=== PATIENT | female | born 1945 | race Caucasian/White ===

== ENCOUNTER 2020-12-02 10:08 | Outpatient (REF) | payer MEDICARE, SELFPAY ==
[2020-12-02 12:24] LABS: Alanine Aminotransferase 13 U/L (0-31); Albumin Level 4.1 g/dL (3.5-5.0); Alkaline Phosphatase 60 U/L (39-117); Anion Gap 12 (12-20); Aspartate Amino Transferase 21 U/L (5-31); Bilirubin Total 0.7 mg/dL (0.0-1.0); Blood Urea Nitrogen 20 mg/dL (9-16); Calcium 8.7 mg/dL (8.4-10.2); Carbon Dioxide 28 mmol/L (22-29); Chloride 105 mmol/L (96-108); Cholesterol 167 mg/dL; Estimated Glomerular Filt Rate > 60; Glucose Fasting 109 mg/dL (60-99); HDL Cholesterol 49 mg/dL; LDL Cholesterol Calculated 102 mg/dl; Potassium 4.2 mmol/L (3.3-5.1); Sodium 141 mmol/L (135-145); Total Protein 6.6 g/dL (6.5-8.0); Triglycerides 81 mg/dL
[2020-12-02 13:16] LABS: Estimated Average Glucose 128 mg/dL; Hemoglobin A1c % 6.1 %
== END 2020-12-02 10:09 | disposition home or self-care (01) ==
LOC: HO.MANLR 10:08
PROVIDERS: PCP Internal Medicine; Visit Provider Physician Assistant
DX: E11.9 Type 2 diabetes mellitus without complications (principal)
CPT/HCPCS: 36415; 80053; 80061; 83036

== ENCOUNTER 2021-06-02 11:00 | Outpatient (REF) | payer MEDICARE, SELFPAY ==
[2021-06-02 14:36] LABS: Alanine Aminotransferase 12 U/L (0-31); Albumin Level 4.1 g/dL (3.5-5.0); Alkaline Phosphatase 65 U/L (39-117); Anion Gap 14 (12-20); Aspartate Amino Transferase 19 U/L (5-31); Bilirubin Total 0.6 mg/dL (0.0-1.0); Blood Urea Nitrogen 16 mg/dL (9-16); Calcium 9.4 mg/dL (8.4-10.2); Carbon Dioxide 25 mmol/L (22-29); Chloride 105 mmol/L (96-108); Cholesterol 166 mg/dL; Estimated Average Glucose 123 mg/dL; Estimated Glomerular Filt Rate > 60; Glucose Fasting 117 mg/dL (60-99); HDL Cholesterol 53 mg/dL; Hemoglobin A1c % 5.9 %; LDL Cholesterol Calculated 91 mg/dl; Potassium 4.4 mmol/L (3.3-5.1); Sodium 140 mmol/L (135-145); Total Protein 6.5 g/dL (6.5-8.0); Triglycerides 114 mg/dL
[2021-06-02 14:43] LABS: Creatinine Urine 91.18 mg/dL; Microalbumin Urine < 5.0 mg/L
== END 2021-06-02 11:01 | disposition home or self-care (01) ==
LOC: HO.MANLDS 11:00
PROVIDERS: PCP Physician Assistant; Visit Provider Physician Assistant
DX: E11.9 Type 2 diabetes mellitus without complications (principal); I10 Essential (primary) hypertension
CPT/HCPCS: 36415; 80053; 80061; 82043; 83036

== ENCOUNTER 2021-07-03 09:09 | Outpatient (REF) | payer MEDICARE, SELFPAY ==
--- NOTE | ~2021-07-03 | MM_ITS ---
EXAMINATION: MM SCREENING DIGITAL BREAST TOMOSYNTHESIS, BILATERAL CLINICAL INFORMATION: Screening. Asymptomatic. The lifetime risk of breast cancer based on the Tyrer-Cuzick Model is 3%. COMPARISON: Mammography: 07/30/2019, 07/28/2018, 07/22/2017 TECHNIQUE: Digital breast tomosynthesis is performed in both the craniocaudal and mediolateral oblique views along with computer-aided detection (CAD). Synthesized 2D images are generated from the tomosynthesis. FINDINGS: There are scattered areas of fibroglandular density (ACR BI-RADS breast composition Category b). Fibronodular parenchymal pattern is similar to prior exams. There is no developing density or significant mass or architectural abnormality. Scattered calcifications are again noted, round, vascular, and some ductal secretory. The axilla and skin contours are unremarkable. There are no significant changes. MM/MM tomosynthesis screening BI IMPRESSION: No significant changes from prior exams. ASSESSMENT: BI-RADS 2: Benign RECOMMENDATION: Routine annual mammography screening. This patient's information was entered into a reminder system with a target due date for their next mammogram.
== END 2021-07-03 09:10 | disposition home or self-care (01) ==
LOC: HO.MAMMO 09:09
PROVIDERS: Visit Provider Internal Medicine
DX: Z12.31 Encounter for screening mammogram for malignant neoplasm of breast (principal)
CPT/HCPCS: 77063; 77067

== ENCOUNTER 2021-12-27 11:18 | Outpatient (REF) | payer MEDICARE, SELFPAY ==
[2021-12-27 12:49] LABS: Estimated Average Glucose 123 mg/dL; Hemoglobin A1c % 5.9 %
[2021-12-27 12:53] LABS: Alanine Aminotransferase 14 U/L (0-31); Alkaline Phosphatase 65 U/L (39-117); Anion Gap 10 (12-20); Aspartate Amino Transferase 18 U/L (5-31); Bilirubin Total 0.8 mg/dL (0.0-1.0); Blood Urea Nitrogen 20 mg/dL (9-16); Calcium 9.3 mg/dL (8.4-10.2); Carbon Dioxide 28 mmol/L (22-29); Chloride 104 mmol/L (96-108); Cholesterol 183 mg/dL; Estimated Glomerular Filt Rate > 60; Glucose Fasting 115 mg/dL (60-99); HDL Cholesterol 51 mg/dL; LDL Cholesterol Calculated 110 mg/dl; Sodium 138 mmol/L (135-145); Total Protein 6.5 g/dL (6.5-8.0); Triglycerides 113 mg/dL
== END 2021-12-27 11:19 | disposition home or self-care (01) ==
LOC: HO.MANLDS 11:18
PROVIDERS: PCP Physician Assistant; Visit Provider Physician Assistant
DX: E11.9 Type 2 diabetes mellitus without complications (principal); I10 Essential (primary) hypertension
CPT/HCPCS: 36415; 80053; 80061; 83036

== ENCOUNTER 2022-06-29 10:41 | Outpatient (REF) | payer MEDICARE, SELFPAY ==
[2022-06-29 14:32] LABS: Alanine Aminotransferase 14 U/L (0-31); Albumin Level 4.2 g/dL (3.5-5.0); Alkaline Phosphatase 64 U/L (39-117); Anion Gap 14 (12-20); Aspartate Amino Transferase 20 U/L (5-31); Bilirubin Total 0.5 mg/dL (0.0-1.0); Blood Urea Nitrogen 18 mg/dL (9-16); Calcium 9.5 mg/dL (8.4-10.2); Carbon Dioxide 29 mmol/L (22-29); Chloride 104 mmol/L (96-108); Cholesterol 172 mg/dL; Estimated Average Glucose 126 mg/dL; Estimated Glomerular Filt Rate > 60; Glucose Random 119 mg/dL (60-115); HDL Cholesterol 60 mg/dL; Hemoglobin A1C 147.8116 umol/L; LDL Cholesterol Calculated 97 mg/dl; Sodium 142 mmol/L (135-145); Total Protein 6.6 g/dL (6.5-8.0); Triglycerides 79 mg/dL
== END 2022-06-29 10:42 | disposition home or self-care (01) ==
LOC: HO.MANLDS 10:41
PROVIDERS: Visit Provider Physician Assistant
DX: E11.9 Type 2 diabetes mellitus without complications (principal); I10 Essential (primary) hypertension
CPT/HCPCS: 36415; 80053; 80061; 83036

== ENCOUNTER 2022-07-12 09:25 | Outpatient (REF) | payer MEDICARE, SELFPAY ==
--- NOTE | ~2022-07-12 | MM_ITS ---
EXAMINATION: MM SCREENING DIGITAL BREAST TOMOSYNTHESIS, BILATERAL CLINICAL INFORMATION: Screening. Asymptomatic. The lifetime risk of breast cancer based on the Tyrer-Cuzick Model is 2.2%. COMPARISON: Mammography: July 03, 2021 and studies dating back to February 03, 2014 TECHNIQUE: Digital breast tomosynthesis is performed in both the craniocaudal and mediolateral oblique views along with computer-aided detection (CAD). Synthesized 2D images are generated from the tomosynthesis. FINDINGS: There are scattered areas of fibroglandular density (ACR BI-RADS breast composition Category b). There are no significant masses, abnormal calcifications, or other abnormalities. MM/MM tomosynthesis screening BI IMPRESSION: No significant changes from prior exam. ASSESSMENT: BI-RADS 1: Negative RECOMMENDATION: Routine annual mammography screening. This patient's information was entered into a reminder system with a target due date for their next mammogram.
== END 2022-07-12 09:26 | disposition home or self-care (01) ==
LOC: HO.MAMMO 09:25
PROVIDERS: PCP Internal Medicine; Visit Provider Internal Medicine
DX: Z12.31 Encounter for screening mammogram for malignant neoplasm of breast (principal)
CPT/HCPCS: 77063; 77067

== ENCOUNTER 2023-01-09 10:50 | Outpatient (REF) | payer MEDICARE, SELFPAY ==
[2023-01-09 13:16] LABS: Alanine Aminotransferase 10 U/L (0-31); Albumin Level 4.1 g/dL (3.5-5.0); Alkaline Phosphatase 73 U/L (39-117); Anion Gap 14 (12-20); Aspartate Amino Transferase 17 U/L (5-31); Bilirubin Total 0.9 mg/dL (0.0-1.0); Blood Urea Nitrogen 17 mg/dL (9-16); Carbon Dioxide 25 mmol/L (22-29); Chloride 105 mmol/L (96-108); Cholesterol 166 mg/dL; Estimated Glomerular Filt Rate > 60; Glucose Random 115 mg/dL (60-115); HDL Cholesterol 60 mg/dL; LDL Cholesterol Calculated 89 mg/dl; Potassium 4.4 mmol/L (3.3-5.1); Sodium 140 mmol/L (135-145); Total Protein 6.3 g/dL (6.5-8.0); Triglycerides 86 mg/dL
[2023-01-09 13:22] LABS: Estimated Average Glucose 126 mg/dL
[2023-01-09 13:35] LABS: Creatinine Urine 91.94 mg/dL; Microalbum/Creatinine Ratio Ur 11.9 ug/mg cr
== END 2023-01-09 10:51 | disposition home or self-care (01) ==
LOC: HO.MANLDS 10:50
PROVIDERS: Visit Provider Physician Assistant
DX: E11.9 Type 2 diabetes mellitus without complications (principal); I10 Essential (primary) hypertension
CPT/HCPCS: 36415; 80053; 80061; 82043; 83036

== ENCOUNTER 2023-07-15 11:07 | Outpatient (REF) | payer MEDICARE, SELFPAY ==
[2023-07-15 13:54] LABS: Alanine Aminotransferase 12 U/L (0-31); Albumin Level 3.9 g/dL (3.5-5.0); Alkaline Phosphatase 62 U/L (39-117); Anion Gap 14 (12-20); Aspartate Amino Transferase 18 U/L (5-31); Bilirubin Total 0.7 mg/dL (0.0-1.0); Blood Urea Nitrogen 19 mg/dL (9-16); Calcium 9.5 mg/dL (8.4-10.2); Carbon Dioxide 26 mmol/L (22-29); Chloride 104 mmol/L (96-108); Cholesterol 174 mg/dL (<200); Estimated Glomerular Filt Rate > 60; Glucose Random 113 mg/dL (60-115); HDL Cholesterol 55 mg/dL (>40); LDL Cholesterol Calculated 95 mg/dL (<100); Potassium 3.9 mmol/L (3.3-5.1); Sodium 140 mmol/L (135-145); Total Protein 6.7 g/dL (6.5-8.0); Triglycerides 120 mg/dL (<150)
== END 2023-07-15 11:08 | disposition home or self-care (01) ==
LOC: HO.MANLDS 11:07
PROVIDERS: Visit Provider Physician Assistant
DX: E11.9 Type 2 diabetes mellitus without complications (principal)
CPT/HCPCS: 36415; 80053; 80061

== ENCOUNTER 2024-01-07 11:15 | Outpatient (REF) | payer MEDICARE, SELFPAY ==
[2024-01-07 13:52] LABS: Estimated Average Glucose 131 mg/dL; Hemoglobin A1c % 6.2 % (<6.0)
[2024-01-07 14:07] LABS: Alanine Aminotransferase 11 U/L (0-31); Albumin Level 4.2 g/dL (3.5-5.0); Alkaline Phosphatase 64 U/L (39-117); Anion Gap 12 (12-20); Aspartate Amino Transferase 19 U/L (5-31); Bilirubin Total 0.8 mg/dL (0.0-1.0); Blood Urea Nitrogen 20 mg/dL (9-16); Calcium 9.7 mg/dL (8.4-10.2); Carbon Dioxide 27 mmol/L (22-29); Chloride 104 mmol/L (96-108); Cholesterol 197 mg/dL (<200); Estimated Glomerular Filt Rate > 60; Glucose Random 108 mg/dL (60-115); HDL Cholesterol 55 mg/dL (>40); LDL Cholesterol Calculated 121 mg/dL (<100); Potassium 3.9 mmol/L (3.3-5.1); Sodium 139 mmol/L (135-145); Total Protein 7.1 g/dL (6.5-8.0); Triglycerides 107 mg/dL (<150)
== END 2024-01-07 11:16 | disposition home or self-care (01) ==
LOC: HO.MANLDS 11:15
PROVIDERS: Visit Provider Physician Assistant
DX: E11.9 Type 2 diabetes mellitus without complications (principal); I10 Essential (primary) hypertension
CPT/HCPCS: 36415; 80053; 80061; 82043; 82570; 83036

== ENCOUNTER 2024-03-05 09:35 | Inpatient (IN) | payer MEDICARE, SELFPAY ==
--- NOTE | ~2024-03-05 | US_ITS ---
EXAMINATION: US ABDOMEN LIMITED CLINICAL INFORMATION: Gallbladder mass. COMPARISON: CT chest 03/05/2024. TECHNIQUE: Real-time imaging of the right upper quadrant abdominal viscera. FINDINGS: PANCREAS: Obscured by bowel gas. LIVER: The liver is not enlarged. No discrete liver mass is seen although there is suboptimal visualization. No visible biliary ductal dilatation. GALLBLADDER: Calcified gallstone versus calcified mass in the gallbladder is not well evaluated due to limited visualization. COMMON BILE DUCT: Obscured by bowel gas. RIGHT KIDNEY: Question mild hydronephrosis. No renal calculi or focal parenchymal lesions. The kidney measures 10.6 cm in maximum dimension. FREE FLUID: Moderate. US/US abdomen limited IMPRESSION: Significantly limited evaluation due to bowel gas and ascites. Calcified gallstone versus calcified mass in the gallbladder is not well evaluated. Recommend further evaluation with CT of the abdomen without and with intravenous contrast. Question mild hydronephrosis. Recommend further evaluation with CT of the abdomen and pelvis with intravenous contrast.
--- NOTE | ~2024-03-05 | XR_ITS ---
EXAMINATION: XR CHEST CLINICAL INFORMATION: Weakness COMPARISON: Same-day chest CT TECHNIQUE: 2 views of the chest were obtained. FINDINGS: There are multiple nodular opacities throughout the lungs. The cardiomediastinal silhouette is within normal limits. There are no pleural effusions. Small calcific density adjacent to the right humeral head is consistent with calcific tendinitis. No acute osseous abnormalities. XR/XR chest 2V IMPRESSION: Multiple pulmonary nodules are present. Chest CT was performed today.
--- NOTE | ~2024-03-05 | CT_ITS ---
EXAMINATION: CT CHEST WITHOUT CONTRAST CLINICAL INFORMATION: Multiple pulmonary nodules on chest radiograph COMPARISON: Chest radiograph earlier today TECHNIQUE: Multidetector volumetric CT imaging of the chest was done. Axial MIP volume rendering provided. Sagittal and coronal reformatted images were obtained. This CT examination was performed using dose optimization techniques as appropriate, variously including the following: *Automated exposure control *Adjustment of mA and/or kV according to patient size (this includes techniques or standardized protocols for targeted exams where dose is matched to indication/reason for exam; i.e. extremities or head) *Use of iterative reconstruction technique DLP: 275 mGy-cm FINDINGS: LUNGS: Innumerable pulmonary nodules are seen scattered throughout the lungs ranging in size from under a centimeter to up to 2 cm. Most are noncavitary but certainly a number of lesions are cavitary at one of the largest lesions which demonstrates cavitation is a 2 cm ovoid mass in the superior segment of the left lower lobe (5:183). No consolidations are seen. Central airways are patent. No significant emphysematous changes are noted. MEDIASTINUM: No significant mediastinal lymphadenopathy is seen. There is a large right hilar mass present which measures 3.9 x 1.8 x 2.1 cm (8:43 and 3:24). The lindsey are suboptimally evaluated secondary to lack of IV contrast. CORONARY ARTERY CALCIFICATION: Mild PLEURA: There is no pleural effusion. No pleural mass or thickening. AXILLA: No lymphadenopathy. UPPER ABDOMEN: Moderate ascites is present. The gallbladder is abnormal with irregular calcification near the fundus and some other calcifications which could represent gallstones. No biliary ductal dilatation or visualized liver mass is seen on the noncontrast CT. Stranding is present in the mesentery with some nodular masses seen again (3:51 and 56) which suggest the presence of omental carcinomatosis. Fluid density is seen within the renal pelves bilaterally which I suspect is parapelvic cysts but hydronephrosis cannot be excluded. This OSSEOUS STRUCTURES: No evidence of bony metastatic disease. CT/CT chest wo IV con IMPRESSION: 1. Innumerable pulmonary nodules some of which are cavitary. There is a large right hilar mass. Findings are most consistent with metastatic disease. 2. Abnormal gallbladder with calcifications and possible gallstones. A gallbladder mass cannot be excluded. Ultrasound of the gallbladder may be helpful. A paracentesis could be performed at that time for diagnosis. 3. Moderate ascites with omental carcinomatosis. 4. Fluid density in the renal pelves bilaterally which I suspect is parapelvic cysts but hydronephrosis cannot be excluded. Fleischner guidelines were followed.
--- NOTE | ~2024-03-05 | US_ITS ---
ULTRASOUND PARACENTESIS HISTORY: Ascites. Lung metastases and omental caking on cross-sectional imaging. Diagnostic and therapeutic. Risks and benefits and possible complications were discussed with the patient and consent form was signed. A safe pocket of ascitic fluid was identified using ultrasound guidance, and the overlying skin was marked. The abdomen prepped and draped in sterile fashion. 1% lidocaine was used as a local anesthetic. Using ultrasound guidance, a 5 fr catheter was placed into the ascitic pocket in the right upper quadrant. 1.4 liters of non-clotting, blood tinged fluid was removed passively. The catheter was then removed. A small sample was sent for laboratory analysis. A few technology sales representative images from before and after the examination were obtained. The procedure was performed by Torsten Deleon PA-C and supervised by Dr. [place]. US/US paracentesis abd w/image IMPRESSION: Ultrasound-guided diagnostic and therapeutic paracentesis as described above. No immediate complications
--- NOTE | ~2024-03-05 | CT_ITS ---
EXAMINATION: CT ABDOMEN AND PELVIS WITHOUT AND WITH CONTRAST CLINICAL INFORMATION: Gallbladder mass, possible mild hydronephrosis COMPARISON: Abdominal ultrasound from earlier same day. TECHNIQUE: Multidetector volumetric imaging was performed of the abdomen and pelvis before and after the IV administration of 85 mL of Omnipaque 350 intravenous contrast. Sagittal and coronal reformatted images were obtained on the technologist's workstation. This CT examination was performed using dose optimization techniques as appropriate, variously including the following: *Automated exposure control *Adjustment of mA and/or kV according to patient size (this includes techniques or standardized protocols for targeted exams where dose is matched to indication/reason for exam; i.e. extremities or head) *Use of iterative reconstruction technique DLP: 1800 mGy-cm FINDINGS: LUNG BASES: Redemonstrated, incompletely visualized innumerable, round, randomly distributed bilateral solid pulmonary nodules, better assessed on dedicated CT chest performed previous day. Multivessel coronary artery calcifications present. LIVER AND BILIARY TREE: Unremarkable. 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 No suspicious gallbladder lesions identified. PANCREAS: Unremarkable. SPLEEN: Unremarkable. ADRENAL GLANDS: Unremarkable. KIDNEYS AND URETERS: Mild left greater than right hydroureteronephrosis to the level of the pelvic inlet where the ureters course adjacent to the dominant left adnexal mass. GASTROINTESTINAL TRACT: Small esophageal hiatal hernia. Normal appendix. VASCULAR: Moderate aortoiliac calcific atherosclerosis. Dilated left gonadal vein courses between the left adnexal mass and the uterus. LYMPH NODES: Large right hilar lymph node, incompletely visualized. Enlarged bilateral iliac bifurcation lymph nodes, measuring up to 2.1 cm on the right (series 15, image 564), and 1.9 cm on the left (series 15, image 541). PERITONEUM: Small to moderate simple ascites extensive omental and peritoneal nodularity, for example an irregular, soft tissue attenuation left mid abdominal peritoneal nodule measures 2.3 x 1.2 cm (series 15, image 296) and a left anterior pelvic peritoneal nodule measures 2.3 x 1.2 cm (series 15, image 644). BLADDER: Unremarkable. PELVIC VISCERA: Large, well-circumscribed, heterogeneous attenuation left adnexal mass, measuring 22 x 12 x 12 cm (series 8, image 52; series 15, image 566), which displaces the uterus right anteriorly. Calcified uterine fundal myoma. Right ovarian 2.5 cm simple appearing cystic lesion. Right adnexa otherwise unremarkable. ABDOMINAL AND PELVIC WALL: Unremarkable. OSSEOUS STRUCTURES: Mild multilevel degenerative lumbar spondylosis. CT/CT abdomen pelvis wo/w IV con IMPRESSION: 1. Large, 22 cm heterogeneous attenuation left adnexal mass, highly suspicious for primary ovarian neoplasm, with evidence of omental/peritoneal carcinomatosis, and bilateral pelvic chilo disease. Extensive pulmonary and thoracic chilo disease better assessed on recent prior CT chest. 2. Mild left greater than right hydroureteronephrosis to the level of the pelvic inlet where the ureters course adjacent to the dominant left adnexal mass, likely relates to mass effect given size of pelvic mass, though direct ureteral involvement could appear similar. 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 No suspicious call bladder lesions identified.
[2024-03-05 09:36] VITALS: BP 128/74; PULSE 103; RESP 19; TEMP 36.6; O2SAT 95; BMI 28.3
--- NOTE | 2024-03-05 10:10 | ED.GENADULT ---
HPI - General Adult General Chief complaint: General Medical Stated complaint: Low BP, upper resp symptoms Time Seen by Provider: 03/05/24 10:08 Source: patient Mode of arrival: ambulatory Limitations: no limitations History of Present Illness ED Provider: Dr. Ryan Lopez HPI narrative: 79 year old female has never been here before PMH: HTN, HLd pre diabetes comes into the ER with cough congestion for two weeks which is resolving and now has decreased appetite and generalized weakness. Patient comes into the emergency department for 2 weeks of symptoms. She started with upper respiratory symptoms which gradually evolved into a runny nose urinary frequency weakness decreased appetite and decreased energy. She denies any room spinning or vertigo she denies any disequilibrium she denies any falls denies chest pain cough or shortness of breath she denies any abdominal pain. Related Data Allergies Allergy/AdvReac Type Severity Reaction Status Date / Time Sulfa (Sulfonamide Allergy Unknown Verified 03/05/24 09:44 Antibiotics) Review of Systems Review of Systems: Review of systems: General: Patient denies any fever chills recent illness or falls Musculoskeletal: Denies back pain or body aches or other injuries HEENT: denies headache, runny nose, ear pain Respiratory: denies shortness of breath, cough Cardiovascular: no chest pain or palpitations : denies dysuria, frequency Abdomen: no nausea vomiting denies abdominal pain Extremities: no swelling, no pain Skin: no diaphoresis Yes all other systems are reviewed and are negative PMFSH Social History Social History Smoked in Last 30 Days: No Use of substances other than those prescribed or required for medical reasons: No Advance Directives: Yes Advance Directives Information Provided: Yes Advance Directives on File: No Do you have a plan to hurt others: No Plan Physical Exam ED Vital Signs: Vital Signs - 24 hr 03/05/24 09:36 03/05/24 10:41 03/05/24 12:13 Temperature 98 F 98.2 F 98.2 F Pulse Rate 103 H 91 90 Respiratory Rate 19 18 16 Blood Pressure 128/74 127/63 126/53 L Pulse Oximetry 95 94 95 Oxygen Delivery Method Room Air Room Air Room Air BMI result Body Mass Index 28.3 General: Well-appearing well-nourished in no signs of distress HEENT: Normocephalic atraumatic throat and tongue coated with yellowish coat concerning for thrush Neck: No signs of JVD, no masses no tenderness or lymphadenopathy Cardiovascular: Regular rate and rhythm Respiratory: Clear to auscultation bilaterally Abdomen: Soft nontender no masses Extremities: Normal pedal pulses no signs of edema Skin: Dry warm no rashes Back: No tenderness full ROM Course Course Course Narrative: I explained the elevated calcium as well as the x-ray findings we will send patient for CT chest patient does have a family history of ovarian cancer in her mother she has no abdominal pain or distention. I will give the CT the chest and consult Hematology-Oncology. Reevaluation(s) Reevaluation #1: [id number] Pace who agreed with admission. I spoke with Dr. Marin who agrees with admission. Medications Administered Discontinued Medications Generic Name Dose Route Start Last Admin Trade Name Freq PRN Reason Stop Dose Admin Sodium Chloride 1,000 mls @ 999 mls/hr 03/05/24 10:30 03/05/24 12:41 Ns IV 03/05/24 11:30 Infused .Q1H1M BLANK Infusion Sodium Chloride 1,000 mls @ 999 mls/hr 03/05/24 11:30 03/05/24 12:35 Ns IV 03/05/24 12:30 999 mls/hr .Q1H1M BLANK Administration Pamidronate Disodium 60 mg/ 260 mls @ 130 mls/hr 03/05/24 11:31 03/05/24 12:35 Sodium Chloride IV 03/05/24 13:30 130 mls/hr ONCE ONE Administration Nystatin 500,000 unit 03/05/24 10:22 03/05/24 10:58 Nystatin Oral Susp 500,000 Unit/5 Ml Oral.Susp PO 03/05/24 10:23 500,000 unit ONCE ONE Administration Protocol Medical Decision Making Medical Decision Making [facility] Narrative: Her throat does look like thrush I will give nystatin to swish and swallow Patient is appearing cm generalized weakness very vague in her complaints looks very well we will recheck labs and reassess Differential Diagnosis Differential Diagnoses: The differential diagnosis associated with the presentation includes Vague symptoms generalized weakness electrolyte abnormality dehydration recent cold flu COVID new onset diabetes diabetic ketoacidosis dehydration thrush Admission/Observation Consideration of admission/observation: Escalation of care including admission/observation considered Consult Healthcare Provider Management of the patient was discussed with: Hospitalist and E Merchant Lab Data [facility] Lab Attestation statement: I reviewed the patient's lab results. Lab show calcium that is very elevated I will start the patient on IV bisphosphonate unfortunately were unable to give Reclast here except for the infusion centers I will start with pamidronate I will also give the patient fluids and calcitonin 03/05/24 10:53 03/05/24 10:53 Labs: Lab Results 03/05/24 03/05/24 03/05/24 Range/Units 10:53 11:27 11:28 WBC 12.8 H (4.8-10.8) X10*3/uL RBC 5.07 (4.20-5.50) X10*6/uL Hgb 14.3 (12.0-16.0) g/dl Hct 43.8 (37.0-47.0) % MCV 86.4 (80.0-98.0) fL MCH 28.2 (27.0-33.0) pg MCHC 32.6 (31.0-35.0) g/dl RDW 13.4 (11.0-16.0) % Plt Count 266 (160-400) X10*3/uL MPV 10.8 (9.4-12.3) fL Immature Gran % (Auto) 0.5 H (0.0-0.4) % Neut % (Auto) 80.2 H (45-73) % Lymph % (Auto) 8.5 L (20-40) % [place] % (Auto) 10.0 (2-11) % Eos % (Auto) 0.3 (0-4) % Baso % (Auto) 0.5 (0-2) % Lymph # (Auto) 1.1 L (1.2-4.9) X10*3/uL [place] # (Auto) 1.3 H (0.1-1.2) X10*3/uL Eos # (Auto) 0.0 (0.0-0.4) X10*3/uL Baso # (Auto) 0.1 (0.0-0.2) X10*3/uL Abs Immat Gran (auto) 0.06 H (0.00-0.03) X10*3/uL Absolute Neuts (auto) 10.2 H (2.0-8.3) x10*3/uL Absolute Nucleated RBC 0.000 (0.0-0.012) X10*3/uL Nucleated RBC % (auto) 0.0 (0.0-0.2) /100WBC VBG pH 7.42 (7.32-7.43) VBG pCO2 49 mmHg VBG pO2 34 mmHg VBG HCO3 32 H (22-26) mmol/L VBG O2 Saturation 50.0 % VBG Base Excess 6.7 mmol/L Sodium 136 (135-145) mmol/L Potassium 4.9 D (3.3-5.1) mmol/L Chloride 98 (96-108) mmol/L Carbon Dioxide 29 (22-29) mmol/L Anion Gap 14 (12-20) BUN 24 H (9-16) mg/dL Creatinine 0.97 (0.5-1.4) mg/dL Estim Creat Clear Calc 40.8 Estimated GFR 55 Random Glucose 101 (60-115) mg/dL Calcium 14.9 H* D (8.4-10.2) mg/dL Phosphorus 2.4 L (2.7-4.5) mg/dL Total Bilirubin 1.1 H (0.0-1.0) mg/dL Direct Bilirubin 0.3 (0.0-0.5) mg/dL AST 24 (5-31) U/L ALT 8 (0-31) U/L Alkaline Phosphatase 93 (39-117) U/L Total Protein 7.4 (6.5-8.0) g/dL Albumin 3.9 (3.5-5.0) g/dL Lipase 38 (8-78) U/L 25-OH Vitamin D Total 50.3 (>30) ng/mL Beta-Hydroxybutyrate 1.79 H (0.02-0.27) mmol/L TSH 1.87 (0.32-4.0) uIU/mL PTH Intact 40.9 (8.7-77.1) pg/mL Independent Interpretation I performed an independent interpretation of an: EKG and Plain X-Ray Interpretation: EG is normal but patient does an x-ray that shows multiple pulmonary nodules concerning cancer Critical Care Time Critical Care Time Critical Care Time: Yes Total Critical Care Time: 45 Attestation: Patient treated for hypercalcemia consultation with Hematology Oncology interpretation of x-ray and CT Discharge Plan Discharge Clinical Impression: Candidiasis of mouth, Weakness, Anorexia, Hypercalcemia, Acute dehydration, Multiple pulmonary nodules Patient Disposition: Admitted As Inpatient Print Language: Tamazight
[2024-03-05 10:41] VITALS: BP 127/63; PULSE 91; RESP 18; TEMP 36.8; O2SAT 94
--- NOTE | 2024-03-05 10:45 | PC.NURSE ---
pt is alert and oriented, skin pwd, respirations even and unlabored, ls clear, daughter reports that since February 24 pt has not been feeling well, dry cough taking Mucinex at home with out improvement, extreme general weakness to the point the pt is afraid that she might fall, denies feeling dizzy, denies pain and poor po intake at home-having some nausea and food not tasting right.
[2024-03-05] MEDS: 0.9 % Sodium Chloride 1,000 ML 999 ML IV ×2 (10:58→12:35)
[2024-03-05] MEDS: Nystatin Oral Susp 500,000 UNIT/5 ML ORAL.SUSP 500000 UNIT PO ×3 (10:58→22:37)
[2024-03-05 11:01] LABS: MANUAL DIFF FLAG NO
[2024-03-05 11:18] LABS: Basophils Absolute Auto 0.1 X10*3/uL (0.0-0.2); Basophils Percent Auto 0.5 % (0-2); Eosinophils Percent Auto 0.3 % (0-4); Hematocrit 43.8 % (37.0-47.0); Hemoglobin 14.3 g/dl (12.0-16.0); Imm Gran Abs Auto 0.06 X10*3/uL (0.00-0.03); Imm Gran Pct Auto 0.5 % (0.0-0.4); Lymphocytes Absolute Auto 1.1 X10*3/uL (1.2-4.9); Lymphocytes Percent Auto 8.5 % (20-40); Mean Corpuscular HGB Conc 32.6 g/dl (31.0-35.0); Mean Corpuscular Hemoglobin 28.2 pg (27.0-33.0); Mean Corpuscular Volume 86.4 fL (80.0-98.0); Mean Platelet Volume 10.8 fL (9.4-12.3); Monocytes Absolute Auto 1.3 X10*3/uL (0.1-1.2); Neutrophils Absolute Auto 10.2 x10*3/uL (2.0-8.3); Neutrophils Percent Auto 80.2 % (45-73); Platelet Count 266 X10*3/uL (160-400); Red Blood Count 5.07 X10*6/uL (4.20-5.50); Red Cell Distribution Width 13.4 % (11.0-16.0); White Blood Count 12.8 X10*3/uL (4.8-10.8)
[2024-03-05 11:21] LABS: Beta-Hydroxybutyrate 1.79 mmol/L (0.02-0.27)
[2024-03-05 11:24] LABS: Alanine Aminotransferase 8 U/L (0-31); Albumin Level 3.9 g/dL (3.5-5.0); Alkaline Phosphatase 93 U/L (39-117); Anion Gap 14 (12-20); Aspartate Amino Transferase 24 U/L (5-31); Bilirubin Direct 0.3 mg/dL (0.0-0.5); Bilirubin Total 1.1 mg/dL (0.0-1.0); Blood Urea Nitrogen 24 mg/dL (9-16); Calcium 14.9 mg/dL (8.4-10.2); Carbon Dioxide 29 mmol/L (22-29); Chloride 98 mmol/L (96-108); Creatinine Clr Calc Pharmacy 40.8; Estimated Glomerular Filt Rate 55; Glucose Random 101 mg/dL (60-115); Lipase 38 U/L (8-78); Potassium 4.9 mmol/L (3.3-5.1); Sodium 136 mmol/L (135-145); Total Protein 7.4 g/dL (6.5-8.0)
[2024-03-05 11:34] LABS: Venous Blood Gas Refer to POC result
[2024-03-05 11:35] LABS: VBG Base Excess 6.7 mmol/L; VBG HCO3 32 mmol/L (22-26); VBG pCO2 49 mmHg; VBG pH 7.42 (7.32-7.43); VBG pO2 34 mmHg
[2024-03-05 11:38] LABS: TSH reflex Free T4 1.87 uIU/mL (0.32-4.0)
--- NOTE | 2024-03-05 11:47 | PC.NURSE ---
Pamidronate requesteed from pharmacy for critical [id number]
[2024-03-05 12:09] LABS: Phosphorus 2.4 mg/dL (2.7-4.5)
[2024-03-05 12:13] VITALS: BP 126/53; PULSE 90; RESP 16; TEMP 36.8; O2SAT 95
[2024-03-05 12:27] LABS: Parathyroid Hormone Intact 40.9 pg/mL (8.7-77.1)
[2024-03-05 12:31] LABS: Vitamin D 25-OH Total 50.3 ng/mL (>30)
[2024-03-05] MEDS: Pamidronate Disodium 60 MG in 0.9 % Sodium Chloride 250 ML 130 MG IV (12:35)
--- NOTE | 2024-03-05 15:05 | P.HPHOSP_ITS ---
History of Present Illness Date of Service: 03/05/24 Attending physician on admission: Yana Marin Chief Complaint: Decreased appetite and generalized weakness Pt is an 79-year-old female with a PMH significant for?HTN and HLD who presents to the ED for evaluation of cough, generalized weakness, and anorexia x2 weeks. ?Patient reports symptoms began approximately 2 weeks ago when she developed constant cough that was occasionally productive of whitish sputum. Denies significant SOB or difficulty breathing. No fever or chills. Over the next 2 weeks patient felt progressively weaker and more fatigued. Has not felt like eating or drinking and noticed some weight loss. Initially contacted PCP who prescribed Mucinex, though patient's symptoms did not improve. Patient presents to the emergency room today due to low blood pressure measured at home last night and this morning, as well as respiratory symptoms that have not resolved with more conservative treatment. Patient denies past history of smoking, but exposed to secondhand smoke from father while growing up. No chest pain/pressure, palpitations. No nausea, vomiting, abdominal pain. In the ED pt was tachycardic up to 103 with slightly soft BP 126/53. Labs were significant for leukocytosis of 12.8, calcium of 14.9, phosphorus 2.4, bilirubin 1.1, and beta hydroxybutyrate 1.79. 25 OH vitamin-D WNL. PTH WNL. CXR showed multiple pulmonary nodules. CT?of chest showed innumerable pulmonary nodules some of which are cavitary, as well as a large right hilar mass consistent with metastatic disease. Also found moderate ascites with omental carcinomatosis. Also found fluid density in renal pelvis bilaterally possibly parapelvic cysts the hydro nephrosis can not be excluded. Pt was treated with bisphosphonates, nystatin, and IVF. Pt will be admitted to the hospital for treatment and further evaluation of hypercalcemia in the setting likely metastatic disease. Review of Systems 2 Review of Systems: Cough Generalized weakness, fatigue Anorexia Weight loss Denies fever, chills, nausea, vomiting, abdominal pain No shortness of breath or difficulty breathing No chest pain/pressure, palpitations [facility] Medical History (Updated 03/05/24 @ 16:48 by Malachi Pace MD) HLD (hyperlipidemia) HTN (hypertension) Meds Allergies Allergy/AdvReac Type Severity Reaction Status Date / Time Sulfa (Sulfonamide Allergy Unknown Verified 03/05/24 09:44 Antibiotics) Home Medications ?Medication ?Instructions ?Recorded ?Confirmed ?Last Taken ?Type aspirin 81 mg capsule 81 mg PO BEDTIME 03/05/24 03/05/24 03/02/24 History lisinopril 10 mg tablet 10 mg PO DAILY 03/05/24 03/05/24 03/04/24 History pravastatin 20 mg tablet 20 mg PO DAILY 03/05/24 03/05/24 03/02/24 History Physical Exam 2 Vital Signs and Narrative: Vital Signs: Last Vital Signs Temp 98.2 F 03/05/24 12:13 Pulse 90 03/05/24 12:13 Resp 16 03/05/24 12:13 BP 126/53 L 03/05/24 12:13 Pulse Ox 95 03/05/24 12:13 O2 Del Method Room Air 03/05/24 12:13 BMI result Body Mass Index 28.3 Constitutional: Alert, in no acute distress. Mental Status: Oriented to person, place and time. Eyes: Pupils are equal, round, and reactive to light. Ear, Nose, and Throat: White coating on tongue. Mucous membranes moist. Ears and nose without deformities. Trachea midline. Respiratory: Clear to auscultation bilaterally. No wheezing, rales, or rhonchi. Cardiovascular: S1, S2 regular. No murmurs, rubs, or gallops. Gastrointestinal: Abdomen soft, non-tender, non-distended. Normal bowel sounds. Neurologic: Cranial nerves II-XII are grossly intact bilaterally. No focal neurological deficits. Moves all extremities spontaneously. Global weakness noted. Skin: Warm, dry. Extremities: No edema. Psychiatric: Normal mood and affect. Results Labs 03/05/24 10:53 03/05/24 10:53 Labs: Laboratory Results - last 24 hr 03/05/24 03/05/24 03/05/24 10:53 11:27 11:28 MCV 86.4 MCH 28.2 MCHC 32.6 RDW 13.4 Plt Count 266 MPV 10.8 Immature Gran % (Auto) 0.5 H Neut % (Auto) 80.2 H Lymph % (Auto) 8.5 L [place] % (Auto) 10.0 Eos % (Auto) 0.3 Baso % (Auto) 0.5 Lymph # (Auto) 1.1 L [place] # (Auto) 1.3 H Eos # (Auto) 0.0 Baso # (Auto) 0.1 Abs Immat Gran (auto) 0.06 H Absolute Neuts (auto) 10.2 H Absolute Nucleated RBC 0.000 Nucleated RBC % (auto) 0.0 VBG pH 7.42 VBG pCO2 49 VBG pO2 34 VBG HCO3 32 H VBG O2 Saturation 50.0 VBG Base Excess 6.7 Anion Gap 14 Estim Creat Clear Calc 40.8 Estimated GFR 55 Random Glucose 101 Calcium 14.9 H* D Phosphorus 2.4 L Total Bilirubin 1.1 H Direct Bilirubin 0.3 AST 24 ALT 8 Alkaline Phosphatase 93 Total Protein 7.4 Albumin 3.9 Lipase 38 25-OH Vitamin D Total 50.3 Beta-Hydroxybutyrate 1.79 H TSH 1.87 PTH Intact 40.9 Imaging Radiologist's Impressions: Impressions Chest X-Ray 03/05/24 11:12 IMPRESSION: Multiple pulmonary nodules are present. Chest CT was performed today. Chest CT 03/05/24 12:37 IMPRESSION: 1. Innumerable pulmonary nodules some of which are cavitary. There is a large right hilar mass. Findings are most consistent with metastatic disease. 2. Abnormal gallbladder with calcifications and possible gallstones. A gallbladder mass cannot be excluded. Ultrasound of the gallbladder may be helpful. A paracentesis could be performed at that time for diagnosis. 3. Moderate ascites with omental carcinomatosis. 4. Fluid density in the renal pelves bilaterally which I suspect is parapelvic cysts but hydronephrosis cannot be excluded. Fleischner guidelines were followed. Assessment and Plan (1) Multiple pulmonary nodules: Status: Acute (2) Hypercalcemia: Status: Acute (3) Candidiasis of mouth: Status: Acute Plan Pt is an 79-year-old female with a PMH significant for?HTN and HLD who presents to the ED for evaluation of cough, generalized weakness, and anorexia x2 weeks. Pt will be admitted to the hospital for treatment and further evaluation of hypercalcemia in the setting likely metastatic disease. Pulmonary nodules CT of chest found a 1 pulmonary nodules with some cavitary, right hilar mass, and omental carcinomatosis concerning for metastatic disease Denies history of smoking, though exposed to secondhand smoke at home when younger Oncology consult Hypercalcemia Patient's calcium 14.9 at time of presentation PTH WNL, TSH WNL, 25-OH vitamin D WNL Likely secondary to likely metastatic disease seen on CT Patient given bisphosphonates in the ED Will treat with intranasal calcitonin daily Oncology consult Will hold on additional bisphosphonates pending oncology input Monitor on telemetry Oral candidiasis Patient with white film over tongue concerning for oral candidiasis In the setting of likely metastatic disease Treat with nystatin swish and swallow 500,000 units p.o. q.i.d. x7 days, started 03/05/2024 HTN BP has been soft, hold lisinopril HLD Continue statin Full Code Attending:?Dr. Guzman DVT Prophylaxis: Lovenox Pt will require a hospitalization of at least two nights for treatment and further evaluation of?hypercalcemia in the setting of likely metastatic disease. Patient will require close monitoring of cardiac function, treatment with bisphosphonates, and specialist consultation with Oncology. Quality Stroke Does the patient have a stroke diagnosis?: No VTE Prior VTE?: No VTE Risk Level:: Medical - moderate - high VTE Device Contraindication: Treatment Not Indicated VTE Drug Contraindication: N/A - Med Ordered
--- NOTE | 2024-03-05 15:08 | PHA.MEDREC ---
Pharmacy Consult ? Medication Reconciliation Pharmacy has completed the medication reconciliation. Patient was able to confirm medications and when she last took. Daughter was at bedside.
--- NOTE | 2024-03-05 16:43 | P.CNHO_ITS ---
Subjective - Subjective Chief complaint: Consult for: Pulmonary nodules. Hypercalcemia. Gallbladder mass. Patient: new to practice Consult date: 03/05/24 Requesting Physician: Arnaldo. Primary Care Provider: Suhas Mcintosh MD Family Provider: Arnaldo Medical Summary: DIAGNOSIS: 1. PULMONARY NODULES. HILAR MASS. 2. HYPERCALCEMIA. 3. GALLBLADDER MASS. 4. OMENTAL CARCINOMATOSIS. HPI - Consult Narrative Reason for consult: Consult for: Pulmonary nodules, hilar mass. Gallbladder mass. Narrative: Heavenly Hartman is a 79 year old unfortunate lady, who presented with loss of appetite and generalized weakness. In the ED pt was tachycardic up to 103 with a BP of 126/53. DATA BASE: Labs were significant for leukocytosis of 12.8, calcium of 14.9, phosphorus 2.4, bilirubin 1.1, and beta hydroxybutyrate 1.79. 25 OH vitamin-D WNL. PTH WNL. CXR showed multiple pulmonary nodules. CT?of chest showed: Innumerable pulmonary nodules some of which are cavitary, as well as a large right hilar mass consistent with metastatic disease. Also found moderate ascites with omental carcinomatosis. Fluid density in renal pelvis bilaterally possibly parapelvic cysts the hydro nephrosis can not be excluded. Pt was given IVF, Calcitonin and Pamidronate, a bisphosphonates, for the hypercalcemia. PMFSH significant for?HTN, HLD, and prediabetes. FAMILY HISTORY: Mom of Ovarian Cancer. SOCIAL HISTORY: She worked at [employer]. She did waitressing. She is . Has 2 kids. Denies smoking. Drinks infrequently. ROS: She has been rather fatigued lately. No fever/chills. Has lost her apetite for past couple of months. Has lost an unknown amount of weight. No SANDY. Has been dizzy. Has had cough and congestion, recently. C/O abdominal pain. Has nausea. Had a bout with vomiting, a couple of weeks ago. Was constipated a month ago. Took a laxative and had a good bowel cleanout. No dysuria/hematuria. Has arthritis of her knees. Has generalized weakness. Has felt depressed. Has felt pruritis. Review of Systems - Constitutional Reports system reviewed and no additional complaints, except as documented, Reports anorexia, Reports fatigue, Reports lack of energy, Reports malaise, Reports poor appetite, Reports weakness, Reports weight loss - Eyes Reports system reviewed and no additional complaints, except as documented - ENT Reports system reviewed and no additional complaints, except as documented - Cardiovascular Reports system reviewed and no additional complaints, except as documented - Respiratory Reports no additional respiratory complaints - Gastrointestinal Reports system reviewed and no additional complaints, except as documented - Genitourinary Reports no additional female genitourinary complaints - Musculoskeletal Reports system reviewed and no additional complaints, except as documented - Integumentary/Breasts Skin/Breast: Reports no additional skin complaints - Neurologic Reports system reviewed and no additional complaints, except as documented - Psychiatric Reports system reviewed and no additional complaints, except as documented - Endocrine Reports no additional endocrine complaints - Hematologic/Lymphatic Reports system reviewed and no additional complaints, except as documented - Allergic/Immunologic Reports system reviewed and no additional complaints, except as documented Oncology Screenings - ECOG Performance Status ECOG Performance Status: 2 [facility] Medical History: Medical History (Last Reviewed 03/10/24 @ 13:35 by Concha Jeronimo) HLD (hyperlipidemia) HTN (hypertension) Functional capacity: bed bound Patient : No Family History: Family History (Last Updated 03/10/24 @ 13:35 by Concha Jeronimo) Mother Ovarian cancer Social History: Social History (Last Updated 03/10/24 @ 13:35 by Concha Jeronimo) Living Situation History: Household Members: Family Housing: House Do you presently have visiting nurse or other home services: No Tobacco History: Patient Tobacco Use Status: Never used Tobacco Advance Directives: Advance Directives Date on File: 03/06/24 Occupation Assessmet: service: No Home Medications and Allergies Current Medications: Current Medications Acetaminophen (Acetaminophen 325 Mg Tablet) 650 mg PO Q6H PRN PRN Reason: Pain, Mild (Pain Scale 1-3) Aspirin (Aspirin Enteric Coated 81 Mg Tablet.Dr) 81 mg PO BEDTIME BLANK Benzonatate (Benzonatate 100 Mg Capsule) 100 mg PO TID PRN PRN Reason: Cough Calcitonin [place] (Calcitonin,[place],Synth Nasal 3.7 Ml Bottle) 1 spray NOSTRILALT DAILY BLANK Docusate Sodium (Docusate Sodium 100 Mg Capsule) 100 mg PO DAILY PRN PRN Reason: Constipation Enoxaparin Sodium (Enoxaparin Sodium 40 Mg/0.4 Ml Syringe) 40 mg SUBCUT Q24H BLANK Melatonin (Melatonin 3 Mg Tablet) 6 mg PO BEDTIME PRN PRN Reason: Insomnia Ondansetron HCl (Ondansetron Hcl 4 Mg/2 Ml Vial) 4 mg IVPUSH Q8H PRN PRN Reason: Nausea and Vomiting Pravastatin Sodium (Pravastatin Sodium 20 Mg Tablet) 20 mg PO DAILY [facility] Sodium Chloride (0.9 % Sodium Chloride Flush 3 Ml Syringe) 3 ml IVFLUSH QSHIFT [facility] Home Medications ?Medication ?Instructions ?Recorded ?Confirmed ?Type aspirin 81 mg capsule 81 mg PO BEDTIME 03/05/24 03/10/24 History pravastatin 20 mg tablet 20 mg PO DAILY 03/05/24 03/10/24 History Allergies Allergy/AdvReac Type Severity Reaction Status Date / Time Sulfa (Sulfonamide Allergy Unknown Verified 03/13/24 10:54 Antibiotics) Physical Exam Vital signs: Vital Signs Temp 98.2 F 03/05/24 12:13 Pulse 90 03/05/24 12:13 Resp 16 03/05/24 12:13 BP 126/53 L 03/05/24 12:13 Pulse Ox 95 03/05/24 12:13 O2 Del Method Room Air 03/05/24 12:13 Intake & Output 03/04/24 03/05/24 03/05/24 18:59 06:59 18:59 Intake Total 2260 / 2260 Balance 2260 / 2260 Intake: Intake, IV Amount 2260 / 2260 0.9 % Sodium Chloride 1,000 ml 2000 / 2000 @ 999 mls/hr IV .Q1H1M [facility] Rx#: [id number] Pamidronate Disodium 60 mg In 0 260 / 260 .9 % Sodium Chloride 250 ml @ 130 mls/hr IV ONCE ONE Rx#: [id number] Other: Weight 68.039 kg Weight 68.039 kg - Constitutional Present: moderate distress - Routine HEENT Exam Head: Present: normocephalic Eye: Present: normal appearance ENT: Present: mucous membranes moist - Routine Neck Exam Present: supple - Routine Abdominal Exam Present: distended, firm, tenderness - Routine Extremities Exam Present: nontender - Routine Skin Exam Present: intact, normal turgor Hem/Onc Consult Result - Labs CBC & Chem 7: 03/07/24 06:08 03/07/24 06:08 Labs: Short CBC 03/05/24 Range/Units 10:53 WBC 12.8 H (4.8-10.8) X10*3/uL Hgb 14.3 (12.0-16.0) g/dl Hct 43.8 (37.0-47.0) % Plt Count 266 (160-400) X10*3/uL BMP 03/05/24 10:53 Sodium 136 Potassium 4.9 D Chloride 98 Carbon Dioxide 29 BUN 24 H Creatinine 0.97 Calcium 14.9 H* D Liver Function 03/05/24 Range/Units 10:53 Total Bilirubin 1.1 H (0.0-1.0) mg/dL Direct Bilirubin 0.3 (0.0-0.5) mg/dL AST 24 (5-31) U/L ALT 8 (0-31) U/L Alkaline Phosphatase 93 (39-117) U/L Albumin 3.9 (3.5-5.0) g/dL Assessment and Plan Patient Active problem list reviewed?: Yes (1) Multiple pulmonary nodules Status: Acute Assessment and plan: This is an unfortunate 79-year-old lady who presented with generalized weakness and loss of appetite. DATABASE: CBC: WNL. CMP: Lytes WNL, BUN 24, DRYER FEEDER 0.97. Clifford 15. A lb 3.9. LFTs: 1./23/05. CEA: 144. CT scan of the chest revealed: 1. Innumerable pulmonary nodules some of which are cavitary. There is a large right hilar mass. Findings are most consistent with metastatic disease. 2. Abnormal gallbladder with calcifications and possible gallstones. A gallbladder mass cannot be excluded. Ultrasound of the gallbladder may be helpful. A paracentesis could be performed at that time for diagnosis. 3. Moderate ascites with omental carcinomatosis. 4. Fluid density in the renal pelves bilaterally which I suspect is parapelvic cysts but hydronephrosis cannot be excluded. 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 PLAN: Patient has already received pamidronate for the hypercalcemia. Will proceed with ultrasound of the abdomen to look for the gallbladder mass. Can do a paracentesis at the same time. This can be both diagnostic and therapeutic. If that is non diagnostic, will obtain biopsy of right hilar mass. Meanwhile check baseline tumor markers: CA 125: 92 and CA 19-9: <3. Further plan will depend upon the pathological diagnosis. Thank you, CC: Suhas Mcintosh. - Time Spent With Patient Time Spent with Patient (in minutes): 30
[2024-03-05] MEDS: Enoxaparin Sodium 40 MG/0.4 ML SYRINGE SUBCUT (16:58)
[2024-03-05] MEDS: 0.9 % Sodium Chloride Flush 3 ML SYRINGE IVFLUSH ×2 (16:59→22:37)
[2024-03-05 17:23] VITALS: BP 127/98; PULSE 88; RESP 16; TEMP 37; O2SAT 95
[2024-03-05 20:00] VITALS: BP 119/57; PULSE 85; RESP 18; TEMP 37; O2SAT 96
[2024-03-05] MEDS: Aspirin Enteric Coated 81 MG TABLET.DR PO (22:37)
[2024-03-06] VITALS (9 sets, daily range): BP systolic 110–135; BP diastolic 57–69; PULSE 71–85; RESP 18; TEMP 36.6–37.2; O2SAT 92–95
[2024-03-06 00:51] LABS: Appearance Urine Clear; Color Urine Yellow; Glucose Urine UA Negative (Negative); Leukocyte Esterase Urine Trace (Negative); Nitrite Urine Negative (Negative); PH 5.5 (5.0-9.0); UMIC TRIGGER UACC YES; Urine Blood Negative (Negative); Urine Ketones 15 mg/dL (Negative); Urine Protein Negative (Neg-Trace)
[2024-03-06 00:56] LABS: Bacteria Urine None Seen (None Seen); Hyaline Casts Urine 0-2 /LPF (0-2); RBC Urine 0-2 /HPF (0-2); WBC Urine 0-5 /HPF (0-5)
[2024-03-06 06:25] LABS: Hematocrit 38.5 % (37.0-47.0); Hemoglobin 12.6 g/dl (12.0-16.0); Mean Corpuscular HGB Conc 32.7 g/dl (31.0-35.0); Mean Corpuscular Hemoglobin 28.2 pg (27.0-33.0); Mean Corpuscular Volume 86.1 fL (80.0-98.0); Platelet Count 238 X10*3/uL (160-400); Red Blood Count 4.47 X10*6/uL (4.20-5.50); Red Cell Distribution Width 13.3 % (11.0-16.0); White Blood Count 10.6 X10*3/uL (4.8-10.8)
[2024-03-06 06:30] LABS: Anion Gap 12 (12-20); Blood Urea Nitrogen 19 mg/dL (9-16); Calcium 12.8 mg/dL (8.4-10.2); Carbon Dioxide 25 mmol/L (22-29); Chloride 105 mmol/L (96-108); Creatinine Clr Calc Pharmacy 54.9; Estimated Glomerular Filt Rate > 60; Glucose Random 84 mg/dL (60-115); Potassium 3.9 mmol/L (3.3-5.1); Sodium 138 mmol/L (135-145)
--- NOTE | 2024-03-06 07:01 | PC.NURSE ---
Patient arrived to the unit around 2100 with daughter present. Vitals obtained and stable.Admission assessment done, patient is A/O x3 speech is clear, she is stand by assist oob d/t weakness. Patient lung sounds are clear, abdomen is round semi- firm hypoactive bowel sounds . Patient denies pain and neuro deficits at this time. No edema noted. U/A sent to the lab. Patient has a productive cough in which she coughed up dark brown sputum, MD made aware . Patient informed that she has ultrasound 03/06. Patient states that she has a poor appetite and lost weight, she has poor po intake. No issues with her skin noted at this time . She takes medication whole with no complications. Call tracey present at this time, daughter at the bedside . Please see shift assessment for more details.
[2024-03-06] MEDS: Lidocaine HCl 1 % MPF 5 ML VIAL SUBCUT (10:39)
[2024-03-06 10:58] LABS: MN% 96.7 %; PMN% 3.3 %; RBC Peritoneal Fluid 0.105 X10*6/uL; WBC Peritoneal Fluid 0.677 X10*3/uL
--- NOTE | 2024-03-06 11:16 | MHC.CM.PN ---
IMM 03/06/24 Female 79 DX Hypercalcemia. She lives with family. She is independent with all functional mobility, NO AD. A PT eval was performed. PT recommends Home with services. Pt preferences for [facility] were obtained. The referral has been sent to [facility] at pt's request. [facility] Spouse will transport. A copy of her HCP has been requested.
--- NOTE | 2024-03-06 11:33 | HO.PM.IMPN ---
Subjective Subjective Date of Service: 03/06/24 Interval History: f/u on hypercalcemia, in setting of pulmonoary nodule concerning for malignancy she is feeling better tday, calcium level is down to 12.8 from 14.9 yesterday after IVF and Pamidronate Physical Exam Vital Signs: Vital Signs: Last Vital Signs Temp 97.9 F 03/06/24 11:12 Pulse 75 03/06/24 11:12 Resp 18 03/06/24 11:12 BP 117/59 L 03/06/24 11:12 Pulse Ox 95 03/06/24 11:12 O2 Del Method Room Air 03/06/24 11:12 BMI result Body Mass Index 28.3 General: AO X 3, no acute distress Resp: CTA bilateral CVS: S1,S2,RRR GI: +BS, NT, no distention Skin: No rash Neuro: motor grossly intact Psych: appropriate affect Objective Data Active Medications Acetaminophen (Acetaminophen 325 Mg Tablet) 650 mg PO Q6H PRN PRN Reason: Pain, Mild (Pain Scale 1-3) Aspirin (Aspirin Enteric Coated 81 Mg Tablet.Dr) 81 mg PO BEDTIME [facility] Last Admin: 03/05/24 22:37 Dose: 81 mg Documented By: RAOUL Benzonatate (Benzonatate 100 Mg Capsule) 100 mg PO TID PRN PRN Reason: Cough Calcitonin Veteran (Calcitonin,Veteran,Synth Nasal 3.7 Ml Bottle) 1 spray NOSTRILALT DAILY [facility] Last Admin: 03/06/24 11:14 Dose: Not Given Documented By: ADRIANNA Non-Admin Reason: Not In Room Docusate Sodium (Docusate Sodium 100 Mg Capsule) 100 mg PO DAILY PRN PRN Reason: Constipation Enoxaparin Sodium (Enoxaparin Sodium 40 Mg/0.4 Ml Syringe) 40 mg SUBCUT Q24H [facility] Last Admin: 03/05/24 16:58 Dose: 40 mg Documented By: LUIS ANGEL Melatonin (Melatonin 3 Mg Tablet) 6 mg PO BEDTIME PRN PRN Reason: Insomnia Nystatin (Nystatin Oral Susp 500,000 Unit/5 Ml Oral.Susp) 500,000 unit PO QID [facility]; Protocol Last Admin: 03/06/24 11:14 Dose: Not Given Documented By: ADRIANNA Non-Admin Reason: Not In Room Ondansetron HCl (Ondansetron Hcl 4 Mg/2 Ml Vial) 4 mg IVPUSH Q8H PRN PRN Reason: Nausea and Vomiting Pravastatin Sodium (Pravastatin Sodium 20 Mg Tablet) 20 mg PO DAILY [facility] Last Admin: 03/06/24 11:15 Dose: Not Given Documented By: ADRIANNA Non-Admin Reason: Not In Room Sodium Chloride (0.9 % Sodium Chloride Flush 3 Ml Syringe) 3 ml IVFLUSH QSHIFT [facility] Last Admin: 03/06/24 11:14 Dose: Not Given Documented By: ADRIANNA Non-Admin Reason: Not In Room Labs 03/06/24 05:47 03/06/24 05:47 Labs: Laboratory Results - last 24 hr 03/05/24 03/05/24 03/05/24 10:53 11:27 11:28 MCV MCH MCHC RDW Plt Count MPV Absolute Nucleated RBC Nucleated RBC % (auto) VBG pH 7.42 VBG pCO2 49 VBG pO2 34 VBG HCO3 32 H VBG O2 Saturation 50.0 VBG Base Excess 6.7 Anion Gap Estim Creat Clear Calc Estimated GFR Random Glucose Calcium Phosphorus 2.4 L Carcinoembryonic Ag 144.00 25-OH Vitamin D Total 50.3 TSH 1.87 PTH Intact 40.9 Urine Color Urine Appearance Urine pH Ur Specific [place] Urine Protein Urine Glucose (UA) Urine Ketones Urine Blood Urine Nitrite Ur Leukocyte Esterase Urine RBC Urine WBC Ur Squamous Epith Cells Urine Bacteria Hyaline Casts Peritoneal WBC Peritoneal RBC 03/06/24 03/06/24 03/06/24 00:30 05:47 10:00 MCV 86.1 MCH 28.2 MCHC 32.7 RDW 13.3 Plt Count 238 MPV 11.0 Absolute Nucleated RBC 0.000 Nucleated RBC % (auto) 0.0 VBG pH VBG pCO2 VBG pO2 VBG HCO3 VBG O2 Saturation VBG Base Excess Anion Gap 12 Estim Creat Clear Calc 54.9 Estimated GFR > 60 Random Glucose 84 Calcium 12.8 H* D Phosphorus Carcinoembryonic Ag 25-OH Vitamin D Total TSH PTH Intact Urine Color Yellow Urine Appearance Clear Urine pH 5.5 Ur Specific [place] 1.020 Urine Protein Negative Urine Glucose (UA) Negative Urine Ketones 15 Urine Blood Negative Urine Nitrite Negative Ur Leukocyte Esterase Trace H Urine RBC 0-2 Urine WBC 0-5 Ur Squamous Epith Cells 3-5 Urine Bacteria None Seen Hyaline Casts 0-2 Peritoneal WBC 0.677 Peritoneal RBC 0.105 Assessment and Plan (1) Multiple pulmonary nodules: Status: Acute (2) Hypercalcemia: Status: Acute (3) Acute dehydration: Status: Acute (4) Anorexia: Status: Acute (5) Weakness: Status: Acute Plan Pt is an 79-year-old female with a PMH significant for?HTN and HLD who presents to the ED for evaluation of cough, generalized weakness, and anorexia x2 weeks. Pt will be admitted to the hospital for treatment and further evaluation of hypercalcemia in the setting likely metastatic disease. Pulmonary nodules--concerning for mets, liver vs [employer] further testing with markers, US with paracentesis Oncology following Hypercalcemia--related to above and again pointing to malignancy PTH WNL, TSH WNL, 25-OH vitamin D WNL treatment with IVF, Pamidronate now level 12.8 from 14.9, likely to go down further Oral candidiasis--Nystatin swish and swallow 500,000 units p.o. q.i.d. x7 days, started 03/05/2024 HTN BP has been soft, hold lisinopril HLD Continue statin weakness related to above, feels better, and did with PT Full Code DVT Prophylaxis: Lovenox Pt will require a hospitalization of at least two nights for treatment and further evaluation of?hypercalcemia in the setting of likely metastatic disease. Patient will require close monitoring of cardiac function, treatment with bisphosphonates, and specialist consultation with Onco Quality Stroke Does the patient have a stroke diagnosis?: No VTE Prior VTE?: No VTE Risk Level:: Medical - moderate - high VTE Device Contraindication: Treatment Not Indicated VTE Drug Contraindication: N/A - Med Ordered
[2024-03-06 11:45] LABS: BF Shift QC OK YES; Lymphocyte Peritoneal Fl 37 %; Man Diluent Bkgrd OK YES; Monocytes Peritoneal Fl 4 %; Neutrophils Peritoneal Fluid 5 %; Other Peritioneal Fl 54 %
[2024-03-06] MEDS: 0.9 % Sodium Chloride 1,000 ML 125 ML IVCONT (12:53)
[2024-03-06] MEDS: Nystatin Oral Susp 500,000 UNIT/5 ML ORAL.SUSP 500000 UNIT PO ×3 (12:53→22:02)
--- NOTE | 2024-03-06 15:25 | PM.PROC ---
Brief Operative Note Date of procedure: 03/06/24 Pre-op diagnosis: ascites, lung metastases Procedure: US paracentesis 1.4 L non-clotting blood tinged fluid removed and sent for analysis. No immediate complications. Anesthesia: local Condition: stable Disposition: floor
[2024-03-06] MEDS: Enoxaparin Sodium 40 MG/0.4 ML SYRINGE SUBCUT (17:36)
[2024-03-06] MEDS: iohexoL 350 MG/ML 100 ML INFUS..BTL IV (19:15)
[2024-03-06] MEDS: Aspirin Enteric Coated 81 MG TABLET.DR PO (22:03)
[2024-03-06] MEDS: Pravastatin Sodium 20 MG TABLET PO (22:03)
[2024-03-07] MEDS: 0.9 % Sodium Chloride 1,000 ML 125 ML IVCONT (01:38)
[2024-03-07 03:05] VITALS: BP 126/58; PULSE 65; RESP 18; TEMP 36.5; O2SAT 91
[2024-03-07 06:35] LABS: Hematocrit 39.1 % (37.0-47.0); Hemoglobin 12.8 g/dl (12.0-16.0); Mean Corpuscular HGB Conc 32.7 g/dl (31.0-35.0); Mean Corpuscular Hemoglobin 28.3 pg (27.0-33.0); Mean Corpuscular Volume 86.5 fL (80.0-98.0); Mean Platelet Volume 10.4 fL (9.4-12.3); Platelet Count 199 X10*3/uL (160-400); Red Blood Count 4.52 X10*6/uL (4.20-5.50); Red Cell Distribution Width 13.4 % (11.0-16.0); White Blood Count 8.4 X10*3/uL (4.8-10.8)
[2024-03-07 07:04] LABS: Anion Gap 13 (12-20); Blood Urea Nitrogen 16 mg/dL (9-16); Calcium 11.4 mg/dL (8.4-10.2); Carbon Dioxide 22 mmol/L (22-29); Chloride 105 mmol/L (96-108); Creatinine Clr Calc Pharmacy 54.2; Estimated Glomerular Filt Rate > 60; Glucose Random 79 mg/dL (60-115); Potassium 3.8 mmol/L (3.3-5.1); Sodium 136 mmol/L (135-145)
[2024-03-07 07:33] VITALS: BP 125/61; PULSE 59; RESP 17; TEMP 36.4; O2SAT 94
[2024-03-07] MEDS: 0.9 % Sodium Chloride Flush 3 ML SYRINGE IVFLUSH (08:26)
[2024-03-07] MEDS: Nystatin Oral Susp 500,000 UNIT/5 ML ORAL.SUSP 500000 UNIT PO (08:28)
--- NOTE | 2024-03-07 09:28 | PM.DS ---
DS: Providers Provider Date of Service: 03/07/24 Date of admission: 03/05/24 15:53 Primary care physician: Suhas Mcintosh MD Consults: 03/05/24 16:08 Consult to Hematology / Oncology Routine Consulting Provider: Jackie Merida Reason for consultation: CT of chest suspicious for metastatic disease DS: Diagnosis Discharge Diagnosis (1) Multiple pulmonary nodules: Status: Acute (2) Hypercalcemia: Status: Acute (3) Acute dehydration: Status: Acute (4) Anorexia: Status: Acute (5) Weakness: Status: Acute DS: Summary Hospital Course Hospital Course: admission hpi Chief Complaint: Decreased appetite and generalized weakness Pt is an 79-year-old female with a PMH significant for?HTN and HLD who presents to the ED for evaluation of cough, generalized weakness, and anorexia x2 weeks. ?Patient reports symptoms began approximately 2 weeks ago when she developed constant cough that was occasionally productive of whitish sputum. Denies significant SOB or difficulty breathing. No fever or chills. Over the next 2 weeks patient felt progressively weaker and more fatigued. Has not felt like eating or drinking and noticed some weight loss. Initially contacted PCP who prescribed Mucinex, though patient's symptoms did not improve. Patient presents to the emergency room today due to low blood pressure measured at home last night and this morning, as well as respiratory symptoms that have not resolved with more conservative treatment. Patient denies past history of smoking, but exposed to secondhand smoke from father while growing up. No chest pain/pressure, palpitations. No nausea, vomiting, abdominal pain. In the ED pt was tachycardic up to 103 with slightly soft BP 126/53. Labs were significant for leukocytosis of 12.8, calcium of 14.9, phosphorus 2.4, bilirubin 1.1, and beta hydroxybutyrate 1.79. 25 OH vitamin-D WNL. PTH WNL. CXR showed multiple pulmonary nodules. CT?of chest showed innumerable pulmonary nodules some of which are cavitary, as well as a large right hilar mass consistent with metastatic disease. Also found moderate ascites with omental carcinomatosis. Also found fluid density in renal pelvis bilaterally possibly parapelvic cysts the hydro nephrosis can not be excluded. Pt was treated with bisphosphonates, nystatin, and IVF. Pt will be admitted to the hospital for treatment and further evaluation of hypercalcemia in the setting likely metastatic disease. Hospital hospice: The patient presented with the symptoms described and further evaluation revealed hypercalcemia with a level of 14.9 mg/dL. A CT scan of the chest showed numerous pulmonary nodules, some of which are cavitary, along with a large right hilar mass. These findings are highly indicative of metastatic disease. An abdominal ultrasound indicated the presence of either a calcified gallstone or a calcified mass in the gallbladder. A CT scan of the abdomen and pelvis: show 1. Large, 22 cm heterogeneous attenuation left adnexal mass, highly suspicious for primary ovarian neoplasm, with evidence of omental/peritoneal carcinomatosis, and bilateral pelvic chilo disease. Extensive pulmonary and thoracic chilo disease better assessed on recent prior CT chest. 2. Mild left greater than right hydroureteronephrosis to the level of the pelvic inlet where the ureters course adjacent to the dominant left adnexal mass, likely relates to mass effect given size of pelvic mass, though direct ureteral involvement could appear similar. 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 No suspicious call bladder lesions identified. The hypercalcemia was managed with intravenous fluids and Pamidronate, reducing the level to 11.4 mg/dL. The patient has oral thrush, currently being treated with Nystatin swish and swallow. For her anorexia, Megace will be prescribed. Follow-up with oncology on an outpatient basis is necessary for further evaluation and treatment. CA 19-9 and CA 125 levels are pending.. To follow up with oncology for further evaluation and managment Final diagnoses: Hypercalecemia pulmonary nodules anorexia Dehydration Time Attestation Discharge Coordination Time (in mins): 40 Quality: Safe Use of Opioids Does Pt have an Active Cancer Diagnosis on the Problem List?: No Quality: Stroke Does the patient have a stroke diagnosis?: No Physical Exam Vital Signs: Vital Signs: Last Vital Signs Temp 97.5 F 03/07/24 07:33 Pulse 59 03/07/24 07:33 Resp 17 03/07/24 07:33 BP 125/61 03/07/24 07:33 Pulse Ox 94 03/07/24 07:33 O2 Del Method Room Air 03/07/24 07:33 BMI result Body Mass Index 28.3 DS: Data Data Completed and Pending Pending studies at discharge: Pending at discharge 03/06/24 09:01 Cytology [PTH] Routine Labs on day of discharge: Laboratory Results - last 24 hr 03/06/24 03/07/24 10:00 06:08 WBC 8.4 RBC 4.52 Hgb 12.8 Hct 39.1 MCV 86.5 MCH 28.3 MCHC 32.7 RDW 13.4 Plt Count 199 MPV 10.4 Absolute Nucleated RBC 0.000 Nucleated RBC % (auto) 0.0 Sodium 136 Potassium 3.8 Chloride 105 Carbon Dioxide 22 Anion Gap 13 BUN 16 Creatinine 0.73 Estim Creat Clear Calc 54.2 Estimated GFR > 60 Random Glucose 79 Calcium 11.4 H D Peritoneal WBC 0.677 Peritoneal RBC 0.105 Periton Neutrophils 5 Periton Lymphocytes 37 Peritoneal Monocytes 4 Peritoneal Other Cells 54 Discharge Plan Discharge Anticipated Discharge Date/Time: 03/07/24 09:23 Patient Disposition: Home Health Service Discharge Diagnosis: Hypercalcemia, Pulmonoary nodules, dehydration, anorexia Referrals: [facility] [Outside] Suhas Mcintosh MD [Primary Care Provider] - 1 Week Jackie Merida MD [Physician] - 1 Week (Call Saturday for follow up aapointment) Discharge Medications: New megestrol 400 mg/10 mL (10 mL) Suspension 400 mg PO BID Qty: 180 0RF nystatin 100,000 unit/mL Suspension 500,000 unit PO QID Qty: 200 0RF Continued pravastatin 20 mg tablet 20 mg PO DAILY aspirin 81 mg Capsule 81 mg PO BEDTIME Discontinued lisinopril 10 mg tablet 10 mg PO DAILY No Action clotrimazole 10 mg Mario 10 mg MUCOUS MEMBRANE 5XD Qty: 50 0RF ondansetron 8 mg Tablet,Disintegrating 8 mg PO Q8H Qty: 60 4RF Discharge Orders: Discharge Order (Routine); Ordered 03/07/24 Ordered By: Pedro Guzman Diet: Advance to usual diet Activity on Discharge: As tolerated Stand Alone Forms: Patient Portal Discharge page Print Language: Occitan Care Plan Goals: recovery from hypercalcemia, full evaluation of lung nodules and apropriate treatment Health Concerns: lung nodules hypercalcemia (high calcium level) anorexia dehdyration thrush Plan of Treatment: Drink Plenty of fluid Stop taking Lisinopril take Megace to help with your apetite Follow up with Dr. Pace to discusses results and further treatment Assessment: See above Discharge Date/Time: 03/07/24 13:50
--- NOTE | 2024-03-07 10:34 | P.F2F_ITS ---
Service Date Service Date: 03/07/24 Encounter Date of encounter: 03/07/24 Reasons for Services Signs and symptoms assessed: weaknesss Reason for physical therapy: therapeutic exercises, gait/transfer training and energy conservation Homebound: Leaving the home is medically contraindicated at this time without the asist of a device and/or another person due th the listed conditions above and below. Reason homebound: fall risk related to blood pressure changes Homebound supporting statement: Homebound dueo weakness related hypercalcemia and concern for malignancy Certification: Based on the above findings, I certify that this patient is confined to the home and needs intermittent nursing home care, physical therapy and/or speech therapy, or continues to need occupational therapy. The patient is under my c are, and I have initiated the establishment of the plan of care. The patient will be followed by a physician who will periodically review the plan of care. Time Spent With Patient Time: Total time managing care of this patient today ____ minutes.
--- NOTE | 2024-03-07 10:47 | MHC.CM.PN ---
PT WILL DC HOME TODAY WITH [facility] TO TRANSPORT
[2024-03-07 11:49] VITALS: BP 138/65; PULSE 77; RESP 18; TEMP 36.6; O2SAT 94
[2024-03-07] MEDS: Megestrol Acetate 400 MG/10 ML ORAL.SUSP PO (11:55)
--- NOTE | 2024-03-07 12:02 | PM.HEMONCPN ---
Medical Summary - Medical Summary Date of Service: 03/07/24 Chief complaint: advanced cancer Primary Care Provider: Suhas Mcintosh MD Medical Summary: DIAGNOSIS: 1. PULMONARY NODULES. HILAR MASS. 2. HYPERCALCEMIA. 3. GALLBLADDER MASS. 4. OMENTAL CARCINOMATOSIS. She feels tired. A tissue diagnosis is pending. Her calcium is dropping towrdsnormal. Ct of the abdomen and pelvis is done but not read showing large pelvic mass with ascite and adenopathy. A right hilar mass is also seen. Interval History Interval history: Heavenly Hartman is a 79 year old unfortunate lady, who presented with loss of appetite and generalized weakness. In the ED pt was tachycardic up to 103 with a BP of 126/53. DATA BASE: Labs were significant for leukocytosis of 12.8, calcium of 14.9, phosphorus 2.4, bilirubin 1.1, and beta hydroxybutyrate 1.79. 25 OH vitamin-D WNL. PTH WNL. CXR showed multiple pulmonary nodules. CT?of chest showed: Innumerable pulmonary nodules some of which are cavitary, as well as a large right hilar mass consistent with metastatic disease. Also found moderate ascites with omental carcinomatosis. Fluid density in renal pelvis bilaterally possibly parapelvic cysts the hydro nephrosis can not be excluded. Pt was given IVF, Calcitonin and Pamidronate, a bisphosphonates, for the hypercalcemia. PMFSH significant for?HTN, HLD, and prediabetes. FAMILY HISTORY: Mom of Ovarian Cancer. SOCIAL HISTORY: She worked at [employer]. She did waitressing. She is . Has 2 kids. Denies smoking. Drinks infrequently. ROS: She has been rather fatigued lately. No fever/chills. Has lost her apetite for past couple of months. Has lost an unknown amount of weight. No SANDY. Has been dizzy. Has had cough and congestion, recently. C/O abdominal pain. Has nausea. Had a bout with vomiting, a couple of weeks ago. Was constipated a month ago. Took a laxative and had a good bowel cleanout. No dysuria/hematuria. Has arthritis of her knees. Has generalized weakness. Has felt depressed. Has felt pruritis. Review of Systems - Constitutional Reports anorexia - Cardiovascular Reports shortness of breath - Respiratory Reports dyspnea on exertion - Gastrointestinal Reports abdominal pain, Reports belching, Reports vomiting - Genitourinary Reports other - Musculoskeletal Reports numbness - Neurologic Reports system reviewed and no additional complaints, except as documented, Reports weakness PMFSH Medical History: Medical History (Last Reviewed 03/06/24 @ 08:18 by Alia Brown PT) HLD (hyperlipidemia) HTN (hypertension) Functional capacity: bed bound Social History: Social History Living Situation History: Household Members: Family Housing: House Do you presently have visiting nurse or other home services: No Tobacco History: Patient Tobacco Use Status: Never used Tobacco Advance Directives: Advance Directives Date on File: 03/06/24 Occupation Assessmet: service: No Home Medications and Allergies Current Medications: Current Medications Acetaminophen (Acetaminophen 325 Mg Tablet) 650 mg PO Q6H PRN PRN Reason: Pain, Mild (Pain Scale 1-3) Aspirin (Aspirin Enteric Coated 81 Mg Tablet.Dr) 81 mg PO BEDTIME [facility] Last Admin: 03/06/24 22:03 Dose: 81 mg Benzonatate (Benzonatate 100 Mg Capsule) 100 mg PO TID PRN PRN Reason: Cough Calcitonin [place] (Calcitonin,[place],Synth Nasal 3.7 Ml Bottle) 1 spray NOSTRILALT DAILY [facility] Last Admin: 03/07/24 08:31 Dose: Not Given Docusate Sodium (Docusate Sodium 100 Mg Capsule) 100 mg PO DAILY PRN PRN Reason: Constipation Enoxaparin Sodium (Enoxaparin Sodium 40 Mg/0.4 Ml Syringe) 40 mg SUBCUT Q24H [facility] Last Admin: 03/06/24 17:36 Dose: 40 mg Megestrol Acetate (Megestrol Acetate 400 Mg/10 Ml Oral.Susp) 400 mg PO BID [facility] Last Admin: 03/07/24 11:55 Dose: 400 mg Melatonin (Melatonin 3 Mg Tablet) 6 mg PO BEDTIME PRN PRN Reason: Insomnia Nystatin (Nystatin Oral Susp 500,000 Unit/5 Ml Oral.Susp) 500,000 unit PO QID [facility]; Protocol Last Admin: 03/07/24 08:28 Dose: 500,000 unit Ondansetron HCl (Ondansetron Hcl 4 Mg/2 Ml Vial) 4 mg IVPUSH Q8H PRN PRN Reason: Nausea and Vomiting Pravastatin Sodium (Pravastatin Sodium 20 Mg Tablet) 20 mg PO BEDTIME [facility] Last Admin: 03/06/24 22:03 Dose: 20 mg Sodium Chloride (0.9 % Sodium Chloride Flush 3 Ml Syringe) 3 ml IVFLUSH QSHIFT [facility] Last Admin: 03/07/24 08:26 Dose: 3 ml Home Medications ?Medication ?Instructions ?Recorded ?Confirmed ?Type aspirin 81 mg capsule 81 mg PO BEDTIME 03/05/24 03/05/24 History pravastatin 20 mg tablet 20 mg PO DAILY 03/05/24 03/05/24 History Allergies Allergy/AdvReac Type Severity Reaction Status Date / Time Sulfa (Sulfonamide Allergy Unknown Verified 03/05/24 09:44 Antibiotics) Exam Vital signs: Vital Signs Temp 97.8 F 03/07/24 11:49 Pulse 77 03/07/24 11:49 Resp 18 03/07/24 11:49 BP 138/65 03/07/24 11:49 Pulse Ox 94 03/07/24 11:49 O2 Del Method Room Air 03/07/24 11:49 Intake & Output 03/06/24 03/07/24 03/07/24 18:59 06:59 18:59 Intake Total 527.5 / 1240.0 712.5 / 1240.0 847.917 / 847.917 Output Total 2 / 2 Balance 527.5 / 1238.0 710.5 / 1238.0 847.917 / 847.917 Urine Output (Average ml/kg/hr) 0.00 0.00 Intake: Intake, Oral Amount 240 / 240 Intake, IV Amount 287.5 / 1000.0 712.5 / 1000.0 847.917 / 847.917 0.9 % Sodium Chloride 1,000 ml 287.5 / 1000.0 712.5 / 1000.0 847.917 / 847.917 @ 125 mls/hr IVCONT .Q8H [facility] Rx #:[id number] Output: Output, Urine Amount 2 / 2 Other: Number of Unmeasured Voids 2 Urine Bathroom Bedside Commode Urine Color Yellow Weight 68.039 kg BMI result Body Mass Index 28.3 - Constitutional Present: no acute distress, moderate distress - Routine HEENT Exam Head: Present: atraumatic, normocephalic ENT: Present: mucous membranes moist - Routine Neck Exam Present: full ROM - Routine Chest/Breast/Axilla Exam Breast: Present: Normal Exam - Routine Respiratory Exam Present: wheezes - Routine Cardiovascular Exam Cardiovascular: Present: RRR - Routine Abdominal Exam Present: distended, firm, tenderness - Routine Extremities Exam Present: nontender - Routine Skin Exam Present: intact, normal turgor Data - Labs CBC & Chem 7: 03/07/24 06:08 03/07/24 06:08 Labs: Laboratory Last Values WBC 8.4 X10*3/uL (4.8-10.8) 03/07/24 06:08 RBC 4.52 X10*6/uL (4.20-5.50) 03/07/24 06:08 Hgb 12.8 g/dl (12.0-16.0) 03/07/24 06:08 Hct 39.1 % (37.0-47.0) 03/07/24 06:08 MCV 86.5 fL (80.0-98.0) 03/07/24 06:08 MCH 28.3 pg (27.0-33.0) 03/07/24 06:08 MCHC 32.7 g/dl (31.0-35.0) 03/07/24 06:08 RDW 13.4 % (11.0-16.0) 03/07/24 06:08 Plt Count 199 X10*3/uL (160-400) 03/07/24 06:08 MPV 10.4 fL (9.4-12.3) 03/07/24 06:08 Immature Gran % (Auto) 0.5 % (0.0-0.4) H 03/05/24 10:53 Neut % (Auto) 80.2 % (45-73) H 03/05/24 10:53 Lymph % (Auto) 8.5 % (20-40) L 03/05/24 10:53 Gem % (Auto) 10.0 % (2-11) 03/05/24 10:53 Eos % (Auto) 0.3 % (0-4) 03/05/24 10:53 Baso % (Auto) 0.5 % (0-2) 03/05/24 10:53 Lymph # (Auto) 1.1 X10*3/uL (1.2-4.9) L 03/05/24 10:53 Gem # (Auto) 1.3 X10*3/uL (0.1-1.2) H 03/05/24 10:53 Eos # (Auto) 0.0 X10*3/uL (0.0-0.4) 03/05/24 10:53 Baso # (Auto) 0.1 X10*3/uL (0.0-0.2) 03/05/24 10:53 Abs Immat Gran (auto) 0.06 X10*3/uL (0.00-0.03) H 03/05/24 10:53 Absolute Neuts (auto) 10.2 x10*3/uL (2.0-8.3) H 03/05/24 10:53 Absolute Nucleated RBC 0.000 X10*3/uL (0.0-0.012) 03/07/24 06:08 Nucleated RBC % (auto) 0.0 /100WBC (0.0-0.2) 03/07/24 06:08 VBG pH 7.42 (7.32-7.43) 03/05/24 11:28 VBG pCO2 49 mmHg 03/05/24 11:28 VBG pO2 34 mmHg 03/05/24 11:28 VBG HCO3 32 mmol/L (22-26) H 03/05/24 11:28 VBG O2 Saturation 50.0 % 03/05/24 11:28 VBG Base Excess 6.7 mmol/L 03/05/24 11:28 Sodium 136 mmol/L (135-145) 03/07/24 06:08 Potassium 3.8 mmol/L (3.3-5.1) 03/07/24 06:08 Chloride 105 mmol/L (96-108) 03/07/24 06:08 Carbon Dioxide 22 mmol/L (22-29) 03/07/24 06:08 Anion Gap 13 (12-20) 03/07/24 06:08 BUN 16 mg/dL (9-16) 03/07/24 06:08 Creatinine 0.73 mg/dL (0.5-1.4) 03/07/24 06:08 Estim Creat Clear Calc 54.2 03/07/24 06:08 Estimated GFR > 60 03/07/24 06:08 Random Glucose 79 mg/dL (60-115) 03/07/24 06:08 Calcium 11.4 mg/dL (8.4-10.2) H D 03/07/24 06:08 Phosphorus 2.4 mg/dL (2.7-4.5) L 03/05/24 10:53 Total Bilirubin 1.1 mg/dL (0.0-1.0) H 03/05/24 10:53 Direct Bilirubin 0.3 mg/dL (0.0-0.5) 03/05/24 10:53 AST 24 U/L (5-31) 03/05/24 10:53 ALT 8 U/L (0-31) 03/05/24 10:53 Alkaline Phosphatase 93 U/L (39-117) 03/05/24 10:53 Total Protein 7.4 g/dL (6.5-8.0) 03/05/24 10:53 Albumin 3.9 g/dL (3.5-5.0) 03/05/24 10:53 Lipase 38 U/L (8-78) 03/05/24 10:53 Carcinoembryonic Ag 144.00 ng/mL 03/05/24 10:53 25-OH Vitamin D Total 50.3 ng/mL (>30) 03/05/24 10:53 Beta-Hydroxybutyrate 1.79 mmol/L (0.02-0.27) H 03/05/24 10:53 TSH 1.87 uIU/mL (0.32-4.0) 03/05/24 10:53 PTH Intact 40.9 pg/mL (8.7-77.1) 03/05/24 11:27 Urine Color Yellow 03/06/24 00:30 Urine Appearance Clear 03/06/24 00:30 Urine pH 5.5 (5.0-9.0) 03/06/24 00:30 Ur Specific Cherry Log 1.020 (1.005-1.025) 03/06/24 00:30 Urine Protein Negative mg/dL (Neg-Trace) 03/06/24 00:30 Urine Glucose (UA) Negative mg/dL (Negative) 03/06/24 00:30 Urine Ketones 15 mg/dL (Negative) 03/06/24 00:30 Urine Blood Negative (Negative) 03/06/24 00:30 Urine Nitrite Negative (Negative) 03/06/24 00:30 Ur Leukocyte Esterase Trace (Negative) H 03/06/24 00:30 Urine RBC 0-2 /HPF (0-2) 03/06/24 00:30 Urine WBC 0-5 /HPF (0-5) 03/06/24 00:30 Ur Squamous Epith Cells 3-5 /HPF (0-2) 03/06/24 00:30 Urine Bacteria None Seen (None Seen) 03/06/24 00:30 Hyaline Casts 0-2 /LPF (0-2) 03/06/24 00:30 Peritoneal WBC 0.677 X10*3/uL 03/06/24 10:00 Peritoneal RBC 0.105 X10*6/uL 03/06/24 10:00 Periton Neutrophils 5 % 03/06/24 10:00 Periton Lymphocytes 37 % 03/06/24 10:00 Peritoneal Monocytes 4 % 03/06/24 10:00 Peritoneal Other Cells 54 % 03/06/24 10:00 - Imaging Radiologist's impression: ITS Impressions Chest X-Ray 03/05/24 11:12 IMPRESSION: Multiple pulmonary nodules are present. Chest CT was performed today. Chest CT 03/05/24 12:37 IMPRESSION: 1. Innumerable pulmonary nodules some of which are cavitary. There is a large right hilar mass. Findings are most consistent with metastatic disease. 2. Abnormal gallbladder with calcifications and possible gallstones. A gallbladder mass cannot be excluded. Ultrasound of the gallbladder may be helpful. A paracentesis could be performed at that time for diagnosis. 3. Moderate ascites with omental carcinomatosis. 4. Fluid density in the renal pelves bilaterally which I suspect is parapelvic cysts but hydronephrosis cannot be excluded. Fleischner guidelines were followed. Abdomen Ultrasound 03/06/24 09:44 IMPRESSION: Significantly limited evaluation due to bowel gas and ascites. Calcified gallstone versus calcified mass in the gallbladder is not well evaluated. Recommend further evaluation with CT of the abdomen without and with intravenous contrast. Question mild hydronephrosis. Recommend further evaluation with CT of the abdomen and pelvis with intravenous contrast. Paracentesis Ultrasound 03/06/24 10:15 IMPRESSION: Ultrasound-guided diagnostic and therapeutic paracentesis as described above. No immediate complications Abdomen/Pelvis CT 03/06/24 19:29 IMPRESSION: 1. Large, 22 cm heterogeneous attenuation left adnexal mass, highly suspicious for primary ovarian neoplasm, with evidence of omental/peritoneal carcinomatosis, and bilateral pelvic chilo disease. Extensive pulmonary and thoracic chilo disease better assessed on recent prior CT chest. 2. Mild left greater than right hydroureteronephrosis to the level of the pelvic inlet where the ureters course adjacent to the dominant left adnexal mass, likely relates to mass effect given size of pelvic mass, though direct ureteral involvement could appear similar. 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 No suspicious call bladder lesions identified. Assessment and Plan Patient Active problem list reviewed?: Yes (1) Multiple pulmonary nodules Status: Acute Assessment and plan: This is an unfortunate 79-year-old lady who presented with generalized weakness and loss of appetite. DATABASE: CBC: WNL. 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 Clifford 15. A lb 3.9. LFTs: 1./24/8. CEA: 144. CT scan of the chest revealed: 1. Innumerable pulmonary nodules some of which are cavitary. There is a large right hilar mass. Findings are most consistent with metastatic disease. 2. Abnormal gallbladder with calcifications and possible gallstones. A gallbladder mass cannot be excluded. Ultrasound of the gallbladder may be helpful. A paracentesis could be performed at that time for diagnosis. 3. Moderate ascites with omental carcinomatosis. 4. Fluid density in the renal pelves bilaterally which I suspect is parapelvic cysts but hydronephrosis cannot be excluded. Concern is underlying hepatobiliary versus web offset press feeder malignancy, with carcinomatosis and pulmonary metastases. PLAN: Patient has already received pamidronate for the hypercalcemia. Will proceed with ultrasound of the abdomen to look for the gallbladder mass. Can do a paracentesis at the same time. This can be both diagnostic and therapeutic. Meanwhile check baseline tumor markers: CA 125 and CA 19-9. For the plan will depend upon the pathological diagnosis. Thank you, CC: Suhas Mcintosh. - Time Spent With Patient Time Spent with Patient (in minutes): 30
[2024-03-09 07:23] LABS: Total Protein Peritoneal Fluid 4.4
[2024-03-09 07:27] LABS: Glucose Peritoneal Fluid 89
[2024-03-09 12:29] LABS: CA-125 92 U/mL (<35)
[2024-03-10 08:53] LABS: Carbohydrate Antigen 19-9 <3 U/mL (<34)
== END 2024-03-07 13:50 | disposition home health service (06) | DRG 755 ==
LOC: HO.ED 13:44 → HO.EDOVER 16:17 → HO.IMC 18:06
PROVIDERS: Internal Medicine Medical Oncology; Admitting Provider Student in an Organized Health Care Education/Training Program; Emergency Provider Student in an Organized Health Care Education/Training Program; PCP Internal Medicine; Visit Provider Internal Medicine
DX: C56.2 Malignant neoplasm of left ovary (principal); B37.0 Candidal stomatitis; C77.5 Secondary and unspecified malignant neoplasm of intrapelvic lymph nodes; C78.02 Secondary malignant neoplasm of left lung; C78.01 Secondary malignant neoplasm of right lung; C78.6 Secondary malignant neoplasm of retroperitoneum and peritoneum; I10 Essential (primary) hypertension; R73.03 Prediabetes; E86.0 Dehydration; E83.52 Hypercalcemia; E78.5 Hyperlipidemia, unspecified; Z77.22 Contact with and (suspected) exposure to environmental tobacco smoke (acute) (chronic); Z79.82 Long term (current) use of aspirin; Z79.899 Other long term (current) drug therapy
CPT/HCPCS: 36415; 49083; 71046; 71250; 74178; 76705; 80048; 80076; 81001; 82010; 82306; 82378; 82803; 82945; 83690; 83970; 84100; 84157; 84443; 85025; 85027; 86301; 86304; 87070; 87073; 87205; 88112; 88305; 88341; 88342; 89051; 97162; 99285; J1650; J2430; Q9967

== ENCOUNTER 2024-03-05 15:53 | Outpatient (BNV) | payer MEDICARE, SELFPAY | END 2024-03-06 08:00 | PROVIDERS: Admitting Provider Student in an Organized Health Care Education/Training Program; Emergency Provider Student in an Organized Health Care Education/Training Program; PCP Internal Medicine; Visit Provider Physician Assistant Surgical | DX: R18.8 Other ascites (principal) | CPT/HCPCS: 49083 ==

== ENCOUNTER → 2024-03-05 15:53 | Outpatient (BNV) | payer MEDICARE, SELFPAY | PROVIDERS: Admitting Provider Student in an Organized Health Care Education/Training Program; Emergency Provider Student in an Organized Health Care Education/Training Program; PCP Internal Medicine; Visit Provider Student in an Organized Health Care Education/Training Program | DX: R91.8 Other nonspecific abnormal finding of lung field (principal); E83.52 Hypercalcemia; E86.0 Dehydration; R63.0 Anorexia; R53.1 Weakness | CPT/HCPCS: 99223; 99232; 99239; G0180 ==

== ENCOUNTER → 2024-03-05 15:53 | Outpatient (BNV) | payer MEDICARE, SELFPAY | PROVIDERS: Admitting Provider Student in an Organized Health Care Education/Training Program; Emergency Provider Student in an Organized Health Care Education/Training Program; PCP Internal Medicine; Visit Provider Internal Medicine Medical Oncology | DX: R91.8 Other nonspecific abnormal finding of lung field (principal) | CPT/HCPCS: 99222 ==

== ENCOUNTER → 2024-03-10 13:40 | Outpatient (BNV) | payer MEDICARE, SELFPAY | PROVIDERS: Visit Provider Internal Medicine Medical Oncology | DX: R18.0 Malignant ascites (principal); L27.0 Generalized skin eruption due to drugs and medicaments taken internally | CPT/HCPCS: 99213; 99214 ==

== ENCOUNTER 2024-03-13 10:49 | Outpatient (AMB) | payer MEDICARE, SELFPAY ==
--- NOTE | 2024-03-13 10:50 | A.OFFVIS_ITS ---
Vital Signs 03/13/24 10:52 Height 5 ft 2 in Weight 149 lb 14.629 oz BMI 27.4 Intake Visit Reasons: New Patient - Pulmonary Nodules Visual Display Manager Required: No Allergies Sulfa (Sulfonamide Antibiotics) Allergy (Verified 03/13/24 10:54) Unknown HPI Comments Details: This is a pulmonary evaluation. The pt is an 79-year-old female with a PMH significant for?HTN and HLD who presents to the ED for evaluation of cough, generalized weakness, and anorexia x2 weeks. ?Patient reports symptoms began approximately 2 weeks ago when she developed constant cough that was occasionally productive of whitish sputum. Denies significant SOB or difficulty breathing. No fever or chills. Over the next 2 weeks patient felt progressively weaker and more fatigued. She went to emergency room due to low blood pressure measured at home last night and this morning, as well as respiratory symptoms that have not resolved with more conservative treatment. In the ED, CXR showed multiple pulmonary nodules. CT?of chest personally reviewed by me, showed innumerable pulmonary nodules some of which are cavitary, as well as a large right hilar mass consistent with metastatic disease. Also found moderate ascites with omental carcinomatosis. She underwent a paracenthesis which was undiagnostic. [facility] Medical History (Updated 03/10/24 @ 13:53 by Malachi Pace MD) HLD (hyperlipidemia) HTN (hypertension) Family History (Updated 03/10/24 @ 13:35 by Concha Jeronimo) Mother Ovarian cancer Social History (Updated 03/10/24 @ 13:35 by Concha Jeronimo) Household Members: Family Housing: House Do you presently have visiting nurse or other home services: No Comment: daughter at bedside Patient Tobacco Use Status: Never used Tobacco Advance Directives Date on File: 03/06/24 service: No Review of Systems Const Reports fatigue and Reports weakness Eyes Reports no additional complaints ENT Reports nasal congestion Card Denies chest pain and Reports dyspnea on exertion Resp Reports dyspnea on exertion and Reports wheezing GI Reports bloating Musc Reports myalgias Skin/Breast Denies rash Neuro Reports weakness Endo Reports fatigue Aller/Immun Reports wheezing Physical Exam Vital Signs: BMI result Body Mass Index 27.4 Const General: cooperative and alert Orientation/consciousness: patient oriented x3 Resp Effort & Inspection: normal respiratory effort and able to speak in complete sentences Neuro General: patient oriented x3 Assessment & Plan Assessment & Plan (1) Multiple pulmonary nodules: Code(s): R91.8 - Other nonspecific abnormal finding of lung field Category: Medical Plan Likely metastatic disease I spoke to the patient is she is agreeable to a CT guided biopsy. I spoke to Radiology and we both agreed that her right sided lesions would more appropriate for biopsy. hold aspirin Coding Level of Care Code Tele New Pt Level 5 (31518) Diagnoses Multiple pulmonary nodules R91.8 Time Spent (min) 45
[2024-03-13 10:52] VITALS: BMI 27.4
== END 2024-03-13 11:29 | disposition home or self-care (01) ==
LOC: HO.HPS 10:49
PROVIDERS: PCP Internal Medicine; Referring Provider Internal Medicine; Visit Provider Hospitalist
DX: R91.8 Other nonspecific abnormal finding of lung field (principal)
CPT/HCPCS: 99443

== ENCOUNTER → 2024-03-13 10:49 | Outpatient (BNVA) | payer MEDICARE, SELFPAY | PROVIDERS: PCP Internal Medicine; Referring Provider Internal Medicine; Visit Provider Hospitalist ==

== ENCOUNTER 2024-03-24 06:12 | Day surgery (SDC) | payer MEDICARE, SELFPAY ==
[2024-03-24] VITALS (8 sets, daily range): BP systolic 106–137; BP diastolic 59–82; PULSE 96–107; RESP 16–17; TEMP 36.1–36.8; O2SAT 94–97; BMI 21.2
--- NOTE | ~2024-03-24 | XR_ITS ---
EXAMINATION: XR CHEST CLINICAL INFORMATION: Status post left lung biopsy. COMPARISON: 03/26/2024. TECHNIQUE: Frontal view of the chest was obtained. FINDINGS: Lung volumes are low. There is no gross pneumothorax. Heart size is normal. Redemonstration of innumerable pulmonary nodules, better characterized on chest CT scan. Levoscoliosis of the thoracic spine with multilevel degenerative changes. No gross pleural effusion. XR/XR chest 1V IMPRESSION: 1. Redemonstration of innumerable pulmonary nodules, better characterized on chest CT scan. 2. No gross pneumothorax.
--- NOTE | ~2024-03-24 | CT_ITS ---
79-year-old female with a large pelvic mass and innumerable bilateral lung nodules. Oncology requests a lung biopsy. PROCEDURES: 1. Limited preprocedure CT of the chest. Permanent images saved in PACS. 2. CT-guided biopsy of the left lung nodule. 3. Limited postprocedure CT of the chest. Permanent images saved in PACS. CLINICIANS: Torsten Deleon PA-C MEDICATIONS: -Versed 0.5 mg, Fentanyl 25 mcg, and lidocaine 1% 10 mL SQ -Antibiotics: None -For additional details, please see nursing flowsheet. COMPLICATIONS: None ESTIMATED BLOOD LOSS: < 5 ml CONTRAST: None SPECIMENS: 5 x 20 g cores were sent for pathology MODERATE SEDATION TIME: 24 min PROCEDURE NOTE: The procedure, risks, benefits, and alternatives were carefully explained to the patient and written informed consent was obtained. The patient was placed supine on the CT table. A timeout was performed. A limited CT of the chest was performed to localize a lung nodule and choose appropriate needle entry and trajectory. The pulmonary CT demonstrated an accessible left pleural-based lung nodule. The patient was prepped and draped in usual sterile fashion. The skin and deeper soft tissues were anesthetized with lidocaine. Under CT guidance, a19 gague trocar needle was advanced to the left lung nodule. A 20 gauge biopsy device was inserted through the trocar needle and advanced into the mass. A total of 5 cores were performed. The specimens were placed in formalin and sent to pathology. A total of 5 mL of nonclotted blood was obtained from the patient's IV by the nursing staff. A blood patch was then administered through the trocar needle. The needle was removed. A dry dressing was applied and secured with Tegaderm. A limited postprocedure CT of the chest was performed, which did not demonstrate any pneumothorax or hemothorax. There were no immediate complications. The patient was stable after the procedure and was transferred to the post anesthesia care unit. The procedure was done under moderate sedation with a dedicated nurse for monitoring of vital signs. CT/CT biopsy lung LT Impression: CT-guided left lung nodule biopsy This procedure was performed by Torsten Deleon PA-C and supervised by Dr. Madrigal.
--- NOTE | ~2024-03-24 | XR_ITS ---
EXAMINATION: XR CHEST CLINICAL INFORMATION: Status post left lung biopsy. COMPARISON: 03/26/2024. TECHNIQUE: Frontal view of the chest was obtained. FINDINGS: Lung volumes are low. There is no gross pneumothorax. Heart size is normal. Redemonstration of innumerable pulmonary nodules, better characterized on chest CT scan. Levoscoliosis of the thoracic spine with multilevel degenerative changes. No gross pleural effusion. XR/XR chest 1V IMPRESSION: 1. Redemonstration of innumerable pulmonary nodules, better characterized on chest CT scan. 2. No gross pneumothorax.
[2024-03-24 07:57] LABS: INTERNATIONAL NORM RATIO 1.5 (0.9-1.1); Prothrombin Time 18.2 SEC (11.1-13.3)
--- NOTE | 2024-03-24 08:06 | MHC.SHP ---
Pre-Procedural Eval Section A - 24 Hr Update-Section A only Date of Service: 03/24/24 Section B - Complete if H&P > 30 days Chief Complaint: multiple pulm nodules Details of Present Illness: 79 y/o female with multiple lung nodules concerning for metastases. Unknown primary. Relevant Family History (Specify if Yes): No Relevant Social History: None Present Medications: see Short Stay Collaborative assessment Medical History: No relevant PMH History of Previous Operations: No relevant previous surgery Allergies: Allergies Allergy/AdvReac Type Severity Reaction Status Date / Time clotrimazole Allergy Intermediate Rash Verified 03/17/24 11:27 Sulfa (Sulfonamide Allergy Unknown Verified 03/13/24 10:54 Antibiotics) Review of Systems Sugical H&P ROS: Negative: Constitution, Cardiovascular and Respiratory Exam Surgical H&P Exam: Normal: Heart, Normal: Lungs, Normal: Skin and Normal: Neurological, Not Evaluated: HEENT and Significant Findings: Abdomen (protuberant) Plan CT right lung nodule biopsy Time Spent With Patient Time: Total time managing care of this patient today ____ minutes.
== END 2024-03-24 11:44 | disposition home or self-care (01) ==
LOC: HO.SSS 06:14
PROVIDERS: Physician Assistant Surgical; Radiology Vascular & Interventional Radiology; PCP Internal Medicine; Visit Provider Hospitalist
DX: R91.8 Other nonspecific abnormal finding of lung field (principal); C34.92 Malignant neoplasm of unspecified part of left bronchus or lung; I10 Essential (primary) hypertension; E78.5 Hyperlipidemia, unspecified; C78.6 Secondary malignant neoplasm of retroperitoneum and peritoneum; R18.8 Other ascites; R53.83 Other fatigue; R63.0 Anorexia; Z68.27 Body mass index [BMI] 27.0-27.9, adult; R03.1 Nonspecific low blood-pressure reading; R05.3 Chronic cough; Z79.899 Other long term (current) drug therapy; Z88.2 Allergy status to sulfonamides
CPT/HCPCS: 32408; 36415; 71045; 85610; 85730; 88305; 88341; 88342; 99152; J2250; J2310; J3010

== ENCOUNTER → 2024-03-24 07:40 | Outpatient (BNV) | payer MEDICARE, SELFPAY | PROVIDERS: PCP Internal Medicine; Visit Provider Physician Assistant Surgical | DX: R91.8 Other nonspecific abnormal finding of lung field (principal) | CPT/HCPCS: 32408; 99152 ==

== ENCOUNTER 2024-03-26 16:34 | Inpatient (IN) | payer MEDICARE, SELFPAY ==
--- NOTE | ~2024-03-26 | CT_ITS ---
EXAMINATION: CT ANGIOGRAM OF THE CHEST WITH AND WITHOUT CONTRAST (CT PULMONARY ANGIOGRAM FOR PE) CLINICAL INFORMATION: Reason for Exam hypoxia, tachycardia COMPARISON: CT chest 03/05/2024 TECHNIQUE: Prior to contrast administration, noncontrast localization images were obtained. Subsequently, multidetector volumetric imaging was performed from the thoracic inlet to below the diaphragms following the administration of 65 mL Omnipaque 350 intravenous contrast. No contrast reaction reported Sagittal, coronal, and MIP oblique sagittal reformatted images were obtained on the CT workstation, uploaded to PACS, and reviewed. This CT examination was performed using dose optimization techniques as appropriate, variously including the following: *Automated exposure control *Adjustment of mA and/or kV according to patient size (this includes techniques or standardized protocols for targeted exams where dose is matched to indication/reason for exam; i.e. extremities or head) *Use of iterative reconstruction technique Total exam dose-length product 352 mGy-cm FINDINGS: QUALITY OF STUDY/CONTRAST BOLUS: Satisfactory. PULMONARY ARTERIES: There are moderate-sized predominantly lower lobe pulmonary emboli present. LUNGS: Innumerable pulmonary nodules are again seen scattered throughout the lungs ranging in size from under a centimeter to up to 2.6 cm. The largest lesion has increased in size from 2.0 cm at which time it was cavitary to a more solid-appearing lesion measuring 2.6 cm on the current study with the tiny foci of air within it (6:121 compare prior 5:183). Another lesion in the superior segment of the right lobe of the liver which was abutting the fissure has increased in size from 1.8 cm to 2.4 cm and is no longer cavitary (6:134 compare prior 5:174). No consolidations are seen. Central airways are patent. No significant emphysematous changes are noted. MEDIASTINUM: No significant mediastinal lymphadenopathy is seen. Dense seen is a large right hilar mass more difficult to compare as the prior study was without contrast but it does appear increased in size going from 2.2 cm to 2.8 cm (4:19 compare prior 3:24). An enlarged lymph node at the base of the neck on the left appears about the same measuring 1.2 cm (4:2). CORONARY ARTERY CALCIFICATION: Mild PLEURA: There is a new trace right side pleural effusion. No pleural mass or thickening. AXILLA: No lymphadenopathy. UPPER ABDOMEN: Again seen is ascites which has increased in volume since the prior study. OSSEOUS STRUCTURES: No evidence of bony metastatic disease. CT/CT angio chest PE protocol IMPRESSION: 1. Moderate-sized bilateral pulmonary emboli. 2. Innumerable pulmonary nodules are again seen with some of the larger nodules increasing in size. 3. Right hilar mass appears to have increased in size. 4. New trace right-sided pleural effusion. 5. Increasing ascites. VTE: positive. Fleischner guidelines were followed.
--- NOTE | ~2024-03-26 | XR_ITS ---
EXAMINATION: XR ABDOMEN KUB CLINICAL INDICATION: Abdominal distention and constipation COMPARISON: CT abdomen 03/23/2024 TECHNIQUE: AP view of the abdomen. FINDINGS: No dilated loops of bowel to suggest obstruction. Mild fecal loading. Coarsely calcified focus in the right lower abdomen corresponding to previously identified right adnexal lesion. Degenerative changes of the thoracolumbar lumbosacral spine. Soft tissues are unremarkable. XR/XR KUB IMPRESSION: 1. No dilated loops of bowel to suggest obstruction. 2. Mild fecal loading. 3. Coarsely calcified focus in the right lower abdomen corresponding to previously identified right adnexal lesion.
--- NOTE | ~2024-03-26 | XR_ITS ---
EXAMINATION: XR CHEST CLINICAL INFORMATION: Weakness recent left-sided lung biopsy COMPARISON: CT biopsy from 03/24/2024 TECHNIQUE: Frontal view of the chest was obtained. FINDINGS: Bilateral low lung volumes. Redemonstration of innumerable pulmonary nodules bilaterally, better evaluated on prior cross-sectional imaging. No pneumothorax. Trachea is midline. Cardiac mediastinal silhouette is not enlarged. Aorta demonstrates atherosclerotic calcifications. No large pleural effusion. Slight levocurvature of the thoracolumbar spine with multilevel degenerative changes. Degenerative arthropathy of the bilateral glenohumeral joints. Soft tissues are unremarkable. XR/XR chest 1V IMPRESSION: 1. Bilateral low lung volumes. 2. Redemonstration of innumerable pulmonary nodules bilaterally, better evaluated on prior cross-sectional imaging.
[2024-03-26 16:56] VITALS: BP 129/78; BP 130/80; PULSE 107; PULSE 130; RESP 18; TEMP 36.7; O2SAT 96; BMI 23.8
[2024-03-26 17:02] VITALS: BP 129/78; PULSE 109; RESP 21; TEMP 36.7; O2SAT 95
--- NOTE | 2024-03-26 17:03 | ED_ITS ---
HPI - General Adult General Chief complaint: Weakness Stated complaint: weakness,unable to eat Time Seen by Provider: 03/26/24 17:03 History of Present Illness ED Provider: Sherly SALEH narrative: The patient is an 79-year-old woman who was recently hospitalized for hypercalcemia and dehydration. She was found to have a left adnexal mass and also lung nodules. Apparently a paracentesis was none diagnosis. She was discharged and 2 days ago had an outpatient biopsy of a lung nodule concerning for a metastatic lesion. The biopsy was done 2 days ago as an outpatient. The patient has been living at home with her . She has been quite frail recently despite her recent hospitalization. Apparently she has been quite active and independent until January of this year. She has had a marked decline in her functional status over the last month. Today her was helping her back from the bathroom when she stopped walking. She was holding onto his hands. She said that she felt very weak. She crumpled to the ground and ended up wedged between 2 pieces of furniture. She was not injured in going down. Her could not help her stand up and so called 911 and she was brought to the hospital. Related Data Home Medications ?Medication ?Instructions ?Recorded ?Confirmed No Known Home Meds 03/26/24 03/26/24 Allergies Allergy/AdvReac Type Severity Reaction Status Date / Time clotrimazole Allergy Intermediate Rash Verified 03/26/24 17:00 Sulfa (Sulfonamide Allergy Unknown Verified 03/26/24 17:00 Antibiotics) Review of Systems 2 Review of Systems: Yes all other systems are reviewed and are negative [facility] Past Medical History Medical History (Updated 03/26/24 @ 20:17 by Garcia Dubois MD) Anorexia HLD (hyperlipidemia) HTN (hypertension) Family History Family History (Updated 03/10/24 @ 13:35 by Concha Jeronimo) Mother Ovarian cancer Social History Social History (Updated 03/10/24 @ 13:35 by Concha Jeronimo) Household Members: Family Housing: House Do you presently have visiting nurse or other home services: No Comment: daughter at bedside Patient Tobacco Use Status: Never used Tobacco Smoked in Last 30 Days: No Use of substances other than those prescribed or required for medical reasons: No Advance Directives: Yes Advance Directives on File: Yes Advance Directives Date on File: 06/27/24 Do you have a plan to hurt others: No Plan service: No Physical Exam ED Vital Signs: Vital Signs - 24 hr 03/26/24 16:56 03/26/24 17:02 03/26/24 18:09 Temperature 98.0 F 98.0 F Pulse Rate 107 H 109 H 98 Respiratory Rate 18 21 H 17 Blood Pressure 129/78 129/78 122/70 Pulse Oximetry 96 95 94 Oxygen Delivery Method Room Air Room Air Room Air BMI result Body Mass Index 23.8 Const Other: The patient is awake and alert. She looks quite frail. Her voice is quiet and her mouth seems dry. HENMT Other: Face is symmetrical. Mucous membranes seem dry. Eyes Other: Pupils are round equal, conjunctivae are clear, extraocular movements are intact Neck Neck: Yes no JVD Resp Effort & Inspection: normal respiratory effort Auscultation: clear to auscultation bilaterally Cardio Rate: regular rate Rhythm: regular rhythm Heart sounds: S1 normal heart sound present and S2 normal heart sound present GI Other: The patient's abdomen is protuberant but nontender. Skin Other: Skin is pale and dry Neuro Other: The patient is awake and alert. Speech is quiet but clear. Face is symmetrical. She moves her extremities symmetrically but weakly. Extrem Other: No peripheral edema. Medications Administered Discontinued Medications Generic Name Dose Route Start Last Admin Trade Name Freq PRN Reason Stop Dose Admin Sodium Chloride 1,000 mls @ 999 mls/hr 03/26/24 17:30 03/26/24 19:38 Ns IV 03/26/24 18:30 Infused .Q1H1M BLANK Infusion Sodium Chloride 1,000 mls @ 999 mls/hr 03/26/24 19:29 03/26/24 22:14 Ns IV 03/26/24 20:29 999 mls/hr .Q1H1M STA Administration Medical Decision Making Medical Decision Making MDM Narrative: The patient is an 79-year-old woman who has recently been found to have a significant cancer process at work but her specific diagnosis has not yet been established. She presents today with significant dehydration with hypercalcemia. She was given IV fluids. She will be admitted to the hospitalist service. Lab Data 03/26/24 17:48 03/26/24 17:48 Labs: Lab Results 03/26/24 03/26/24 Range/Units 17:48 20:48 WBC 24.7 H (4.8-10.8) X10*3/uL RBC 5.11 (4.20-5.50) X10*6/uL Hgb 14.1 (12.0-16.0) g/dl Hct 42.9 (37.0-47.0) % MCV 84.0 (80.0-98.0) fL MCH 27.6 (27.0-33.0) pg MCHC 32.9 (31.0-35.0) g/dl RDW 14.0 (11.0-16.0) % Plt Count 333 (160-400) X10*3/uL MPV 10.2 (9.4-12.3) fL Immature Gran % (Auto) 1.3 H (0.0-0.4) % Neut % (Auto) 89.0 H (45-73) % Lymph % (Auto) 3.6 L (20-40) % [place] % (Auto) 5.7 (2-11) % Eos % (Auto) 0.0 (0-4) % Baso % (Auto) 0.4 (0-2) % Lymph # (Auto) 0.9 L (1.2-4.9) X10*3/uL [place] # (Auto) 1.4 H (0.1-1.2) X10*3/uL Eos # (Auto) 0.0 (0.0-0.4) X10*3/uL Baso # (Auto) 0.1 (0.0-0.2) X10*3/uL Abs Immat Gran (auto) 0.31 H (0.00-0.03) X10*3/uL Absolute Neuts (auto) 22.0 H (2.0-8.3) x10*3/uL Absolute Nucleated RBC 0.000 (0.0-0.012) X10*3/uL Nucleated RBC % (auto) 0.0 (0.0-0.2) /100WBC Smear Tech's Comments VERIFIED Sodium 138 (135-145) mmol/L Potassium 4.2 (3.3-5.1) mmol/L Chloride 102 (96-108) mmol/L Carbon Dioxide 22 (22-29) mmol/L Anion Gap 18 (12-20) BUN 34 H (9-16) mg/dL Creatinine 0.90 (0.5-1.4) mg/dL Estim Creat Clear Calc 39.4 Estimated GFR > 60 Random Glucose 121 H (60-115) mg/dL Calcium 13.4 H* D 12.1 H D (8.4-10.2) mg/dL Magnesium 1.7 (1.6-2.6) mg/dL Total Bilirubin 0.7 (0.0-1.0) mg/dL Direct Bilirubin 0.3 (0.0-0.5) mg/dL AST 24 (5-31) U/L ALT 14 (0-31) U/L Alkaline Phosphatase 140 H (39-117) U/L Total Protein 6.7 (6.5-8.0) g/dL Albumin 3.1 L (3.5-5.0) g/dL Influenza Type A (PCR) NEGATIVE (Negative) Influenza Type B (PCR) NEGATIVE (Negative) RSV RNA Qual (PCR) NEGATIVE (Negative) SARS-CoV-2 RNA (RT-PCR) NEGATIVE (Negative) Discharge Plan Discharge Clinical Impression: Hypercalcemia, Dehydration Patient Disposition: Admitted As Inpatient
--- NOTE | 2024-03-26 17:05 | PC.NURSE ---
Pt. on ice grinder at this time.
--- NOTE | 2024-03-26 17:18 | ECG_ITS ---
Test Reason : FALL Blood Pressure : / mmHG Vent. Rate : 104 BPM Atrial Rate : 104 BPM P-R Int : 146 ms QRS Dur : 126 ms QT Int : 350 ms P-R-T Axes : 051 -60 083 degrees QTc Int : 460 ms Sinus tachycardia Right bundle branch block Left anterior fascicular block Bifascicular block Left ventricular hypertrophy with repolarization abnormality ( R in aVL ) Abnormal ECG No previous ECGs available Referred By: Garcia Dubois Electronically Signed By:LIZZETTE WEISS MD
[2024-03-26 18:07] LABS: Basophils Absolute Auto 0.1 X10*3/uL (0.0-0.2); Basophils Percent Auto 0.4 % (0-2); Hematocrit 42.9 % (37.0-47.0); Hemoglobin 14.1 g/dl (12.0-16.0); Imm Gran Abs Auto 0.31 X10*3/uL (0.00-0.03); Imm Gran Pct Auto 1.3 % (0.0-0.4); Lymphocytes Absolute Auto 0.9 X10*3/uL (1.2-4.9); Lymphocytes Percent Auto 3.6 % (20-40); MANUAL DIFF FLAG SCAN; Mean Corpuscular HGB Conc 32.9 g/dl (31.0-35.0); Mean Corpuscular Hemoglobin 27.6 pg (27.0-33.0); Mean Platelet Volume 10.2 fL (9.4-12.3); Monocytes Absolute Auto 1.4 X10*3/uL (0.1-1.2); Monocytes Percent Auto 5.7 % (2-11); Platelet Count 333 X10*3/uL (160-400); Red Blood Count 5.11 X10*6/uL (4.20-5.50); SCAN SMEAR FLAG 1; White Blood Count 24.7 X10*3/uL (4.8-10.8)
[2024-03-26 18:09] VITALS: BP 122/70; PULSE 98; RESP 17; O2SAT 94
[2024-03-26 18:13] LABS: Alanine Aminotransferase 14 U/L (0-31); Albumin Level 3.1 g/dL (3.5-5.0); Alkaline Phosphatase 140 U/L (39-117); Anion Gap 18 (12-20); Aspartate Amino Transferase 24 U/L (5-31); Bilirubin Direct 0.3 mg/dL (0.0-0.5); Bilirubin Total 0.7 mg/dL (0.0-1.0); Blood Urea Nitrogen 34 mg/dL (9-16); Calcium 13.4 mg/dL (8.4-10.2); Carbon Dioxide 22 mmol/L (22-29); Chloride 102 mmol/L (96-108); Creatinine Clr Calc Pharmacy 39.4; Estimated Glomerular Filt Rate > 60; Glucose Random 121 mg/dL (60-115); Magnesium 1.7 mg/dL (1.6-2.6); Potassium 4.2 mmol/L (3.3-5.1); Sodium 138 mmol/L (135-145); Total Protein 6.7 g/dL (6.5-8.0)
[2024-03-26 18:29] LABS: SLIDE REVIEW VERIFIED
[2024-03-26] MEDS: 0.9 % Sodium Chloride 1,000 ML 999 ML IV ×2 (18:37→22:14)
[2024-03-26 18:41] LABS: Influenza A PCR NEGATIVE (Negative); Influenza B PCR NEGATIVE (Negative); Resp Syncy Virus RNA Qual PCR NEGATIVE (Negative); SARS COV2 PCR INHOUSE NEGATIVE (Negative)
--- NOTE | 2024-03-26 20:14 | ECG_ITS ---
Test Reason : REPEAT WEAKNESS Blood Pressure : / mmHG Vent. Rate : 125 BPM Atrial Rate : 125 BPM P-R Int : 176 ms QRS Dur : 124 ms QT Int : 334 ms P-R-T Axes : 000 -61 088 degrees QTc Int : 482 ms Sinus tachycardia Right bundle branch block Left anterior fascicular block Bifascicular block Left ventricular hypertrophy with repolarization abnormality ( R in aVL ) Abnormal ECG When compared with ECG of 26-MAR-2024 17:34, No significant change was found Referred By: Garcia Dubois Electronically Signed By:LIZZETTE WEISS MD
--- NOTE | 2024-03-26 21:01 | P.HPHOSP_ITS ---
History of Present Illness Date of Service: 03/26/24 Attending physician on admission: Gurmeet Martino Chief Complaint: Genearlized weakness Pt is an 79-year-old female with a PMH significant for?HTN and HLD who presents to the ED for evaluation of worsening generalized weakness and inability to walk since this morning. Patient was recently admitted to the hospital on 03/05-03/07 for hypercalcemia of 14.9 after presenting with loss of appetite and generalized weakness. Workup at that time showed large 22 cm heterogeneous attenuation left adnexal mass, highly suspicious for primary ovarian neoplasm, with evidence of metastasis to omentum/peritoneum, numerous pulmonary nodules, and large right hilar mass. Pt underwent CT-guided lung biopsy two days ago in short term stay surgery. Since then daughter reports pt has seemingly been progressively weak, though she has not been eating or drinking much the past few weeks. Earlier this morning pt was being helped to the bathroom by her when she found herself weak and unable to move. lowered her to the floor but then could not stand her up again so called EMS for assistance. Pt's only complaint is of generalized weakness. Denies lightheadedness or dizziness. No chest pain/pressure or palpitations. Denies abdominal pain. No N/V/D. Denies changes to bowel or bladder habits. No SOB or difficulty breathing. In the ED pt was tachycardic up to 130s and tachypnic to 21. Labs were significant for leukocytosis of 24.7, BUN 34, calcium 13.4, and albumin 3.1. CXR showed redemonstration of innumerable pulmonary nodules bilaterally. Initial EKG demonstrated sinus tachycardia with RBBB and left anterior fascicular block without evidence of significant ischemia. Pt was treated with 1L IVF. Pt will be admitted to the hospital for treatment and further evaluation of hypercalcemia and generalized weakness in the setting of likely metastatic ovarian cancer. Review of Systems 2 Review of Systems: Generalized weakness Reduced p.o. intake Chronic SOB around baseline Denies chest pain/pressure, palpitations No fever, chills, N/V/D, or abdominal pain [facility] Medical History Anorexia HLD (hyperlipidemia) HTN (hypertension) Family History Mother Ovarian cancer Social History Household Members: Family Housing: House Do you presently have visiting nurse or other home services: No Comment: daughter at bedside Patient Tobacco Use Status: Never used Tobacco Smoked in Last 30 Days: No Use of substances other than those prescribed or required for medical reasons: No Advance Directives: Yes Advance Directives on File: Yes Advance Directives Date on File: 03/26/24 Do you have a plan to hurt others: No Plan service: No Meds Allergies Allergy/AdvReac Type Severity Reaction Status Date / Time clotrimazole Allergy Intermediate Rash Verified 03/26/24 17:00 Sulfa (Sulfonamide Allergy Unknown Verified 03/26/24 17:00 Antibiotics) Home Medications ?Medication ?Instructions ?Recorded ?Confirmed ?Last Taken ?Type No Known Home Meds 03/26/24 03/26/24 Unknown History Physical Exam 2 Vital Signs and Narrative: Vital Signs: Last Vital Signs Temp 98.0 F 03/26/24 17:02 Pulse 98 03/26/24 18:09 Resp 17 03/26/24 18:09 BP 122/70 03/26/24 18:09 Pulse Ox 94 03/26/24 18:09 O2 Del Method Room Air 03/26/24 18:09 BMI result Body Mass Index 23.8 General: AOx3, no acute distress Resp: CTA bilaterally CVS: S1, S2, regular rhythm, tachycardic GI: +BS, NT, mildly distended Skin: Warm, dry Neuro: Cranial nerves II-XII grossly intact bilaterally. Motor grossly intact bilaterally. Global weakness noted, especially in lower legs bilaterally Extremities: No edema Psych: Appropriate affect Results Labs 03/26/24 17:48 03/26/24 17:48 Labs: Laboratory Results - last 24 hr 03/26/24 17:48 MCV 84.0 MCH 27.6 MCHC 32.9 RDW 14.0 Plt Count 333 MPV 10.2 Immature Gran % (Auto) 1.3 H Neut % (Auto) 89.0 H Lymph % (Auto) 3.6 L [place] % (Auto) 5.7 Eos % (Auto) 0.0 Baso % (Auto) 0.4 Lymph # (Auto) 0.9 L [place] # (Auto) 1.4 H Eos # (Auto) 0.0 Baso # (Auto) 0.1 Abs Immat Gran (auto) 0.31 H Absolute Neuts (auto) 22.0 H Absolute Nucleated RBC 0.000 Nucleated RBC % (auto) 0.0 Smear Tech's Comments VERIFIED Anion Gap 18 Estim Creat Clear Calc 39.4 Estimated GFR > 60 Random Glucose 121 H Calcium 13.4 H* D Magnesium 1.7 Total Bilirubin 0.7 Direct Bilirubin 0.3 AST 24 ALT 14 Alkaline Phosphatase 140 H Total Protein 6.7 Albumin 3.1 L Influenza Type A (PCR) NEGATIVE Influenza Type B (PCR) NEGATIVE RSV RNA Qual (PCR) NEGATIVE SARS-CoV-2 RNA (RT-PCR) NEGATIVE Imaging Radiologist's Impressions: Impressions Chest X-Ray 03/26/24 17:27 IMPRESSION: 1. Bilateral low lung volumes. 2. Redemonstration of innumerable pulmonary nodules bilaterally, better evaluated on prior cross-sectional imaging. Assessment and Plan (1) Hypercalcemia: Status: Acute Plan Pt is an 79-year-old female with a PMH significant for?HTN and HLD who presents to the ED for evaluation of worsening generalized weakness and inability to walk since this morning. Pt will be admitted to the hospital for treatment and further evaluation of hypercalcemia and generalized weakness in the setting of likely metastatic ovarian cancer. Hypercalcemia Corrected calcium Likely secondary to primary ovarian carcinoma with metastasis to liver and lungs Pt given 1L IVF in the ED Will give additional 1L IVF and place on maintenance fluids Hold on bisphosphonates until oncology input Oncology consult Follow BMP Monitor on telemetry Leukocytosis Likely secondary to metastatic disease No evidence of acute infection, no evidence of sepsis No indication for antibiotics at this time Generalized weakness In the setting of above Pt with reduced p.o. intake Nutrition consult PT evaluation HTN Pt apparently no longer taking previous home meds HLD Pt apparently no longer taking previous home meds Full Code Attending:?Dr. Payan DVT Prophylaxis: Lovenox Pt will require a hospitalization of at least two nights for treatment and further evaluation of hypercalcemia and generalized weakness in the setting of likely metastatic ovarian cancer. Quality Stroke Does the patient have a stroke diagnosis?: No VTE Prior VTE?: No VTE Risk Level:: Medical - moderate - high VTE Device Contraindication: Treatment Not Indicated VTE Drug Contraindication: N/A - Med Ordered
[2024-03-26 21:03] LABS: Calcium 12.1 mg/dL (8.4-10.2)
[2024-03-26 21:40] VITALS: BP 132/77; PULSE 100; RESP 18; TEMP 36.6; O2SAT 96
--- NOTE | 2024-03-26 21:59 | PHA.MEDREC ---
Pharmacy Consult ? Medication Reconciliation Pharmacy has completed the medication reconciliation. Confrimed medications with patient and patients daughter at bedside. Her daughter and patient stated that she was no longer taking any at home medications since before her first hospitalization earlier this month. When she was here in the beginning of the month I did her med rec and her daughter confirmed meds originally on her list that she was taking. But according to the daughter those have been since stopped due to her not feeling well and nauseated more recently.
[2024-03-27] VITALS (9 sets, daily range): BP systolic 118–143; BP diastolic 56–81; PULSE 54–102; RESP 16–24; TEMP 36.2–37.2; O2SAT 92–99; BMI 23.8
[2024-03-27] MEDS: Enoxaparin Sodium 40 MG/0.4 ML SYRINGE SUBCUT ×2 (01:30→22:41)
[2024-03-27] MEDS: 0.9 % Sodium Chloride 1,000 ML 100 ML IVCONT ×3 (01:32→22:42)
[2024-03-27] MEDS: 0.9 % Sodium Chloride Flush 3 ML SYRINGE IVFLUSH (01:40)
[2024-03-27 06:29] LABS: Hematocrit 42.6 % (37.0-47.0); Hemoglobin 13.7 g/dl (12.0-16.0); Mean Corpuscular HGB Conc 32.2 g/dl (31.0-35.0); Mean Corpuscular Hemoglobin 27.4 pg (27.0-33.0); Mean Corpuscular Volume 85.2 fL (80.0-98.0); Mean Platelet Volume 10.4 fL (9.4-12.3); Platelet Count 282 X10*3/uL (160-400); Red Cell Distribution Width 14.3 % (11.0-16.0); White Blood Count 22.5 X10*3/uL (4.8-10.8)
[2024-03-27 06:55] LABS: Anion Gap 18 (12-20); Blood Urea Nitrogen 30 mg/dL (9-16); Calcium 12.5 mg/dL (8.4-10.2); Carbon Dioxide 18 mmol/L (22-29); Chloride 108 mmol/L (96-108); Creatinine Clr Calc Pharmacy 46.1; Estimated Glomerular Filt Rate > 60; Glucose Random 97 mg/dL (60-115); Potassium 3.9 mmol/L (3.3-5.1); Sodium 140 mmol/L (135-145)
--- NOTE | 2024-03-27 08:46 | P.CNHO_ITS ---
Subjective - Subjective Chief complaint: Consult for: Generalized weakness Patient: known to practice within the last 3 years Consult date: 03/27/24 Requesting Physician: David. 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 HYPERCALCEMIA. HPI - Consult Narrative Reason for consult: Consult for: Lung metastases, ovarian cancer. Narrative: Heavenly Hartman is a 79 year old lady, who presented to the ED for evaluation of worsening generalized weakness and inability to walk since yesterday morning. Patient was recently admitted to the hospital on 03/05-03/07 for hypercalcemia of 14.9 after presenting with loss of appetite and generalized weakness. Workup at that time showed a large, 22 cm heterogeneous attenuation left adnexal mass, highly suspicious for primary ovarian neoplasm, with evidence of metastasis to omentum/peritoneum, numerous pulmonary nodules, and large right hilar mass. Pt underwent CT-guided lung biopsy two days ago. Since then shet has seemingly been progressively weak, though she has not been eating or drinking much the past few weeks. Yesterday morning pt was being helped to the bathroom by her when he found her to be weak and unable to move. lowered her to the floor but then could not stand her up again so called EMS for assistance. Pt's only complaint is of generalized weakness. Denies lightheadedness or dizziness. No chest pain/pressure or palpitations. Denies abdominal pain. No N/V/D. Denies changes to bowel or bladder habits. No SOB or difficulty breathing. In the ED pt was tachycardic up to 130s and tachypnic to 21. Labs were significant for leukocytosis of 24.7, BUN 34, calcium 13.4, and albumin 3.1. CXR showed redemonstration of innumerable pulmonary nodules bilaterally. Initial EKG demonstrated sinus tachycardia with RBBB and left anterior fascicular block without evidence of significant ischemia. Pt was treated with 1L IVF. Pt was admitted to the hospital for treatment and further evaluation of hypercalcemia and generalized weakness in the setting of likely metastatic ovarian cancer. Review of Systems: She is not doing too well. She has been rather fatigued lately. No fever/chills. She has lost her apetite. She does not have a good taste. Has lost more weight. No SANDY. Has been dizzy. Has had cough and congestion, recently. C/O abdominal pain. Has nausea. Had a bout with vomiting, today, while trying to drink the Nystatin for oral thrush. She has been rather constipated. No dysuria/hematuria. Has arthritis of her knees. Has generalized weakness. Has felt depressed. Has felt pruritis. 2 Review of Systems: Generalized weakness Reduced p.o. intake Chronic SOB around baseline Denies chest pain/pressure, palpitations No fever, chills, N/V/D, or abdominal pain [facility] Medical History: HTN and HLD Anorexia HLD (hyperlipidemia) HTN (hypertension) Family History: Mother Ovarian cancer Mom of Ovarian Cancer. Social History: She worked at [employer]. She did [employer]. She is . Has 2 kids. Denies smoking. Drinks infrequently. Household Members: Family Housing: House Do you presently have visiting nurse or other home services: No Comment: daughter at bedside Patient Tobacco Use Status: Never used Tobacco [facility] Medical History: Medical History (Last Reviewed 03/27/24 @ 02:42 by NICOLASA Thorpe) Anorexia HLD (hyperlipidemia) HTN (hypertension) Family History: Family History (Last Reviewed 03/27/24 @ 02:42 by NICOLASA Thorpe) Mother Ovarian cancer Surgical History: Surgical History (Last Updated 03/27/24 @ 08:34 by Dena Fall PA-C) History of lung biopsy Social History: Social History (Last Reviewed 03/27/24 @ 02:42 by NICOLASA Thorpe) Living Situation History: Household Members: Family Housing: House Do you presently have visiting nurse or other home services: No Tobacco History: Patient Tobacco Use Status: Never used Tobacco Advance Directives: Advance Directives Date on File: 03/26/24 Occupation Assessmet: service: No Home Medications and Allergies Current Medications: Current Medications Acetaminophen (Acetaminophen 325 Mg Tablet) 650 mg PO Q6H PRN PRN Reason: Pain, Mild (Pain Scale 1-3), fever or headache Benzonatate (Benzonatate 100 Mg Capsule) 100 mg PO TID PRN PRN Reason: Cough Calcium Carbonate (Calcium Carbonate 750 Mg Tab.Chew) 750 mg PO Q4H PRN PRN Reason: Heartburn Enoxaparin Sodium (Enoxaparin Sodium 40 Mg/0.4 Ml Syringe) 40 mg SUBCUT Q24H [facility] Last Admin: 03/27/24 01:30 Dose: 40 mg Sodium Chloride (Ns) 1,000 mls @ 100 mls/hr IVCONT .Q10H [facility] Last Admin: 03/27/24 01:32 Dose: 100 mls/hr Melatonin (Melatonin 3 Mg Tablet) 6 mg PO BEDTIME PRN PRN Reason: Insomnia Ondansetron HCl (Ondansetron Hcl 4 Mg/2 Ml Vial) 4 mg IVPUSH Q8H PRN PRN Reason: Nausea and Vomiting Polyethylene Glycol (Polyethylene Glycol 3350 17 Gm Powd.Pack) 17 gm PO DAILY PRN PRN Reason: Constipation Sodium Chloride (0.9 % Sodium Chloride Flush 3 Ml Syringe) 3 ml IVFLUSH QSHIFT [facility] Last Admin: 03/27/24 08:41 Dose: Not Given Allergies Allergy/AdvReac Type Severity Reaction Status Date / Time clotrimazole Allergy Intermediate Rash Verified 03/26/24 17:00 Sulfa (Sulfonamide Allergy Unknown Verified 03/26/24 17:00 Antibiotics) Physical Exam Vital signs: Vital Signs Temp 97.7 F 03/27/24 06:51 Pulse 99 03/27/24 06:51 Resp 18 03/27/24 06:51 BP 138/80 03/27/24 06:51 Pulse Ox 99 03/27/24 06:51 O2 Del Method Room Air 03/27/24 06:51 Intake & Output 03/26/24 03/27/24 03/27/24 18:59 06:59 18:59 Intake Total 1999 Balance 1999 Intake: Intake, IV Amount 1999 0.9 % Sodium Chloride 1,000 ml 1999 @ 999 mls/hr IV .Q1H1M ST[facility] Rx#: [id number] Other: Weight 58.967 kg Weight 58.967 kg - Constitutional Present: moderate distress - Routine HEENT Exam Head: Present: normal inspection, normocephalic Eye: Present: normal appearance ENT: Present: mucous membranes moist - Routine Neck Exam Present: supple Hem/Onc Consult Result - Labs CBC & Chem 7: 03/27/24 05:55 03/30/24 06:18 Labs: Short CBC 03/26/24 03/27/24 Range/Units 17:48 05:55 WBC 24.7 H 22.5 H (4.8-10.8) X10*3/uL Hgb 14.1 13.7 (12.0-16.0) g/dl Hct 42.9 42.6 (37.0-47.0) % Plt Count 333 282 (160-400) X10*3/uL BMP 03/26/24 03/26/24 03/27/24 17:48 20:48 05:55 Sodium 138 140 Potassium 4.2 3.9 Chloride 102 108 Carbon Dioxide 22 18 L BUN 34 H 30 H Creatinine 0.90 0.77 Calcium 13.4 H* D 12.1 H D 12.5 H* Liver Function 03/26/24 Range/Units 17:48 Total Bilirubin 0.7 (0.0-1.0) mg/dL Direct Bilirubin 0.3 (0.0-0.5) mg/dL AST 24 (5-31) U/L ALT 14 (0-31) U/L Alkaline Phosphatase 140 H (39-117) U/L Albumin 3.1 L (3.5-5.0) g/dL Assessment and Plan Patient Active problem list reviewed?: Yes (1) Malignant ascites Status: Acute Assessment and plan: 79-year-old lady, she was in house back on March 09. She was noted to have hypercalcemia. Patient received pamidronate. CT scan of the chest revealed: 1. Innumerable pulmonary nodules some of which are cavitary. There is a large right hilar mass. Findings are most consistent with metastatic disease. 2. Abnormal gallbladder with calcifications and possible gallstones. A gallbladder mass cannot be excluded. Ultrasound of the gallbladder may be helpful. A paracentesis could be performed at that time for diagnosis. 3. Moderate ascites with omental carcinomatosis. 4. Fluid density in the renal pelves bilaterally which I suspect is parapelvic cysts but hydronephrosis cannot be excluded. Ultrasound of the abdomen from 03/06 revealed: Significantly limited evaluation due to bowel gas and ascites. Calcified gallstone versus calcified mass in the gallbladder is not well evaluated. Recommend further evaluation with CT of the abdomen without and with intravenous contrast. Question mild hydronephrosis. CT scan of the abdomen from 03/07 revealed: 1. Large, 22 cm heterogeneous attenuation left adnexal mass, highly suspicious for primary ovarian neoplasm, with evidence of omental/peritoneal carcinomatosis, and bilateral pelvic chilo disease. Extensive pulmonary and thoracic chilo disease better assessed on recent prior CT chest. 2. Mild left greater than right hydroureteronephrosis to the level of the pelvic inlet where the ureters course adjacent to the dominant left adnexal mass, likely relates to mass effect given size of pelvic mass, though direct ureteral involvement could appear similar. 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 No suspicious gall bladder lesions identified. Meanwhile baseline tumor markers: CEA: 144, CA 125: 92. and CA 19-9: <3. 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 She had a diagnostic paracentesis. Cytology appeared to be nondiagnostic. She underwent biopsy of the lung nodule on 03/24. Preliminary results: Poorly-differentiated adenocarcinoma. Further molecular testing is in progress. She now presents with generalized weakness and failure to thrive. Calcium is up to 13.4. I shared the results with her, her and daughter. They need time to process information. PLAN: For now she will receive Zometa for hypercalcemia. Will request PT, for reconditioning. She was prescribed Zofran for nausea. Switched over to Diflucan for oral yeast infection. She has been started on Megace. She will try Ensure supplements. Further plan will depend upon the final pathological diagnosis. For now they are considering all options. Would like an informational visit from hospice. Will set that up upon Saturday. Thanks, CC: Dr. Hernandez. Dr. Mcintosh. - Time Spent With Patient Time Spent with Patient (in minutes): 25
--- NOTE | 2024-03-27 10:42 | P.PNIM_ITS ---
Subjective Subjective Date of Service: 03/27/24 Interval History: seen and examined son is bedside pt reports feeling improved compared to yesterday but still weak Physical Exam 2 Vital Signs: Vital Signs: Last Vital Signs Temp 97.9 F 03/27/24 08:00 Pulse 102 H 03/27/24 08:00 Resp 18 03/27/24 08:00 BP 136/81 03/27/24 08:00 Pulse Ox 92 03/27/24 08:00 O2 Del Method Room Air 03/27/24 08:00 BMI result Body Mass Index 23.8 Const: Other: General - frail appearing Cardiovascular - regular rate and rhythm, S1-S2 Lungs - normal respiratory effort, clear to auscultation bilaterally, no wheezing Abdomen - soft, nontender, no rebound or guarding Extremities - no edema bilaterally Neuro - awake and alert, no focal deficits Objective Data Active Medications Acetaminophen (Acetaminophen 325 Mg Tablet) 650 mg PO Q6H PRN PRN Reason: Pain, Mild (Pain Scale 1-3), fever or headache Benzonatate (Benzonatate 100 Mg Capsule) 100 mg PO TID PRN PRN Reason: Cough Calcium Carbonate (Calcium Carbonate 750 Mg Tab.Chew) 750 mg PO Q4H PRN PRN Reason: Heartburn Enoxaparin Sodium (Enoxaparin Sodium 40 Mg/0.4 Ml Syringe) 40 mg SUBCUT Q24H [facility] Last Admin: 03/27/24 01:30 Dose: 40 mg Documented By: MARJORIE Sodium Chloride (Ns) 1,000 mls @ 100 mls/hr IVCONT .Q10H [facility] Last Admin: 03/27/24 01:32 Dose: 100 mls/hr Documented By: MARJORIE Melatonin (Melatonin 3 Mg Tablet) 6 mg PO BEDTIME PRN PRN Reason: Insomnia Ondansetron HCl (Ondansetron Hcl 4 Mg/2 Ml Vial) 4 mg IVPUSH Q8H PRN PRN Reason: Nausea and Vomiting Polyethylene Glycol (Polyethylene Glycol 3350 17 Gm Powd.Pack) 17 gm PO DAILY PRN PRN Reason: Constipation Sodium Chloride (0.9 % Sodium Chloride Flush 3 Ml Syringe) 3 ml IVFLUSH QSHIFT [facility] Last Admin: 03/27/24 09:40 Dose: Not Given Documented By: KENY Non-Admin Reason: No Access Labs 03/27/24 05:55 06/28/24 05:55 Labs: Laboratory Results - last 24 hr 03/26/24 03/26/24 03/27/24 17:48 20:48 05:55 MCV 84.0 85.2 MCH 27.6 27.4 MCHC 32.9 32.2 RDW 14.0 14.3 Plt Count 333 282 MPV 10.2 10.4 Immature Gran % (Auto) 1.3 H Neut % (Auto) 89.0 H Lymph % (Auto) 3.6 L [place] % (Auto) 5.7 Eos % (Auto) 0.0 Baso % (Auto) 0.4 Lymph # (Auto) 0.9 L [place] # (Auto) 1.4 H Eos # (Auto) 0.0 Baso # (Auto) 0.1 Abs Immat Gran (auto) 0.31 H Absolute Neuts (auto) 22.0 H Absolute Nucleated RBC 0.000 0.000 Nucleated RBC % (auto) 0.0 0.0 Smear Tech's Comments VERIFIED Anion Gap 18 18 Estim Creat Clear Calc 39.4 46.1 Estimated GFR > 60 > 60 Random Glucose 121 H 97 Calcium 13.4 H* D 12.1 H D 12.5 H* Magnesium 1.7 Total Bilirubin 0.7 Direct Bilirubin 0.3 AST 24 ALT 14 Alkaline Phosphatase 140 H Total Protein 6.7 Albumin 3.1 L Influenza Type A (PCR) NEGATIVE Influenza Type B (PCR) NEGATIVE RSV RNA Qual (PCR) NEGATIVE SARS-CoV-2 RNA (RT-PCR) NEGATIVE Assessment and Plan (1) Hypercalcemia: Status: Acute Plan Pt is an 79-year-old female with a PMH significant for?HTN and HLD who presents to the ED for evaluation of worsening generalized weakness and inability to walk since this morning. Pt will be admitted to the hospital for treatment and further evaluation of hypercalcemia and generalized weakness in the setting of likely metastatic ovarian cancer. 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 Pace -- will give zometa x 1 now Leukocytosis likely reactive No evidence of acute infection, no evidence of sepsis No indication for antibiotics at this time Generalized weakness In the setting of above Pt with reduced p.o. intake Nutrition consult PT evaluation HTN Pt apparently no longer taking previous home meds HLD Pt apparently no longer taking previous home meds Full Code DVT pptx -- lovenox Requires on going hospitalizatoin for treatment of hypercalcemia Quality Stroke Does the patient have a stroke diagnosis?: No VTE Prior VTE?: No VTE Risk Level:: Medical - moderate - high VTE Device Contraindication: Treatment Not Indicated VTE Drug Contraindication: N/A - Med Ordered
--- NOTE | 2024-03-27 12:20 | MHC.CLN ---
RE: CONSULT PT IS MODERATELY MALNOURISHED-NONSEVERE MALNUTRITION IN THE CONTEXT OF ACUTE ILLNESS PT WITH MILDLY DEPLETED SUBCUTANEOUS FAT AND MUSCLE MASS WITH 13% SIGNIFICANT WT LOSS X 3 WEEKS WITH POOR PO X 3 WEEKS. PT'S PREVIOUS WT 03/05/24 68KG-FAMILY REPORTS PT WITH POOR APPETITE X A FEW WEEKS DIET RX: REGULAR-APPROPRIATE RECOMMEND D/C ENSURE CLEAR TID RECOMMEND START ENSURE TID TO PROVIDE 1050KCALS, 60G PROTEIN IN ADDITION, WILL ADD MAGIC CUP WITH MEAL TRAYS TO PROVIDE 870KCALS, 27G PROTEIN MD CAN CONSIDER APPETITE STIMULANT SECONDARY TO DX CA MONITOR PO INTAKE AND ENCOURAGE SUPPLEMENTS DAILY WTS R/T DX MALNUTRITION SEE ALSO FULL CLINICAL NUTRITION ASSESSMENT
--- NOTE | 2024-03-27 12:48 | MHC.CM.PN ---
Addendum entered by Marixa Bowers 03/27/24 13:12: Pt was DC'd from this hosp on 03/07/24, referred to [facility], pt then cancelled this service once she was at home. Original Note: IMM 03/27/24, Pt lives with family, no home health services. She has a walker and shower chair for DME. HCP is on file and confirmed, names Yaneth. PCP is confirmed: Dr. Mcintosh. Transportation home at DC via family. DCP: home with services. CM to follow for DC needs.
[2024-03-28] VITALS (7 sets, daily range): BP systolic 133–147; BP diastolic 60–88; PULSE 91–100; RESP 16–18; TEMP 36.1–36.4; O2SAT 94–99; BMI 30.4
[2024-03-28 06:47] LABS: Alanine Aminotransferase 13 U/L (0-31); Albumin Level 2.7 g/dL (3.5-5.0); Alkaline Phosphatase 126 U/L (39-117); Anion Gap 13 (12-20); Aspartate Amino Transferase 24 U/L (5-31); Bilirubin Total 0.6 mg/dL (0.0-1.0); Blood Urea Nitrogen 27 mg/dL (9-16); Calcium 12.5 mg/dL (8.4-10.2); Carbon Dioxide 20 mmol/L (22-29); Chloride 111 mmol/L (96-108); Creatinine Clr Calc Pharmacy 50.7; Estimated Glomerular Filt Rate > 60; Glucose Random 96 mg/dL (60-115); Potassium 3.7 mmol/L (3.3-5.1); Sodium 140 mmol/L (135-145); Total Protein 5.8 g/dL (6.5-8.0)
--- NOTE | 2024-03-28 07:39 | HO.PM.IMPN ---
Subjective Subjective Date of Service: 03/28/24 Interval History: seen in follow up for malignant hypercalcemia interval history pt weak, not tolerating much po, denies pain to me, but son reports was complaining of generalized discomfort Review of Systems Review of Systems: Yes all other systems are reviewed and are negative Physical Exam Vital Signs: Vital Signs: Last Vital Signs Temp 97 F 03/28/24 04:00 Pulse 92 03/28/24 04:00 Resp 16 03/28/24 04:00 BP 138/60 03/28/24 04:00 Pulse Ox 95 03/28/24 04:00 O2 Del Method Room Air 03/28/24 04:00 BMI result Body Mass Index 30.4 Constitutional - Awake and Alert, No apparent distress Eyes - PERRLA, EOMI Cardiovascular - S1S2, RRR, No edema Respiratory - Normal lung expansion, Normal respiratory effort, No respiratory distress, CTA bilaterally Gastrointestinal - softly distended, nttp, +BS; No rebound or guarding Extremities - no calf tenderness bilaterally, no swelling Skin - Warm/Dry Neurological - Alert & oriented to self only Objective Data Active Medications Acetaminophen (Acetaminophen 325 Mg Tablet) 650 mg PO Q6H PRN PRN Reason: Pain, Mild (Pain Scale 1-3), fever or headache Benzonatate (Benzonatate 100 Mg Capsule) 100 mg PO TID PRN PRN Reason: Cough Enoxaparin Sodium (Enoxaparin Sodium 40 Mg/0.4 Ml Syringe) 40 mg SUBCUT Q24H [facility] Last Admin: 03/27/24 22:41 Dose: 40 mg Documented By: TONO Sodium Chloride (Ns) 1,000 mls @ 100 mls/hr IVCONT .Q10H [facility] Last Infusion: 03/28/24 07:23 Dose: 0 mls/hr Documented By: HANG Melatonin (Melatonin 3 Mg Tablet) 6 mg PO BEDTIME PRN PRN Reason: Insomnia Ondansetron HCl (Ondansetron Hcl 4 Mg/2 Ml Vial) 4 mg IVPUSH Q8H PRN PRN Reason: Nausea and Vomiting Polyethylene Glycol (Polyethylene Glycol 3350 17 Gm Powd.Pack) 17 gm PO DAILY PRN PRN Reason: Constipation Sodium Chloride (0.9 % Sodium Chloride Flush 3 Ml Syringe) 3 ml IVFLUSH QSHIFT [facility] Last Admin: 03/27/24 23:59 Dose: Not Given Documented By: WALKER Non-Admin Reason: IV Running Labs 03/27/24 05:55 03/28/24 06:06 Labs: Laboratory Results - last 24 hr 03/28/24 03/28/24 03/28/24 06:06 06:06 06:06 Hold Purple Top SEE NOTE Anion Gap 13 Cancelled Estim Creat Clear Calc 50.7 Cancelled Estimated GFR > 60 Random Glucose Calcium Total Bilirubin AST ALT Alkaline Phosphatase Total Protein Albumin 03/28/24 03/28/24 03/28/24 06:06 06:06 06:06 Hold Purple Top Anion Gap Estim Creat Clear Calc Estimated GFR Cancelled Random Glucose 96 Cancelled Calcium 12.5 H* Cancelled Total Bilirubin 0.6 AST 24 ALT 13 Alkaline Phosphatase 126 H Total Protein 5.8 L Albumin 2.7 L Assessment and Plan (1) Hypercalcemia: Status: Acute Plan Pt is an 79-year-old female with a PMH significant for?HTN and HLD who presents to the ED for evaluation of worsening generalized weakness and inability to walk since this morning. Pt will be admitted to the hospital for treatment and further evaluation of hypercalcemia and generalized weakness in the setting of likely metastatic ovarian cancer. 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 Pace -- will give zometa x 1 now ca stable, continue tele, continue ivf follow lytes Leukocytosis likely reactive No evidence of acute infection, no evidence of sepsis No indication for antibiotics at this time Generalized weakness In the setting of above Pt with reduced p.o. intake Nutrition consult PT recommending home with services HTN Pt apparently no longer taking previous home meds, monitor bp HLD Pt apparently no longer taking previous home meds Code status changed to DNR/DNI DVT pptx -- lovenox Requires on going hospitalizatoin for treatment of hypercalcemia, hospice discussion pending for saturday Quality Stroke Does the patient have a stroke diagnosis?: No VTE Prior VTE?: No VTE Risk Level:: Medical - moderate - high VTE Device Contraindication: Treatment Not Indicated VTE Drug Contraindication: N/A - Med Ordered
[2024-03-28] MEDS: 0.9 % Sodium Chloride 1,000 ML 100 ML IVCONT (13:12)
--- NOTE | 2024-03-28 13:39 | PM.HEMONCPN ---
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 HYPERCALCEMIA. She remains jose alfredo lethargic. The calcium is sill elevated. She appears not to be drinking fluids. Interval History Interval history: Heavenly Hartman is a 79 year old lady, who presented to the ED for evaluation of worsening generalized weakness and inability to walk since yesterday morning. Patient was recently admitted to the hospital on 03/05-03/07 for hypercalcemia of 14.9 after presenting with loss of appetite and generalized weakness. Workup at that time showed a large, 22 cm heterogeneous attenuation left adnexal mass, highly suspicious for primary ovarian neoplasm, with evidence of metastasis to omentum/peritoneum, numerous pulmonary nodules, and large right hilar mass. Pt underwent CT-guided lung biopsy two days ago. Since then shet has seemingly been progressively weak, though she has not been eating or drinking much the past few weeks. Yesterday morning pt was being helped to the bathroom by her when he found her to be weak and unable to move. lowered her to the floor but then could not stand her up again so called EMS for assistance. Pt's only complaint is of generalized weakness. Denies lightheadedness or dizziness. No chest pain/pressure or palpitations. Denies abdominal pain. No N/V/D. Denies changes to bowel or bladder habits. No SOB or difficulty breathing. In the ED pt was tachycardic up to 130s and tachypnic to 21. Labs were significant for leukocytosis of 24.7, BUN 34, calcium 13.4, and albumin 3.1. CXR showed redemonstration of innumerable pulmonary nodules bilaterally. Initial EKG demonstrated sinus tachycardia with RBBB and left anterior fascicular block without evidence of significant ischemia. Pt was treated with 1L IVF. Pt was admitted to the hospital for treatment and further evaluation of hypercalcemia and generalized weakness in the setting of likely metastatic ovarian cancer. Review of Systems: She is not doing too well. She has been rather fatigued lately. No fever/chills. She has lost her apetite. She does not have a good taste. Has lost more weight. No SANDY. Has been dizzy. Has had cough and congestion, recently. C/O abdominal pain. Has nausea. Had a bout with vomiting, today, while trying to drink the Nystatin for oral thrush. She has been rather constipated. No dysuria/hematuria. Has arthritis of her knees. Has generalized weakness. Has felt depressed. Has felt pruritis. Review of Systems: Generalized weakness Reduced p.o. intake Chronic SOB around baseline Denies chest pain/pressure, palpitations No fever, chills, N/V/D, or abdominal pain [facility] Medical History: HTN and HLD Anorexia HLD (hyperlipidemia) HTN (hypertension) Family History: Mother Ovarian cancer Mom of Ovarian Cancer. Social History: She worked at [email or web address] She did [employer]. She is . Has 2 kids. Denies smoking. Drinks infrequently. Household Members: Family Housing: House Do you presently have visiting nurse or other home services: No Comment: daughter at bedside Patient Tobacco Use Status: Never used Tobacco Review of Systems - Constitutional Reports anorexia - Eyes Reports other - Cardiovascular Reports fast heart rate - Respiratory Reports dyspnea - Gastrointestinal Reports bloating, Denies constant urge to pass stool - Genitourinary Reports painful urination - Musculoskeletal Reports numbness - Neurologic Reports system reviewed and no additional complaints, except as documented [facility] Medical History: Medical History (Last Reviewed 03/27/24 @ 02:42 by NICOLASA Thorpe) Anorexia HLD (hyperlipidemia) HTN (hypertension) Family History: Family History (Last Reviewed 03/27/24 @ 02:42 by NICOLASA Thorpe) Mother Ovarian cancer Surgical History: Surgical History (Last Updated 03/27/24 @ 08:34 by Dena Fall PA-C) History of lung biopsy Social History: Social History (Last Reviewed 03/27/24 @ 02:42 by NIOCLASA Thorpe) Living Situation History: Household Members: Family Housing: House Do you presently have visiting nurse or other home services: No Alcohol History Details: 1. How often do you have a drink containing alcohol?: a. Never AUDIT-C Alcohol total score: 0 Currently Displaying Signs/Symptoms of Alcohol Withdrawal: No Tobacco History: Patient Tobacco Use Status: Never used Tobacco Smoked in Last 30 Days: No Substance Use History: Use of substances other than those prescribed or required for medical reasons: No Currently Displaying Signs/Symptoms of Drug Intoxication Withdrawal: No Advance Directives: Advance Directives: Yes Advance Directives on File: Yes Advance Directives Date on File: 03/26/24 Homicidal Assessment: Do you have a plan to hurt others: No Plan Occupation Assessmet: service: No Home Medications and Allergies Current Medications: Current Medications Acetaminophen (Acetaminophen 325 Mg Tablet) 650 mg PO Q6H PRN PRN Reason: Pain, Mild (Pain Scale 1-3), fever or headache Benzonatate (Benzonatate 100 Mg Capsule) 100 mg PO TID PRN PRN Reason: Cough Enoxaparin Sodium (Enoxaparin Sodium 40 Mg/0.4 Ml Syringe) 40 mg SUBCUT Q24H [facility] Last Admin: 03/27/24 22:41 Dose: 40 mg Sodium Chloride (Ns) 1,000 mls @ 100 mls/hr IVCONT .Q10H [facility] Last Admin: 03/28/24 13:12 Dose: 100 mls/hr Melatonin (Melatonin 3 Mg Tablet) 6 mg PO BEDTIME PRN PRN Reason: Insomnia Ondansetron HCl (Ondansetron Hcl 4 Mg/2 Ml Vial) 4 mg IVPUSH Q8H PRN PRN Reason: Nausea and Vomiting Polyethylene Glycol (Polyethylene Glycol 3350 17 Gm Powd.Pack) 17 gm PO DAILY PRN PRN Reason: Constipation Senna (Senna Aynor Extract Oral Syrup 15 Ml Syrup) 7.5 ml PO BEDTIME [facility] Sodium Chloride (0.9 % Sodium Chloride Flush 3 Ml Syringe) 3 ml IVFLUSH QSHIFT [facility] Last Admin: 03/28/24 08:29 Dose: Not Given Home Medications ?Medication ?Instructions ?Recorded ?Confirmed ?Type No Known Home Meds 03/26/24 03/26/24 History Allergies Allergy/AdvReac Type Severity Reaction Status Date / Time clotrimazole Allergy Intermediate Rash Verified 03/26/24 17:00 Sulfa (Sulfonamide Allergy Unknown Verified 03/26/24 17:00 Antibiotics) Exam Vital signs: Vital Signs Temp 97.4 F 03/28/24 12:00 Pulse 95 03/28/24 12:00 Resp 18 03/28/24 12:00 BP 147/88 H 03/28/24 12:00 Pulse Ox 96 03/28/24 12:00 O2 Del Method Room Air 03/28/24 12:00 Intake & Output 03/27/24 03/28/24 03/28/24 18:59 06:59 18:59 Intake Total 1330 / 2396.667 1066.667 / 2396.667 1118.333 / 1118.333 Output Total 300 / 300 Balance 1330 / 2096.667 766.667 / 2096.667 1118.333 / 1118.333 Urine Output (Average ml/kg/hr) 0.33 0.33 Intake: Intake, Oral Amount 240 / 340 100 / 340 250 / 250 Intake, IV Amount 1090 / 6.667 966.667 / 2056.667 868.333 / 868.333 Zoledronic AC/Mannitol/0.9NACL 100 / 100 4 mg In 100 ml @ 200 mls/hr IV ONCE ONE Rx#:[id number] 0.9 % Sodium Chloride 1,000 ml 990 / 6.667 966.667 / 1956.667 868.333 / 868.333 @ 100 mls/hr IVCONT .Q10H BLANK Rx#:[id number] Output: Output, Urine Amount 300 / 300 Other: Meal Refused Yes No NPO No Breakfast % Eaten bites Lunch % Eaten 0% Eating (Feeding) Ability 1:1 Feed Urine Color Yellow Weight 58.967 kg 75.3 kg Nolan Weight in Grams 86664 Weight 75.3 kg BMI result Body Mass Index 30.4 - Constitutional Present: no acute distress, moderate distress - Routine HEENT Exam Head: Present: normal inspection, normocephalic ENT: Present: normal oropharynx - Routine Neck Exam Present: full ROM - Routine Respiratory Exam Present: decreased breath sounds - Routine Cardiovascular Exam Cardiovascular: Present: RRR - Routine Abdominal Exam Present: diminished bowel sounds Data - Labs CBC & Chem 7: 03/27/24 05:55 03/28/24 06:06 Labs: Laboratory Last Values WBC 22.5 X10*3/uL (4.8-10.8) H 03/27/24 05:55 RBC 5.00 X10*6/uL (4.20-5.50) 03/27/24 05:55 Hgb 13.7 g/dl (12.0-16.0) 03/27/24 05:55 Hct 42.6 % (37.0-47.0) 03/27/24 05:55 MCV 85.2 fL (80.0-98.0) 03/27/24 05:55 MCH 27.4 pg (27.0-33.0) 03/27/24 05:55 MCHC 32.2 g/dl (31.0-35.0) 03/27/24 05:55 RDW 14.3 % (11.0-16.0) 03/27/24 05:55 Plt Count 282 X10*3/uL (160-400) 03/27/24 05:55 MPV 10.4 fL (9.4-12.3) 03/27/24 05:55 Immature Gran % (Auto) 1.3 % (0.0-0.4) H 03/26/24 17:48 Neut % (Auto) 89.0 % (45-73) H 03/26/24 17:48 Lymph % (Auto) 3.6 % (20-40) L 03/26/24 17:48 Sebastian % (Auto) 5.7 % (2-11) 03/26/24 17:48 Eos % (Auto) 0.0 % (0-4) 03/26/24 17:48 Baso % (Auto) 0.4 % (0-2) 03/26/24 17:48 Lymph # (Auto) 0.9 X10*3/uL (1.2-4.9) L 03/26/24 17:48 Sebastian # (Auto) 1.4 X10*3/uL (0.1-1.2) H 03/26/24 17:48 Eos # (Auto) 0.0 X10*3/uL (0.0-0.4) 03/26/24 17:48 Baso # (Auto) 0.1 X10*3/uL (0.0-0.2) 03/26/24 17:48 Abs Immat Gran (auto) 0.31 X10*3/uL (0.00-0.03) H 03/26/24 17:48 Absolute Neuts (auto) 22.0 x10*3/uL (2.0-8.3) H 03/26/24 17:48 Absolute Nucleated RBC 0.000 X10*3/uL (0.0-0.012) 03/27/24 05:55 Nucleated RBC % (auto) 0.0 /100WBC (0.0-0.2) 03/27/24 05:55 Smear Tech's Comments VERIFIED 03/26/24 17:48 Hold Purple Top SEE NOTE 03/28/24 06:06 Sodium 140 mmol/L (135-145) 03/28/24 06:06 Sodium Cancelled 03/28/24 06:06 Potassium 3.7 mmol/L (3.3-5.1) 03/28/24 06:06 Potassium Cancelled 03/28/24 06:06 Chloride 111 mmol/L (96-108) H 03/28/24 06:06 Chloride Cancelled 03/28/24 06:06 Carbon Dioxide 20 mmol/L (22-29) L 03/28/24 06:06 Carbon Dioxide Cancelled 03/28/24 06:06 Anion Gap 13 (12-20) 03/28/24 06:06 Anion Gap Cancelled 03/28/24 06:06 BUN 27 mg/dL (9-16) H 03/28/24 06:06 BUN Cancelled 03/28/24 06:06 Creatinine 0.70 mg/dL (0.5-1.4) 03/28/24 06:06 Creatinine Cancelled 03/28/24 06:06 Estim Creat Clear Calc 50.7 03/28/24 06:06 Estim Creat Clear Calc Cancelled 03/28/24 06:06 Estimated GFR > 60 03/28/24 06:06 Estimated GFR Cancelled 03/28/24 06:06 Random Glucose 96 mg/dL (60-115) 03/28/24 06:06 Random Glucose Cancelled 03/28/24 06:06 Calcium 12.5 mg/dL (8.4-10.2) H* 03/28/24 06:06 Calcium Cancelled 03/28/24 06:06 Magnesium 1.7 mg/dL (1.6-2.6) 03/26/24 17:48 Total Bilirubin 0.6 mg/dL (0.0-1.0) 03/28/24 06:06 Direct Bilirubin 0.3 mg/dL (0.0-0.5) 03/26/24 17:48 AST 24 U/L (5-31) 03/28/24 06:06 ALT 13 U/L (0-31) 03/28/24 06:06 Alkaline Phosphatase 126 U/L (39-117) H 03/28/24 06:06 Total Protein 5.8 g/dL (6.5-8.0) L 03/28/24 06:06 Albumin 2.7 g/dL (3.5-5.0) L 03/28/24 06:06 Influenza Type A (PCR) NEGATIVE (Negative) 03/26/24 17:48 Influenza Type B (PCR) NEGATIVE (Negative) 03/26/24 17:48 RSV RNA Qual (PCR) NEGATIVE (Negative) 03/26/24 17:48 SARS-CoV-2 RNA (RT-PCR) NEGATIVE (Negative) 03/26/24 17:48 - Imaging Radiologist's impression: ITS Impressions Chest X-Ray 03/26/24 17:27 IMPRESSION: 1. Bilateral low lung volumes. 2. Redemonstration of innumerable pulmonary nodules bilaterally, better evaluated on prior cross-sectional imaging. KUB X-Ray 03/28/24 10:40 IMPRESSION: 1. No dilated loops of bowel to suggest obstruction. 2. Mild fecal loading. 3. Coarsely calcified focus in the right lower abdomen corresponding to previously identified right adnexal lesion. Assessment and Plan Patient Active problem list reviewed?: Yes (1) Malignant ascites Status: Acute Assessment and plan: 79-year-old lady, she was in house back on March 09. She was noted to have hypercalcemia. Patient received pamidronate. CT scan of the chest revealed: 1. Innumerable pulmonary nodules some of which are cavitary. There is a large right hilar mass. Findings are most consistent with metastatic disease. 2. Abnormal gallbladder with calcifications and possible gallstones. A gallbladder mass cannot be excluded. Ultrasound of the gallbladder may be helpful. A paracentesis could be performed at that time for diagnosis. 3. Moderate ascites with omental carcinomatosis. 4. Fluid density in the renal pelves bilaterally which I suspect is parapelvic cysts but hydronephrosis cannot be excluded. Ultrasound of the abdomen from 03/06 revealed: Significantly limited evaluation due to bowel gas and ascites. Calcified gallstone versus calcified mass in the gallbladder is not well evaluated. Recommend further evaluation with CT of the abdomen without and with intravenous contrast. Question mild hydronephrosis. CT scan of the abdomen from 03/07 revealed: 1. Large, 22 cm heterogeneous attenuation left adnexal mass, highly suspicious for primary ovarian neoplasm, with evidence of omental/peritoneal carcinomatosis, and bilateral pelvic chilo disease. Extensive pulmonary and thoracic chilo disease better assessed on recent prior CT chest. 2. Mild left greater than right hydroureteronephrosis to the level of the pelvic inlet where the ureters course adjacent to the dominant left adnexal mass, likely relates to mass effect given size of pelvic mass, though direct ureteral involvement could appear similar. 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 No suspicious gall bladder lesions identified. Meanwhile baseline tumor markers: CEA: 144, CA 125: 92. and CA 19-9: <3. Concern is underlying [employer]gr[employer] In[employer] malignancy, with carcinomatosis and pulmonary metastases. She had a diagnostic paracentesis. Cytology appeared to be nondiagnostic. She underwent biopsy of the lung nodule on 03/24. Preliminary results: Poorly-differentiated adenocarcinoma. Further molecular testing is in progress. She now presents with generalized weakness and failure to thrive. Calcium is up to 13.4. I shared the results with her, her and daughter. They need time to process information. PLAN: For now she will receive Zometa for hypercalcemia. Will request PT, for reconditioning. She was prescribed Zofran for nausea. Switched over to Diflucan for oral yeast infection. She has been started on Megace. She will try Ensure supplements. Further plan will depend upon the final pathological diagnosis. For now they are considering all options. Would like an informational visit from hospice. Will set that up upon Saturday. Thanks, CC: Dr. Hernandez. Dr. Mcintosh. - Time Spent With Patient Time Spent with Patient (in minutes): 20
[2024-03-28] MEDS: Hydrocortisone 2.5 % Rectal Cr 30 GM TUBE 1 APPL PR ×2 (16:32→21:18)
[2024-03-28] MEDS: Sennosides/Docusate Sodium TABLET 1 TAB PO (16:32)
[2024-03-28] MEDS: Enoxaparin Sodium 40 MG/0.4 ML SYRINGE SUBCUT (21:14)
[2024-03-28] MEDS: 0.9 % Sodium Chloride Flush 3 ML SYRINGE IVFLUSH (22:41)
[2024-03-29] VITALS: BP 160/80; PULSE 78; RESP 16; TEMP 36.6; O2SAT 94
[2024-03-29 04:00] VITALS: BP 162/80; PULSE 105; RESP 16; TEMP 36.1; O2SAT 93
[2024-03-29 06:00] VITALS: BMI 31.7
[2024-03-29 06:47] LABS: Anion Gap 15 (12-20); Blood Urea Nitrogen 24 mg/dL (9-16); Calcium 12.3 mg/dL (8.4-10.2); Carbon Dioxide 19 mmol/L (22-29); Chloride 112 mmol/L (96-108); Creatinine Clr Calc Pharmacy 62.6; Estimated Glomerular Filt Rate > 60; Glucose Random 102 mg/dL (60-115); Potassium 3.5 mmol/L (3.3-5.1); Sodium 142 mmol/L (135-145)
[2024-03-29 08:00] VITALS: BP 146/85; PULSE 100; RESP 20; TEMP 36.4; O2SAT 92
[2024-03-29] MEDS: Sennosides/Docusate Sodium TABLET 1 TAB PO ×2 (09:49→20:30)
[2024-03-29] MEDS: 0.9 % Sodium Chloride 1,000 ML 100 ML IVCONT ×2 (09:50→20:29)
[2024-03-29] MEDS: Hydrocortisone 2.5 % Rectal Cr 30 GM TUBE 1 APPL PR ×2 (09:50→20:31)
[2024-03-29 11:29] VITALS: BP 158/81; PULSE 99; RESP 20; TEMP 36.5; O2SAT 93
--- NOTE | 2024-03-29 11:52 | PM.HEMONCPN ---
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 HYPERCALCEMIA. She remains very lethargic. The calcium is still elevated at 12.3. She appears not to be drinking fluids. Her daughter Yaneth was a bedside and is trying to decide on aggressive palliative care. She is waiting to see how strong her mother is when the calcium normalizes. Interval History Interval history: Heavenly Hartman is a 79 year old lady, who presented to the ED for evaluation of worsening generalized weakness and inability to walk since yesterday morning. Patient was recently admitted to the hospital on 03/05-03/07 for hypercalcemia of 14.9 after presenting with loss of appetite and generalized weakness. Workup at that time showed a large, 22 cm heterogeneous attenuation left adnexal mass, highly suspicious for primary ovarian neoplasm, with evidence of metastasis to omentum/peritoneum, numerous pulmonary nodules, and large right hilar mass. Pt underwent CT-guided lung biopsy two days ago. Since then shet has seemingly been progressively weak, though she has not been eating or drinking much the past few weeks. Yesterday morning pt was being helped to the bathroom by her when he found her to be weak and unable to move. lowered her to the floor but then could not stand her up again so called EMS for assistance. Pt's only complaint is of generalized weakness. Denies lightheadedness or dizziness. No chest pain/pressure or palpitations. Denies abdominal pain. No N/V/D. Denies changes to bowel or bladder habits. No SOB or difficulty breathing. In the ED pt was tachycardic up to 130s and tachypnic to 21. Labs were significant for leukocytosis of 24.7, BUN 34, calcium 13.4, and albumin 3.1. CXR showed redemonstration of innumerable pulmonary nodules bilaterally. Initial EKG demonstrated sinus tachycardia with RBBB and left anterior fascicular block without evidence of significant ischemia. Pt was treated with 1L IVF. Pt was admitted to the hospital for treatment and further evaluation of hypercalcemia and generalized weakness in the setting of likely metastatic ovarian cancer. Review of Systems: She is not doing too well. She has been rather fatigued lately. No fever/chills. She has lost her apetite. She does not have a good taste. Has lost more weight. No SANDY. Has been dizzy. Has had cough and congestion, recently. C/O abdominal pain. Has nausea. Had a bout with vomiting, today, while trying to drink the Nystatin for oral thrush. She has been rather constipated. No dysuria/hematuria. Has arthritis of her knees. Has generalized weakness. Has felt depressed. Has felt pruritis. Review of Systems: Generalized weakness Reduced p.o. intake Chronic SOB around baseline Denies chest pain/pressure, palpitations No fever, chills, N/V/D, or abdominal pain [facility] Medical History: HTN and HLD Anorexia HLD (hyperlipidemia) HTN (hypertension) Family History: Mother Ovarian cancer Mom of Ovarian Cancer. Social History: She worked at [employer]. She did [employer]. She is . Has 2 kids. Denies smoking. Drinks infrequently. Household Members: Family Housing: House Do you presently have visiting nurse or other home services: No Comment: daughter at bedside Patient Tobacco Use Status: Never used Tobacco Review of Systems - Constitutional Reports fatigue, Reports malaise - Cardiovascular Reports fast heart rate, Reports lightheadedness - Respiratory Reports dyspnea on exertion - Gastrointestinal Reports abdominal pain - Musculoskeletal Reports decreased muscle mass - Neurologic Reports system reviewed and no additional complaints, except as documented, Reports numbness [facility] Medical History: Medical History (Last Reviewed 03/27/24 @ 02:42 by NICOLASA Thorpe) Anorexia HLD (hyperlipidemia) HTN (hypertension) Family History: Family History (Last Reviewed 03/27/24 @ 02:42 by NICOLASA Thorpe) Mother Ovarian cancer Surgical History: Surgical History (Last Updated 03/27/24 @ 08:34 by Dena Fall PA-C) History of lung biopsy Social History: Social History (Last Reviewed 03/27/24 @ 02:42 by NICOLASA Thorpe) Living Situation History: Household Members: Family Housing: House Do you presently have visiting nurse or other home services: No Alcohol History Details: 1. How often do you have a drink containing alcohol?: a. Never AUDIT-C Alcohol total score: 0 Currently Displaying Signs/Symptoms of Alcohol Withdrawal: No Tobacco History: Patient Tobacco Use Status: Never used Tobacco Smoked in Last 30 Days: No Substance Use History: Use of substances other than those prescribed or required for medical reasons: No Currently Displaying Signs/Symptoms of Drug Intoxication Withdrawal: No Advance Directives: Advance Directives: Yes Advance Directives on File: Yes Advance Directives Date on File: 03/26/24 Homicidal Assessment: Do you have a plan to hurt others: No Plan Occupation Assessmet: service: No Home Medications and Allergies Current Medications: Current Medications Acetaminophen (Acetaminophen 325 Mg Tablet) 650 mg PO Q6H PRN PRN Reason: Pain, Mild (Pain Scale 1-3), fever or headache Benzonatate (Benzonatate 100 Mg Capsule) 100 mg PO TID PRN PRN Reason: Cough Enoxaparin Sodium (Enoxaparin Sodium 40 Mg/0.4 Ml Syringe) 40 mg SUBCUT Q24H [facility] Last Admin: 03/28/24 21:14 Dose: 40 mg Hydrocortisone (Hydrocortisone 2.5 % Rectal Cr 30 Gm Tube) 1 appl [place] BID [facility] Last Admin: 03/29/24 09:50 Dose: 1 appl Sodium Chloride (Ns) 1,000 mls @ 100 mls/hr IVCONT .Q10H [facility] Last Admin: 03/29/24 09:50 Dose: 100 mls/hr Melatonin (Melatonin 3 Mg Tablet) 6 mg PO BEDTIME PRN PRN Reason: Insomnia Ondansetron HCl (Ondansetron Hcl 4 Mg/2 Ml Vial) 4 mg IVPUSH Q8H PRN PRN Reason: Nausea and Vomiting Polyethylene Glycol (Polyethylene Glycol 3350 17 Gm Powd.Pack) 17 gm PO DAILY PRN PRN Reason: Constipation Senna/Docusate Sodium (Sennosides/Docusate Sodium Tablet) 1 tab PO BID [facility] Last Admin: 03/29/24 09:49 Dose: 1 tab Sodium Chloride (0.9 % Sodium Chloride Flush 3 Ml Syringe) 3 ml IVFLUSH QSHIFT [facility] Last Admin: 03/29/24 09:53 Dose: Not Given Home Medications ?Medication ?Instructions ?Recorded ?Confirmed ?Type No Known Home Meds 03/26/24 03/26/24 History Allergies Allergy/AdvReac Type Severity Reaction Status Date / Time clotrimazole Allergy Intermediate Rash Verified 03/26/24 17:00 Sulfa (Sulfonamide Allergy Unknown Verified 03/26/24 17:00 Antibiotics) Exam Vital signs: Vital Signs Temp 97.7 F 03/29/24 11:29 Pulse 99 03/29/24 11:29 Resp 20 03/29/24 11:29 BP 158/81 H 03/29/24 11:29 Pulse Ox 93 03/29/24 11:29 O2 Del Method Room Air 03/29/24 11:29 Intake & Output 03/28/24 03/29/24 03/29/24 18:59 06:59 18:59 Intake Total 1118.333 / 2118.333 1000 / 2118.333 Output Total 300 / 300 Balance 1118.333 / 1818.333 700 / 1818.333 Urine Output (Average ml/kg/hr) 0.32 Intake: Intake, Oral Amount 250 / 250 Intake, IV Amount 868.333 / 9708.012 1472 / 1868.333 0.9 % Sodium Chloride 1,000 ml 868.333 / 2761.873 8882 / 1868.333 @ 100 mls/hr IVCONT .Q10H BLANK Rx#:[id number] Output: Output, Urine Amount 300 / 300 Other: Meal Refused No NPO No Breakfast % Eaten bites Lunch % Eaten 0% Eating (Feeding) Ability 1:1 Feed Number of Incontinent Voids 1 Number of Unmeasured Voids 1 Urine Color Yellow Weight 78.6 kg [place] Weight in Grams 99844 Weight 78.6 kg BMI result Body Mass Index 31.7 - Constitutional Present: no acute distress, moderate distress - Routine HEENT Exam Head: Present: normal inspection, normocephalic Eye: Present: normal appearance ENT: Present: mucous membranes dry - Routine Neck Exam Present: full ROM - Routine Respiratory Exam Present: decreased breath sounds - Routine Cardiovascular Exam Cardiovascular: Present: RRR - Routine Abdominal Exam Present: diminished bowel sounds Data - Labs CBC & Chem 7: 03/27/24 05:55 03/29/24 06:09 - Imaging Radiologist's impression: ITS Impressions Chest X-Ray 03/26/24 17:27 IMPRESSION: 1. Bilateral low lung volumes. 2. Redemonstration of innumerable pulmonary nodules bilaterally, better evaluated on prior cross-sectional imaging. KUB X-Ray 03/28/24 10:40 IMPRESSION: 1. No dilated loops of bowel to suggest obstruction. 2. Mild fecal loading. 3. Coarsely calcified focus in the right lower abdomen corresponding to previously identified right adnexal lesion. Assessment and Plan Patient Active problem list reviewed?: Yes (1) Malignant ascites Status: Acute Assessment and plan: 79-year-old lady, she was in house back on March 09. She was noted to have hypercalcemia. Patient received pamidronate. CT scan of the chest revealed: 1. Innumerable pulmonary nodules some of which are cavitary. There is a large right hilar mass. Findings are most consistent with metastatic disease. 2. Abnormal gallbladder with calcifications and possible gallstones. A gallbladder mass cannot be excluded. Ultrasound of the gallbladder may be helpful. A paracentesis could be performed at that time for diagnosis. 3. Moderate ascites with omental carcinomatosis. 4. Fluid density in the renal pelves bilaterally which I suspect is parapelvic cysts but hydronephrosis cannot be excluded. Ultrasound of the abdomen from 03/06 revealed: Significantly limited evaluation due to bowel gas and ascites. Calcified gallstone versus calcified mass in the gallbladder is not well evaluated. Recommend further evaluation with CT of the abdomen without and with intravenous contrast. Question mild hydronephrosis. CT scan of the abdomen from 03/07 revealed: 1. Large, 22 cm heterogeneous attenuation left adnexal mass, highly suspicious for primary ovarian neoplasm, with evidence of omental/peritoneal carcinomatosis, and bilateral pelvic chilo disease. Extensive pulmonary and thoracic chilo disease better assessed on recent prior CT chest. 2. Mild left greater than right hydroureteronephrosis to the level of the pelvic inlet where the ureters course adjacent to the dominant left adnexal mass, likely relates to mass effect given size of pelvic mass, though direct ureteral involvement could appear similar. 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 No suspicious gall bladder lesions identified. Meanwhile baseline tumor markers: CEA: 144, CA 125: 92. and CA 19-9: <3. 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 She had a diagnostic paracentesis. Cytology appeared to be nondiagnostic. She underwent biopsy of the lung nodule on 03/24. Preliminary results: Poorly-differentiated adenocarcinoma. Further molecular testing is in progress. She now presents with generalized weakness and failure to thrive. Calcium is up to 13.4. I shared the results with her, her and daughter. They need time to process information. PLAN: For now she will receive Zometa for hypercalcemia. Will request PT, for reconditioning. She was prescribed Zofran for nausea. Switched over to Diflucan for oral yeast infection. She has been started on Megace. She will try Ensure supplements. Further plan will depend upon the final pathological diagnosis. For now they are considering all options. Would like an informational visit from hospice. Will set that up upon Saturday. Thanks, CC: Dr. Hernandez. Dr. Mcintosh. - Time Spent With Patient Time Spent with Patient (in minutes): 15
--- NOTE | 2024-03-29 14:59 | HO.PM.IMPN ---
Subjective Subjective Date of Service: 03/29/24 Interval History: seen in follow up for malignant hypercalcemia interval history pt more awake today, still weak appearing. Oriented x4- able to tell me why she came to the hospital, about her cancer diagnosis. Tearful, anxious. Complaining of dry mouth, limited PO intake Review of Systems Review of Systems: Yes all other systems are reviewed and are negative Physical Exam Vital Signs: Vital Signs: Last Vital Signs Temp 97.7 F 03/29/24 11:29 Pulse 99 03/29/24 11:29 Resp 20 03/29/24 11:29 BP 158/81 H 03/29/24 11:29 Pulse Ox 93 03/29/24 11:29 O2 Del Method Room Air 03/29/24 11:29 BMI result Body Mass Index 31.7 Constitutional - Awake and Alert, No apparent distress Eyes - PERRLA, EOMI Cardiovascular - S1S2, RRR, No edema Respiratory - Normal lung expansion, Normal respiratory effort, No respiratory distress, CTA bilaterally Gastrointestinal - NT / ND; +BS; No rebound or guarding Extremities - no calf tenderness bilaterally, no swelling Skin - Warm/Dry Neurological - Alert & oriented x3 Psychological - Appropriate affect Objective Data Active Medications Acetaminophen (Acetaminophen 325 Mg Tablet) 650 mg PO Q6H PRN PRN Reason: Pain, Mild (Pain Scale 1-3), fever or headache Benzonatate (Benzonatate 100 Mg Capsule) 100 mg PO TID PRN PRN Reason: Cough Enoxaparin Sodium (Enoxaparin Sodium 40 Mg/0.4 Ml Syringe) 40 mg SUBCUT Q24H [facility] Last Admin: 03/28/24 21:14 Dose: 40 mg Documented By: KULWANT Hydrocortisone (Hydrocortisone 2.5 % Rectal Cr 30 Gm Tube) 1 appl [place] BID BLANK Last Admin: 03/29/24 09:50 Dose: 1 appl Documented By: HANG Sodium Chloride (Ns) 1,000 mls @ 100 mls/hr IVCONT .Q10H [facility] Last Admin: 03/29/24 09:50 Dose: 100 mls/hr Documented By: HANG Melatonin (Melatonin 3 Mg Tablet) 6 mg PO BEDTIME PRN PRN Reason: Insomnia Ondansetron HCl (Ondansetron Hcl 4 Mg/2 Ml Vial) 4 mg IVPUSH Q8H PRN PRN Reason: Nausea and Vomiting Polyethylene Glycol (Polyethylene Glycol 3350 17 Gm Powd.Pack) 17 gm PO DAILY PRN PRN Reason: Constipation Senna/Docusate Sodium (Sennosides/Docusate Sodium Tablet) 1 tab PO BID [facility] Last Admin: 03/29/24 09:49 Dose: 1 tab Documented By: HANG Sodium Chloride (0.9 % Sodium Chloride Flush 3 Ml Syringe) 3 ml IVFLUSH QSHIFT [facility] Last Admin: 03/29/24 09:53 Dose: Not Given Documented By: HANG Non-Admin Reason: IV Running Labs 03/27/24 05:55 03/29/24 06:09 Labs: Laboratory Results - last 24 hr 03/29/24 06:09 Hold Purple Top SEE NOTE Anion Gap 15 Estim Creat Clear Calc 62.6 Estimated GFR > 60 Random Glucose 102 Calcium 12.3 H Assessment and Plan (1) Hypercalcemia: Status: Acute Plan Pt is an 79-year-old female with a PMH significant for?HTN and HLD who presents to the ED for evaluation of worsening generalized weakness and inability to walk since this morning. Pt will be admitted to the hospital for treatment and further evaluation of hypercalcemia and generalized weakness in the setting of likely metastatic ovarian cancer. Hypercalcemia - likely secondary to underlying insulation cutter malignancy with suspected pulmonary mets continue IVF. Taking in more, but still limited PO. d/w Dr. Pace -- given zometa x1 03/27 ca stable, continue tele, continue ivf follow lytes hospice consult pending for saturday Poor PO intake slightly improved, continue magic cups/ensure nutrition following still requiring IVF Megace added Leukocytosis likely reactive No evidence of acute infection, no evidence of sepsis No indication for antibiotics at this time Generalized weakness In the setting of above Pt with reduced p.o. intake Nutrition consult PT recommending home with services HTN Pt apparently no longer taking previous home meds, monitor bp HLD Pt apparently no longer taking previous home meds DVT pptx -- lovenox Code status changed back to Full code after lengthy discussion with patient. Yesterday, pt was lethargic, poor sleep night prior. Today she is oriented x4, able to tell me about why she is in the hospital, weakness, and her cancer diagnosis. She is tearful, but adamant that she would like to find out final pathological diagnosis before changing code status. She expresses strong desire to live and pursue treatment if reasonable. We did discuss that her cancer is metastatic and that she is currently not tolerating much PO. Discussed briefly tube feeds, but patient does not wish to make a decision about that at this time. Discussed that we would add megace as advised by oncology and see if appetite improves. Thus far PO intake has improved today compared to yesterday. Hospice meeting is still planned for tomorrow with case management. At this time, will change code status back to full code. Discussed with son at bedside and daughter Yaneth on the phone. Requires on going hospitalizatoin for treatment of hypercalcemia, hospice discussion pending for saturday Quality Stroke Does the patient have a stroke diagnosis?: No VTE Prior VTE?: No VTE Risk Level:: Medical - moderate - high VTE Device Contraindication: Treatment Not Indicated VTE Drug Contraindication: N/A - Med Ordered
[2024-03-29 15:22] VITALS: BP 163/75; PULSE 98; RESP 20; TEMP 36.2; O2SAT 93
[2024-03-29 19:00] VITALS: BP 157/78; PULSE 98; RESP 20; TEMP 36.1; O2SAT 93
[2024-03-29] MEDS: Enoxaparin Sodium 40 MG/0.4 ML SYRINGE SUBCUT (20:29)
[2024-03-29] MEDS: 0.9 % Sodium Chloride Flush 3 ML SYRINGE IVFLUSH (20:30)
[2024-03-29] MEDS: Lactated Ringers 1,000 ML 999 ML IV (23:18)
[2024-03-30] VITALS (7 sets, daily range): BP systolic 125–184; BP diastolic 56–97; PULSE 97–122; RESP 18–20; TEMP 36.3–37.1; O2SAT 92–96; BMI 32.0
[2024-03-30] MEDS: Lactated Ringers 1,000 ML 100 ML IVCONT ×3 (00:21→21:17)
--- NOTE | 2024-03-30 03:42 | PC.NURSE ---
PT AOx3, lethargic, poor PO intake. She is able to make her needs known. Purewick in place, urine is tea colored. She is on RA, lungs sound diminshed. She became tachycardic into the 120's and sustaining. Hospitalist contacted who reviewed pt's record. Hospitalist ordered 1L LR bolus to be administered and to change IVF to LR after bolus had been infused. See MAR for administration. Son is bedside and is appropriate. Call tracey within reach. Bed alarm on.
[2024-03-30 07:04] LABS: Anion Gap 13 (12-20); Blood Urea Nitrogen 23 mg/dL (9-16); Calcium 11.6 mg/dL (8.4-10.2); Carbon Dioxide 21 mmol/L (22-29); Chloride 112 mmol/L (96-108); Creatinine Clr Calc Pharmacy 68.3; Estimated Glomerular Filt Rate > 60; Glucose Random 97 mg/dL (60-115); Magnesium 1.7 mg/dL (1.6-2.6); Potassium 3.6 mmol/L (3.3-5.1); Sodium 142 mmol/L (135-145)
--- NOTE | 2024-03-30 10:27 | P.PNIM_ITS ---
Subjective Subjective Date of Service: 03/30/24 Interval History: seen in follow up for malignant hypercalcemia interval history pt more awake today, still weak appearing. Oriented x4 Review of Systems Review of Systems: Yes all other systems are reviewed and are negative Physical Exam 2 Vital Signs: Vital Signs: Last Vital Signs Temp 97.5 F 03/30/24 08:00 Pulse 97 03/30/24 08:00 Resp 20 03/30/24 08:00 BP 153/84 H 03/30/24 08:00 Pulse Ox 95 03/30/24 08:00 O2 Del Method Room Air 03/30/24 08:00 BMI result Body Mass Index 32.0 Appearing in no acute distress lung sounds are clear to auscultation heart regular rate rhythm, clear S1, S2 positive bowel sounds, abdomen is soft, nontender neuro patient is alert x3, no focal deficits Objective Data Active Medications Acetaminophen (Acetaminophen 325 Mg Tablet) 650 mg PO Q6H PRN PRN Reason: Pain, Mild (Pain Scale 1-3), fever or headache Benzonatate (Benzonatate 100 Mg Capsule) 100 mg PO TID PRN PRN Reason: Cough Enoxaparin Sodium (Enoxaparin Sodium 40 Mg/0.4 Ml Syringe) 40 mg SUBCUT Q24H [facility] Last Admin: 03/29/24 20:29 Dose: 40 mg Documented By: CORDELIA Hydrocortisone (Hydrocortisone 2.5 % Rectal Cr 30 Gm Tube) 1 appl [place] BID [facility] Last Admin: 03/29/24 20:31 Dose: 1 appl Documented By: CORDELIA Lactated Ringer's (Lr) 1,000 mls @ 100 mls/hr IVCONT .Q10H [facility] Last Admin: 03/30/24 00:21 Dose: 100 mls/hr Documented By: CORDELIA Megestrol Acetate (Megestrol Acetate 400 Mg/10 Ml Oral.Susp) 400 mg PO DAILY [facility] Melatonin (Melatonin 3 Mg Tablet) 6 mg PO BEDTIME PRN PRN Reason: Insomnia Ondansetron HCl (Ondansetron Hcl 4 Mg/2 Ml Vial) 4 mg IVPUSH Q8H PRN PRN Reason: Nausea and Vomiting Polyethylene Glycol (Polyethylene Glycol 3350 17 Gm Powd.Pack) 17 gm PO DAILY PRN PRN Reason: Constipation Senna/Docusate Sodium (Sennosides/Docusate Sodium Tablet) 1 tab PO BID [facility] Last Admin: 03/29/24 20:30 Dose: 1 tab Documented By: CORDELIA Sodium Chloride (0.9 % Sodium Chloride Flush 3 Ml Syringe) 3 ml IVFLUSH QSHIFT [facility] Last Admin: 03/29/24 20:30 Dose: 3 ml Documented By: CORDELIA Labs 03/27/24 05:55 03/30/24 06:18 Labs: Laboratory Results - last 24 hr 03/30/24 06:18 Hold Purple Top SEE NOTE Anion Gap 13 Estim Creat Clear Calc 68.3 Estimated GFR > 60 Random Glucose 97 Calcium 11.6 H Magnesium 1.7 Assessment and Plan (1) Hypercalcemia: Status: Acute Plan 79-year-old female with a PMH significant for?HTN and HLD who presents to the ED for evaluation of worsening generalized weakness and inability to walk since this morning. Pt will be admitted to the hospital for treatment and further evaluation of hypercalcemia and generalized weakness in the setting of likely metastatic ovarian cancer. Tachycardia concern for PE in light of malignancy chect CTA Hypercalcemia - likely secondary to underlying damage appraiser malignancy with suspected pulmonary mets continue IVF. Taking in more, but still limited PO. d/w Dr. Pace -- given zometa x1 03/27 follow lytes hospice consult Poor PO intake slightly improved, continue magic cups/ensure nutrition following still requiring IVF Megace added Leukocytosis likely reactive No evidence of acute infection, no evidence of sepsis No indication for antibiotics at this time Generalized weakness In the setting of above Pt with reduced p.o. intake Nutrition consult PT recommending home with services HTN Pt apparently no longer taking previous home meds, monitor bp HLD Pt apparently no longer taking previous home meds DVT pptx -- lovenox attending Dr. Hernandez Code status changed back to Full code after lengthy discussion with patient. Yesterday, pt was lethargic, poor sleep night prior. Today she is oriented x4, able to tell me about why she is in the hospital, weakness, and her cancer diagnosis. She is tearful, but adamant that she would like to find out final pathological diagnosis before changing code status. She expresses strong desire to live and pursue treatment if reasonable. We did discuss that her cancer is metastatic and that she is currently not tolerating much PO. Discussed briefly tube feeds, but patient does not wish to make a decision about that at this time. Discussed that we would add megace as advised by oncology and see if appetite improves. Thus far PO intake has improved today compared to yesterday. Hospice meeting is still planned for tomorrow with case management. At this time, will change code status back to full code. Discussed with son at bedside and daughter Yaneth on the phone. Requires on going hospitalization for treatment of hypercalcemia Quality Stroke Does the patient have a stroke diagnosis?: No VTE Prior VTE?: No VTE Risk Level:: Medical - moderate - high VTE Device Contraindication: Treatment Not Indicated VTE Drug Contraindication: N/A - Med Ordered
[2024-03-30] MEDS: Hydrocortisone 2.5 % Rectal Cr 30 GM TUBE 1 APPL PR ×2 (10:30→21:18)
[2024-03-30] MEDS: Megestrol Acetate 400 MG/10 ML ORAL.SUSP PO (10:30)
[2024-03-30] MEDS: Sennosides/Docusate Sodium TABLET 1 TAB PO ×2 (10:31→21:17)
[2024-03-30] MEDS: 0.9 % Sodium Chloride Flush 3 ML SYRINGE IVFLUSH (10:32)
--- NOTE | 2024-03-30 11:08 | MHC.CLN ---
F/U PT IS MODERATELY MALNOURISHED-NONSEVERE MALNUTRITION IN THE CONTEXT OF ACUTE ILLNESS SEE FULL CLINICAL NUTRITION ASSESSMENT DATED 03/27/24 PO INTAKE 0-25% (SIPS AND BITES) DIET RX: REGULAR-APPROPRIATE PT RECEIVING ENSURE TID PROVIDES 1050KCALS, 60G PROTEIN IN ADDITION, MAGIC CUP WITH MEAL TRAYS PROVIDES 870KCALS, 27G PROTEIN MEGACE STARTED PER MD MONITOR PO INTAKE AND ENCOURAGE SUPPLEMENTS DAILY WTS R/T DX MALNUTRITION
[2024-03-30] MEDS: iohexoL 350 MG/ML 100 ML INFUS..BTL 65 ML IV (18:11)
[2024-03-30] MEDS: Nystatin Oral Susp 500,000 UNIT/5 ML ORAL.SUSP 200000 UNIT BUCCAL ×2 (18:16→21:16)
[2024-03-30] MEDS: Enoxaparin Sodium 40 MG/0.4 ML SYRINGE SUBCUT (21:17)
[2024-03-31 03:49] VITALS: BP 157/88; PULSE 107; RESP 16; TEMP 36.8; O2SAT 95
[2024-03-31] MEDS: OLANZapine 5 MG TABLET PO (03:49)
--- NOTE | 2024-03-31 04:16 | PC.NURSE ---
Very restless. Taking clothe off, not able to sleep. Denies pain or discomfort.Patient son at bedside. Dr Foster informed via text.Zyprexa 5mg was order and administered as ordered.Close monitoring.
[2024-03-31 06:00] VITALS: BMI 31.9
[2024-03-31 07:46] VITALS: BP 154/87; PULSE 120; RESP 19; TEMP 36.4; O2SAT 96
[2024-03-31] MEDS: Nystatin Oral Susp 500,000 UNIT/5 ML ORAL.SUSP 200000 UNIT BUCCAL (09:16)
[2024-03-31] MEDS: Sennosides/Docusate Sodium TABLET 1 TAB PO (09:16)
[2024-03-31] MEDS: Hydrocortisone 2.5 % Rectal Cr 30 GM TUBE 1 APPL PR (09:16)
[2024-03-31] MEDS: Lactated Ringers 1,000 ML 100 ML IVCONT (09:17)
--- NOTE | 2024-03-31 10:33 | HO.PM.IMPN ---
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 Review of Systems Review of Systems: Yes all other systems are reviewed and are negative Physical Exam Vital Signs: Vital Signs: Last Vital Signs Temp 97.6 F 03/31/24 07:46 Pulse 120 H 03/31/24 07:46 Resp 19 03/31/24 07:46 BP 154/87 H 03/31/24 07:46 Pulse Ox 96 03/31/24 07:46 O2 Del Method Room Air 03/31/24 07:46 BMI result Body Mass Index 31.9 Objective Data Active Medications Acetaminophen (Acetaminophen 325 Mg Tablet) 650 mg PO Q6H PRN PRN Reason: Pain, Mild (Pain Scale 1-3), fever or headache Benzonatate (Benzonatate 100 Mg Capsule) 100 mg PO TID PRN PRN Reason: Cough Enoxaparin Sodium (Enoxaparin Sodium 40 Mg/0.4 Ml Syringe) 40 mg SUBCUT Q24H [facility] Last Admin: 03/30/24 21:17 Dose: 40 mg Documented By: AURELIO Hydrocortisone (Hydrocortisone 2.5 % Rectal Cr 30 Gm Tube) 1 appl VA BID [facility] Last Admin: 03/31/24 09:16 Dose: 1 appl Documented By: CARLO Lactated Ringer's (Lr) 1,000 mls @ 100 mls/hr IVCONT .Q10H [facility] Last Admin: 03/31/24 09:17 Dose: 100 mls/hr Documented By: CARLO Lidocaine/Diphenhydr/Alum/Mg/Simeth (Mag&Al/Sim/Diphenhyd/Lidocaine 10 Ml Oral.Susp) 10 ml PO Q4H PRN; Protocol PRN Reason: thrush Megestrol Acetate (Megestrol Acetate 400 Mg/10 Ml Oral.Susp) 400 mg PO DAILY [facility] Last Admin: 03/31/24 09:27 Dose: Not Given Documented By: CARLO Non-Admin Reason: patient unable to swallow Melatonin (Melatonin 3 Mg Tablet) 6 mg PO BEDTIME PRN PRN Reason: Insomnia Morphine Sulfate (Morphine Sulfate 2 Mg/Ml Cartridge) 0.5 mg IVPUSH Q4H PRN; Protocol PRN Reason: Pain, Moderate(Pain Scale 4-6) Nystatin (Nystatin Oral Susp 500,000 Unit/5 Ml Oral.Susp) 200,000 unit BUCCAL QID [facility]; Protocol Last Admin: 03/31/24 09:16 Dose: 200,000 unit Documented By: CARLO Comments: patient unable to swallow full medication Ondansetron HCl (Ondansetron Hcl 4 Mg/2 Ml Vial) 4 mg IVPUSH Q8H PRN PRN Reason: Nausea and Vomiting Polyethylene Glycol (Polyethylene Glycol 3350 17 Gm Powd.Pack) 17 gm PO DAILY PRN PRN Reason: Constipation Senna/Docusate Sodium (Sennosides/Docusate Sodium Tablet) 1 tab PO BID [facility] Last Admin: 03/31/24 09:16 Dose: 1 tab Documented By: CARLO Sodium Chloride (0.9 % Sodium Chloride Flush 3 Ml Syringe) 3 ml IVFLUSH QSHIFT [facility] Last Admin: 03/31/24 09:16 Dose: Not Given Documented By: CARLO Non-Admin Reason: IV Running Labs 03/27/24 05:55 03/30/24 06:18 Assessment and Plan (1) Hypercalcemia: Status: Acute Plan 79-year-old female with a PMH significant for?HTN and HLD who presents to the ED for evaluation of worsening generalized weakness and inability to walk since this morning. Pt will be admitted to the hospital for treatment and further evaluation of hypercalcemia and generalized weakness in the setting of likely metastatic ovarian cancer. Comfort measures only plan to transfer patient home with hospice Stop all medications no lab draws or scheduled vital signs morphine, lorazepam prn scopalamine patch for secretions Initial conditions treated Tachycardia concern for PE in light of malignancy moderate bilateral pulm emboli noted on cta with ascites Hypercalcemia >secondary to underlying medical asst malignancy with suspected pulmonary mets continue IVF. Taking in more, but still limited PO. d/w Dr. Pace -- given zometa x1 03/27 follow lytes hospice consult Poor PO intake slightly improved, continue magic cups/ensure nutrition following still requiring IVF Megace added Leukocytosis likely reactive No evidence of acute infection, no evidence of sepsis No indication for antibiotics at this time Generalized weakness In the setting of above Pt with reduced p.o. intake Nutrition consult PT recommending home with services HTN Pt apparently no longer taking previous home meds, HLD Pt apparently no longer taking previous home meds DVT pptx -- lovenox attending Dr. Hernandez Quality Stroke Does the patient have a stroke diagnosis?: No VTE Prior VTE?: No VTE Risk Level:: Medical - moderate - high VTE Device Contraindication: Treatment Not Indicated VTE Drug Contraindication: N/A - Med Ordered
[2024-03-31 11:55] VITALS: RESP 17
[2024-03-31] MEDS: Scopolamine 1.5 MG PATCH.TD.3 EAR-BEHIND (12:09)
--- NOTE | 2024-03-31 12:14 | P.DS_ITS ---
DS: Providers Provider Date of admission: 03/26/24 21:26 Primary care physician: Suhas Mcintosh MD Consults: 03/26/24 21:33 Consult to Hematology / Oncology Routine Consulting Provider: [facility] Oncology/Hematology Reason for consultation: Pt getting worked up for possible met ovarian cancer DS: Diagnosis Discharge Diagnosis (1) Hypercalcemia: Status: Acute DS: Summary Hospital Course Hospital Course: History and physical as per admitting provider. Pt is an 79-year-old female with a PMH significant for?HTN and HLD who presents to the ED for evaluation of worsening generalized weakness and inability to walk since this morning. Patient was recently admitted to the hospital on 03/05-03/07 for hypercalcemia of 14.9 after presenting with loss of appetite and generalized weakness. Workup at that time showed large 22 cm heterogeneous attenuation left adnexal mass, highly suspicious for primary ovarian neoplasm, with evidence of metastasis to omentum/peritoneum, numerous pulmonary nodules, and large right hilar mass. Pt underwent CT-guided lung biopsy two days ago in short term stay surgery. Since then daughter reports pt has seemingly been progressively weak, though she has not been eating or drinking much the past few weeks. Earlier this morning pt was being helped to the bathroom by her when she found herself weak and unable to move. lowered her to the floor but then could not stand her up again so called EMS for assistance. Pt's only complaint is of generalized weakness. Denies lightheadedness or dizziness. No chest pain/pressure or palpitations. Denies abdominal pain. No N/V/D. Denies changes to bowel or bladder habits. No SOB or difficulty breathing. In the ED pt was tachycardic up to 130s and tachypnic to 21. Labs were significant for leukocytosis of 24.7, BUN 34, calcium 13.4, and albumin 3.1. CXR showed redemonstration of innumerable pulmonary nodules bilaterally. Initial EKG demonstrated sinus tachycardia with RBBB and left anterior fascicular block without evidence of significant ischemia. Pt was treated with 1L IVF. Pt will be admitted to the hospital for treatment and further evaluation of hypercalcemia and generalized weakness in the setting of likely metastatic ovarian cancer. 79-year-old woman treated for failure to thrive secondary to ovarian cancer with lung metastasis. Patient had very poor appetite and initially required IV fluids, had been started on Megace but poor appetite continued. Was discussion regarding tube feeds especially if patient and family wanted to pursue chemotherapy treatment. However due to patient's rapid decline, increased confusion the family decided to make patient comfort measures only with plan for transfer to home on hospice. The oncologist also discussed this with the family and the plan is to transfer patient home tomorrow after all hospice supplies are delivered to the home. During the hospitalization she was also treated for leukocytosis which was likely reactive to malignancy and hypercalcemia which was also likely secondary to malignancy. She was started on Zometa and had 1 dose of this on 03/27/2024. She was having some tachycardia and there was concern for pulmonary embolus in light of malignancy. CTA did show moderate bilateral pulmonary emboli with increasing amount of ascites. 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 scopolamine base 1 mg over 3 days patch 3 day 1 patch transdermal Q72H 12 Days Qty: 4 0RF Rx Instructions: 1 patch behind ear Q72H for secretions lorazepam [Lorazepam Intensol] 2 mg/mL concentrate 0.5 mg PO Q4H PRN (Reason: anxiety/restlessness) Qty: 30 0RF Diet: Advance to usual diet Activity on Discharge: As tolerated Stand Alone Forms: Patient Portal Discharge page Print Language: Puerto Rican Care Plan Goals: Transfer home with hospice services Health Concerns: Ovarian carcinoma with pulmonary metastasis Plan of Treatment: Comfort measures only with hospice. Home with morphine for pain, discomfort or tachypnea, lorazepam for anxiety or restlessness, scopolamine patch for secretions Assessment: See discharge summary
[2024-03-31] MEDS: LORazepam 2 MG/ML VIAL 0.5 MG IVPUSH ×2 (14:00→21:04)
[2024-03-31 15:37] VITALS: RESP 24
--- NOTE | 2024-03-31 16:02 | P.CDIM_ITS ---
PROVIDER RESPONSE TEXT: To clarify, the appropriate diagnosis supported by the clinical indicators: Moderate QUERY TEXT: PHYSICIAN'S DOCUMENTATION REQUEST Date of Query: 03/31/2024 05:54 AM EDT Patient Name: Heavenly Hartman Admit Date: 03/27/2024 Dear Beatriz Nieto, A review of the medical record indicates additional documentation may be needed. Please review below and update the documentation accordingly. Clinical indicators: Clinical nutrition note dated 03/27 - Patient is moderately [id number] malnutrition in th e context of acute illness. Mildly depleted subcutaneous fat and muscle mass with 13% significant wt loss x 3 weeks with poor po x 3 weeks. Recommend start Ensure TID to provide KCALS and magic cup with meal trays to provide protein. If possible, please provide additional specificity regarding the severity of the malnutrition using t he above information: Mild Moderate Severe Other (explain) Clinically unable to determine (explain) Thank you, Karmen Thakkar, CCS, CDIS Use of terms such as suspected, likely, concern for, or probable (associated with a specific diagnosi s that is being evaluated, monitored, or treated as if it exists) are acceptable and can be coded in the inpatient se tting, when documented at the time of discharge. Please use your independent medical judgment in providing your response. THIS QUERY IS PART OF THE PERMANENT MEDICAL RECORD
[2024-03-31] MEDS: 0.9 % Sodium Chloride Flush 3 ML SYRINGE IVFLUSH (16:19)
[2024-03-31 19:15] VITALS: BP 127/77; PULSE 84; RESP 20; TEMP 36.7; O2SAT 98
[2024-04-01] VITALS: RESP 16
[2024-04-01 03:30] VITALS: RESP 16
[2024-04-01 06:11] VITALS: RESP 22
[2024-04-01] MEDS: Morphine Sulfate 2 MG/ML CARTRIDGE 1 MG IVPUSH (06:11)
--- NOTE | 2024-04-01 06:42 | PC.NURSE ---
Decline in status continues.Medicated as ordered for anxiety and pain.Frequent oral care given. Poor urine out put.Bladder scan reveled 150ml in bladder post void.See i/o sheet.Son at bedside.Comfort measure maintain. emotional support given.
--- NOTE | 2024-04-01 08:30 | PM.DS ---
DS: Providers Provider Date of Service: 04/01/24 Date of admission: 03/26/24 21:26 Primary care physician: Suhas Mcintosh MD Consults: 03/26/24 21:33 Consult to Hematology / Oncology Routine Consulting Provider: [facility] Oncology/Hematology Reason for consultation: Pt getting worked up for possible met ovarian cancer DS: Diagnosis Discharge Diagnosis (1) Hypercalcemia: Status: Acute DS: Summary Hospital Course Hospital Course: History and physical as per admitting provider. Pt is an 79-year-old female with a PMH significant for?HTN and HLD who presents to the ED for evaluation of worsening generalized weakness and inability to walk since this morning. Patient was recently admitted to the hospital on 03/05-03/07 for hypercalcemia of 14.9 after presenting with loss of appetite and generalized weakness. Workup at that time showed large 22 cm heterogeneous attenuation left adnexal mass, highly suspicious for primary ovarian neoplasm, with evidence of metastasis to omentum/peritoneum, numerous pulmonary nodules, and large right hilar mass. Pt underwent CT-guided lung biopsy two days ago in short term stay surgery. Since then daughter reports pt has seemingly been progressively weak, though she has not been eating or drinking much the past few weeks. Earlier this morning pt was being helped to the bathroom by her when she found herself weak and unable to move. lowered her to the floor but then could not stand her up again so called EMS for assistance. Pt's only complaint is of generalized weakness. Denies lightheadedness or dizziness. No chest pain/pressure or palpitations. Denies abdominal pain. No N/V/D. Denies changes to bowel or bladder habits. No SOB or difficulty breathing. In the ED pt was tachycardic up to 130s and tachypnic to 21. Labs were significant for leukocytosis of 24.7, BUN 34, calcium 13.4, and albumin 3.1. CXR showed redemonstration of innumerable pulmonary nodules bilaterally. Initial EKG demonstrated sinus tachycardia with RBBB and left anterior fascicular block without evidence of significant ischemia. Pt was treated with 1L IVF. Pt will be admitted to the hospital for treatment and further evaluation of hypercalcemia and generalized weakness in the setting of likely metastatic ovarian cancer. 79-year-old woman treated for failure to thrive secondary to ovarian cancer with lung metastasis. Patient had very poor appetite and initially required IV fluids, had been started on Megace but poor appetite continued. Was discussion regarding tube feeds especially if patient and family wanted to pursue chemotherapy treatment. However due to patient's rapid decline, increased confusion the family decided to make patient comfort measures only with plan for transfer to home on hospice. The oncologist also discussed this with the family and the plan is to transfer patient home tomorrow after all hospice supplies are delivered to the home. During the hospitalization she was also treated for leukocytosis which was likely reactive to malignancy and hypercalcemia which was also likely secondary to malignancy. She was started on Zometa and had 1 dose of this on 03/27/2024. She was having some tachycardia and there was concern for pulmonary embolus in light of malignancy. CTA did show moderate bilateral pulmonary emboli with increasing amount of ascites. Time Attestation Total time managing care of this patient today: 20 mintues. Discharge Coordination Time (in mins): 20 Quality: Safe Use of Opioids Does Pt have an Active Cancer Diagnosis on the Problem List?: Yes Opioid Measure Date for [facility] Report: 03/02/24 Opioid Measure Time for [facility] Report: 12:00 Quality: Stroke Does the patient have a stroke diagnosis?: No Physical Exam Vital Signs: Vital Signs: Last Vital Signs Temp 98.1 F 03/31/24 19:15 Pulse 84 03/31/24 19:15 Resp 22 H 04/01/24 06:11 BP 127/77 03/31/24 19:15 Pulse Ox 98 03/31/24 19:15 O2 Del Method Room Air 03/31/24 19:15 BMI result Body Mass Index 31.9 Constitutional - Awake and Alert, No apparent distress Eyes - PERRLA, EOMI Cardiovascular - S1S2, RRR, No edema Respiratory - Normal lung expansion, Normal respiratory effort, No respiratory distress, CTA bilaterally Gastrointestinal - NT / ND; +BS; No rebound or guarding Extremities - no calf tenderness bilaterally, no swelling Skin - Warm/Dry Neurological - Alert & oriented x3 Psychological - Appropriate affect DS: Data Data Completed and Pending Completed studies during hospitalization [Text1]: Procedures Drainage of Peritoneal Cavity, Percutaneous Approach (03/05/24) Discharge Plan Discharge Anticipated Discharge Date/Time: 04/01/24 08:30 Patient Disposition: Hospice - Home Discharge Diagnosis: Ovarian carcinoma with pulmonary metastasis Referrals: [facility] [Outside] - 1 Day Suhas Mcintosh MD [Primary Care Provider] - 1 Week Discharge Medications: New morphine concentrate 100 mg/5 mL (20 mg/mL) solution 5 mg PO Q3H PRN (Reason: pain/comfort) 15 Days Qty: 30 0RF Rx Instructions: Partial Fill upon patient request. scopolamine base 1 mg over 3 days patch 3 day 1 patch transdermal Q72H 12 Days Qty: 4 0RF Rx Instructions: 1 patch behind ear Q72H for secretions lorazepam [Lorazepam Intensol] 2 mg/mL concentrate 0.5 mg PO Q4H PRN (Reason: anxiety/restlessness) Qty: 30 0RF Discharge Orders: Discharge Order (Routine); Ordered 04/01/24 Ordered By: Frankie Watts Diet: Advance to usual diet Activity on Discharge: As tolerated Stand Alone Forms: Patient Portal Discharge page Print Language: Vietnamese Care Plan Goals: Transfer home with hospice services Health Concerns: Ovarian carcinoma with pulmonary metastasis Plan of Treatment: Comfort measures only with hospice. Home with morphine for pain, discomfort or tachypnea, lorazepam for anxiety or restlessness, scopolamine patch for secretions Assessment: See discharge summary Discharge Date/Time: 04/01/24 10:56
--- NOTE | 2024-04-01 08:48 | MHC.CM.PN ---
IMM 04/01/24 DELIVERED TO [facility] AT BEDSIDE, LUCY OLSEN ALSO PRESENT AND SHE HAS PICKED UP HOSPICE COMFORT KIT FROM [facility] [place] FOR TRANSPORT AT 10AM
[2024-04-01] MEDS: Morphine Sulfate Oral Sol 10 MG/5 ML SOLUTION 5 MG PO (10:43)
== END 2024-04-01 10:56 | disposition hospice, home (50) | DRG 640 ==
LOC: HO.ED 20:17 → HO.EDOVER 21:38 → HO.IMC 03-27 04:36
PROVIDERS: Family Medicine; Internal Medicine; Physician Assistant; Admitting Provider Student in an Organized Health Care Education/Training Program; Emergency Provider Emergency Medicine; PCP Internal Medicine; Visit Provider Internal Medicine
DX: E83.52 Hypercalcemia (principal); I26.99 Other pulmonary embolism without acute cor pulmonale; C56.2 Malignant neoplasm of left ovary; C78.01 Secondary malignant neoplasm of right lung; E44.0 Moderate protein-calorie malnutrition; C78.7 Secondary malignant neoplasm of liver and intrahepatic bile duct; C78.6 Secondary malignant neoplasm of retroperitoneum and peritoneum; C78.02 Secondary malignant neoplasm of left lung; R62.7 Adult failure to thrive; Z51.5 Encounter for palliative care; Z66 Do not resuscitate; E86.0 Dehydration; I10 Essential (primary) hypertension; E78.5 Hyperlipidemia, unspecified; Z20.822 Contact with and (suspected) exposure to COVID-19; Z68.23 Body mass index [BMI] 23.0-23.9, adult; Z79.899 Other long term (current) drug therapy
CPT/HCPCS: 0241U; 32408; 36415; 71045; 71275; 74018; 80048; 80053; 80076; 82310; 83735; 85025; 85027; 85610; 85730; 88305; 88341; 88342; 93005; 97161; 97530; 99152; 99204; 99285; J1650; J2060; J2250; J2270; J2310; J3010; J3489; J7120; Q9967

== ENCOUNTER → 2024-03-26 17:18 | Outpatient (BNV) | payer MEDICARE, SELFPAY | PROVIDERS: Admitting Provider Student in an Organized Health Care Education/Training Program; Emergency Provider Emergency Medicine; PCP Internal Medicine; Visit Provider Internal Medicine Cardiovascular Disease | DX: R00.0 Tachycardia, unspecified (principal); I45.10 Unspecified right bundle-branch block; I45.2 Bifascicular block; R94.31 Abnormal electrocardiogram [ECG] [EKG] | CPT/HCPCS: 93010 ==

== ENCOUNTER → 2024-03-26 21:26 | Outpatient (BNV) | payer MEDICARE, SELFPAY | PROVIDERS: Admitting Provider Student in an Organized Health Care Education/Training Program; Emergency Provider Emergency Medicine; PCP Internal Medicine; Visit Provider Family Medicine | DX: E83.52 Hypercalcemia (principal) | CPT/HCPCS: 99223; 99232; 99238 ==